=== PATIENT | male | born 1990 | race Caucasian/White ===

== ENCOUNTER 2017-06-12 19:01 | Emergency (ER) | payer BC ==
[2017-06-12] MEDS: ONDANSETRON 4 MG INJ IV (22:38)
[2017-06-12] MEDS: SOD CHLORIDE 0.9% 1,000 ML IV (22:39)
== END 2017-06-13 05:03 | disposition home or self-care (01) ==
LOC: E/R 06-13 05:03
DX: F10.929 Alcohol use, unspecified with intoxication, unspecified (principal); R40.2132 Coma scale, eyes open, to sound, at arrival to emergency department; R40.2242 Coma scale, best verbal response, confused conversation, at arrival to emergency department; R40.2352 Coma scale, best motor response, localizes pain, at arrival to emergency department; R51 Headache; R07.9 Chest pain, unspecified
CPT/HCPCS: 70450; 71045; 96374; 99285-25

== ENCOUNTER 2017-08-14 10:30 | Emergency (ER) | payer BC ==
[2017-08-14] MEDS: IBUPROFEN 800 MG TAB PO (12:18)
[2017-08-14] MEDS: BENOXINATE HCL/FLUORESCEIN SOD 5 ML OPHTH RIGHT EYE (12:25)
== END 2017-08-14 14:28 | disposition home or self-care (01) ==
LOC: FTE 10:30
DX: S05.91XA Unspecified injury of right eye and orbit, initial encounter (principal); E11.9 Type 2 diabetes mellitus without complications; I50.9 Heart failure, unspecified; F17.210 Nicotine dependence, cigarettes, uncomplicated; W34.00XA Accidental discharge from unspecified firearms or gun, initial encounter; Y92.9 Unspecified place or not applicable
CPT/HCPCS: 76536; 99284-25

== ENCOUNTER 2017-08-21 11:06 | Emergency (ER) | payer BC | END 2017-08-21 12:41 | disposition home or self-care (01) | LOC: FTE 11:06 | DX: Z76.0 Encounter for issue of repeat prescription (principal); J45.909 Unspecified asthma, uncomplicated; E10.9 Type 1 diabetes mellitus without complications; Z79.82 Long term (current) use of aspirin; Z79.4 Long term (current) use of insulin | CPT/HCPCS: 82962; 99282 ==

== ENCOUNTER 2017-08-24 08:04 | Emergency (ER) | payer BC ==
[2017-08-24 10:34] LABS: ADD MAN DIFF? NO
[2017-08-24 10:39] LABS: BASOPHILS % 0.5 % (0.0-2.0); EOSINOPHILS % 0.2 % (0.0-7.0); HEMOGLOBIN 15.9 g/dl (14.0-18.0); LYMPHOCYTES # 0.9 10^3/ul (0.8-2.9); LYMPHOCYTES % 22.5 % (15.0-51.0); MEAN CORPUSCULAR HEMOGLOBIN 31.8 pg (29.0-33.0); MEAN CORPUSCULAR HGB CONC 33.8 g/dl (32.0-37.0); MEAN PLATELET VOLUME 7.9 fl (7.4-10.4); MONOCYTE # 0.2 10^3/ul (0.3-0.9); MONOCYTES % 5.7 % (0.0-11.0); NEUTROPHIL # 2.8 10^3/ul (1.6-7.5); NEUTROPHILS % 69.9 % (39.0-77.0); PLATELET COUNT 413 10^3/UL (140-415); RED CELL DISTRIBUTION WIDTH 12.8 % (11.5-14.5)
[2017-08-24] MEDS: ONDANSETRON 4 MG INJ IV (10:45)
[2017-08-24] MEDS: morphine 2 MG INJ IV (10:45)
[2017-08-24] MEDS ORDERED: ONDANSETRON (ODT) 4 MG TAB ODT (10:46)
[2017-08-24 10:52] LABS: HEMOGLOBIN A1C 7.5 % (0-5.9)
[2017-08-24 10:58] LABS: ALANINE AMINOTRANSFERASE 47 IU/L (13-69); ALBUMIN 5.1 g/dl (3.3-4.9); ALBUMIN/GLOBULIN RATIO 1.15; ALKALINE PHOSPHATASE 118 IU/L (42-121); ANION GAP 39 (8-16); ASPARTATE AMINO TRANSFERASE 61 IU/L (15-46); BILIRUBIN,INDIRECT 0.3 mg/dl (0-1.1); BILIRUBIN,TOTAL 0.3 mg/dl (0.2-1.3); BLOOD UREA NITROGEN 12 mg/dl (7-20); CALCIUM 9.3 mg/dl (8.4-10.2); CARBON DIOXIDE 17 mmol/L (21-31); CHLORIDE 98 mmol/L (97-110); CREATINE KINASE 828 IU/L (23-200); CREATININE 0.84 mg/dl (0.61-1.24); GLUCOSE 271 mg/dl (70-220); POTASSIUM 4.6 mmol/L (3.5-5.1); SODIUM 149 mmol/L (135-144); TOTAL PROTEIN 9.5 g/dl (6.1-8.1)
[2017-08-24 11:00] LABS: INR 1.05; PROTIME 13.8 Sec (11.9-14.9); PT RATIO 1.1
[2017-08-24 11:01] LABS: PARTIAL THROMBOPLASTIN TIME 23.6 Sec (25.0-35.0)
[2017-08-24 11:09] LABS: CK INDEX 0.6
[2017-08-24 11:12] LABS: B-TYPE NATRIURETIC PEPTIDE < 11 PG/ML (0-125); CK-MB 5.35 ng/ml (0.0-2.4); TROPONIN-I < 0.012 ng/ml (0.00-0.12)
[2017-08-24 11:14] LABS: ADD UMIC YES; UR ASCORBIC ACID NEGATIVE (NEGATIVE); UR BILIRUBIN (Dip) NEGATIVE (NEGATIVE); UR BLOOD (Dip) 2+ mg/dL (NEGATIVE); UR CLARITY CLEAR (CLEAR); UR COLOR YELLOW (YELLOW); UR GLUCOSE (Dip) 3+ mg/dL (NEGATIVE); UR KETONES (Dip) 2+ mg/dL (NEGATIVE); UR LEUKOCYTE ESTERASE (Dip) NEGATIVE Leu/ul (NEGATIVE); UR MUCUS FEW /HPF (NONE SEEN); UR NITRITE (Dip) NEGATIVE (NEGATIVE); UR RBC 0 /HPF (0-5); UR SPECIFIC GRAVITY (Dip) 1.022 (1.003-1.030); UR TOTAL PROTEIN (Dip) 3+ mg/dl (NEGATIVE); UR UROBILINOGEN (Dip) NEGATIVE (NEGATIVE); UR WBC 1 /HPF (0-5)
[2017-08-24 11:29] LABS: AMPHETAMINE/METHAMPHETAMINE Negative (NEGATIVE); BARBITURATES Negative (NEGATIVE); BENZODIAZEPINES Negative (NEGATIVE); CANNABINOIDS Negative (NEGATIVE); COCAINE Negative (NEGATIVE); OPIATES Negative (NEGATIVE)
[2017-08-24] MEDS: INSULIN LISPRO 100 UNIT/ML VIAL SC (13:27)
[2017-08-24] MEDS: PROMETHAZINE 25 MG TAB PO (13:47)
== END 2017-08-24 15:45 | disposition home or self-care (01) ==
LOC: FTE 08:04 → E/R 15:45
DX: F10.929 Alcohol use, unspecified with intoxication, unspecified (principal); M94.0 Chondrocostal junction syndrome [Tietze]; E11.65 Type 2 diabetes mellitus with hyperglycemia; I10 Essential (primary) hypertension; I50.9 Heart failure, unspecified; F17.210 Nicotine dependence, cigarettes, uncomplicated; Z79.82 Long term (current) use of aspirin; Z79.4 Long term (current) use of insulin
CPT/HCPCS: 71045; 80053; 80306; 80307; 81001; 82550; 82553; 82962; 83036; 83880; 84484; 85025; 85610; 85730; 93005; 96372; 96374; 96375; 99285-25

== ENCOUNTER 2017-08-25 00:42 | Inpatient (IN) | payer BC ==
[2017-08-25 05:18] LABS: ADD MAN DIFF? NO
[2017-08-25 05:19] LABS: WHITE BLOOD COUNT 6.9 10^3/ul (4.8-10.8)
[2017-08-25 05:19] LABS: BASOPHILS % 0.3 % (0.0-2.0); EOSINOPHILS % 0.1 % (0.0-7.0); HEMATOCRIT 47.4 % (42.0-52.0); HEMOGLOBIN 16.3 g/dl (14.0-18.0); LYMPHOCYTES # 1.1 10^3/ul (0.8-2.9); LYMPHOCYTES % 15.6 % (15.0-51.0); MEAN CORPUSCULAR HEMOGLOBIN 31.8 pg (29.0-33.0); MEAN CORPUSCULAR HGB CONC 34.4 g/dl (32.0-37.0); MEAN CORPUSCULAR VOLUME 92.4 fl (82.0-101.0); MEAN PLATELET VOLUME 7.8 fl (7.4-10.4); MONOCYTE # 0.4 10^3/ul (0.3-0.9); MONOCYTES % 6.2 % (0.0-11.0); NEUTROPHIL # 5.4 10^3/ul (1.6-7.5); NEUTROPHILS % 77.5 % (39.0-77.0); PLATELET COUNT 417 10^3/UL (140-415); RED BLOOD COUNT 5.13 10^6/ul (4.70-6.10); RED CELL DISTRIBUTION WIDTH 13.2 % (11.5-14.5)
[2017-08-25] MEDS: ONDANSETRON 4 MG INJ IV (05:37)
[2017-08-25] MEDS: ASPIRIN 81 MG TAB PO ×2 (05:37→09:30)
[2017-08-25 05:45] LABS: ANION GAP 39 (8-16); BLOOD UREA NITROGEN 14 mg/dl (7-20); CALCIUM 9.8 mg/dl (8.4-10.2); CARBON DIOXIDE 15 mmol/L (21-31); CHLORIDE 98 mmol/L (97-110); CREATININE 1.02 mg/dl (0.61-1.24); GLUCOSE 269 mg/dl (70-220); POTASSIUM 5.3 mmol/L (3.5-5.1); SODIUM 147 mmol/L (135-144)
[2017-08-25 05:57] LABS: B-TYPE NATRIURETIC PEPTIDE 11 PG/ML (0-125)
[2017-08-25 06:00] LABS: TROPONIN-I < 0.012 ng/ml (0.00-0.12)
[2017-08-25] MEDS: DEXTROSE 5%-0.9% NACL 1,000 ML IV (06:25)
[2017-08-25] MEDS: INSULIN LISPRO 100 UNIT/ML VIAL SC (06:26)
[2017-08-25] MEDS ORDERED: ONDANSETRON 4 MG INJ IV ×2 (08:00→08:30)
[2017-08-25] MEDS ORDERED: ACETAMINOPHEN 325 MG TAB PO ×2 (08:00→08:30)
[2017-08-25] MEDS ORDERED: NACL 0.9% 3 ML SYG IV (08:30)
[2017-08-25] MEDS ORDERED: GLUCAGON 1 MG INJ IM (09:00)
[2017-08-25] MEDS ORDERED: DEXTROSE 50% 50 ML SYRINGE IV ×2 (09:00)
[2017-08-25] MEDS ORDERED: GLUCOSE GEL 15 GRAM TUBE BUCCAL (09:00)
[2017-08-25] MEDS ORDERED: LORAZEPAM 2 MG INJ IV (09:00)
[2017-08-25] MEDS ORDERED: GLUCOSE GEL 15 GRAM TUBE PO ×2 (09:00)
[2017-08-25] MEDS: SOD CHLORIDE 0.9% 1,000 ML IV ×2 (09:30→17:12)
[2017-08-25] MEDS: CHLORDIAZEPOXIDE 25 MG CAP PO ×3 (09:30→20:28)
[2017-08-25] MEDS: FOLIC ACID 1 MG TAB PO (09:31)
[2017-08-25] MEDS: THIAMINE 100 MG TAB PO (09:31)
[2017-08-25 09:32] LABS: HEMOGLOBIN A1C 7.7 % (0-5.9)
[2017-08-25] MEDS: HEPARIN 5,000 UNIT/0.5 ML VIAL SC ×2 (09:33→20:27)
[2017-08-25 09:42] LABS: THYROID STIMULATING HORMONE 0.172 MIU/L (0.465-4.680)
[2017-08-25] MEDS: NITROGLYCERIN (SL) 0.4 MG TAB SL (09:59)
[2017-08-25 10:24] LABS: FREE T4 (FREE THYROXINE) 0.93 ng/dl (0.79-2.35)
[2017-08-25 11:47] LABS: CREATINE KINASE 860 IU/L (23-200)
[2017-08-25 11:49] LABS: ANION GAP 29 (8-16); BLOOD UREA NITROGEN 12 mg/dl (7-20); CALCIUM 9.1 mg/dl (8.4-10.2); CARBON DIOXIDE 17 mmol/L (21-31); CHLORIDE 101 mmol/L (97-110); CREATININE 0.83 mg/dl (0.61-1.24); GLUCOSE 271 mg/dl (70-220); POTASSIUM 4.9 mmol/L (3.5-5.1); SODIUM 142 mmol/L (135-144)
[2017-08-25] MEDS: INSULIN ASPART [NOVOLOG] 3 ML PEN SC ×5 (11:51→20:29)
[2017-08-25 11:58] LABS: CK INDEX 0.6; CK-MB 5.33 ng/ml (0.0-2.4); TROPONIN-I < 0.012 ng/ml (0.00-0.12)
[2017-08-25 17:00] LABS: CREATINE KINASE 656 IU/L (23-200)
[2017-08-25 17:12] LABS: CK INDEX 0.8
[2017-08-25 17:14] LABS: CK-MB 5.21 ng/ml (0.0-2.4); TROPONIN-I < 0.012 ng/ml (0.00-0.12)
[2017-08-25] MEDS: HYDROCODONE/APAP (5/325) TAB PO (19:29)
[2017-08-25 19:37] LABS: ADD UMIC YES; UR ASCORBIC ACID NEGATIVE (NEGATIVE); UR BILIRUBIN (Dip) NEGATIVE (NEGATIVE); UR BLOOD (Dip) 1+ mg/dL (NEGATIVE); UR CLARITY CLEAR (CLEAR); UR COLOR YELLOW (YELLOW); UR GLUCOSE (Dip) 3+ mg/dL (NEGATIVE); UR KETONES (Dip) 2+ mg/dL (NEGATIVE); UR LEUKOCYTE ESTERASE (Dip) NEGATIVE Leu/ul (NEGATIVE); UR MUCUS FEW /HPF (NONE SEEN); UR NITRITE (Dip) NEGATIVE (NEGATIVE); UR RBC 0 /HPF (0-5); UR TOTAL PROTEIN (Dip) 2+ mg/dl (NEGATIVE); UR UROBILINOGEN (Dip) NEGATIVE (NEGATIVE); UR WBC 1 /HPF (0-5)
[2017-08-25 20:01] LABS: AMPHETAMINE/METHAMPHETAMINE Negative (NEGATIVE); BARBITURATES Negative (NEGATIVE); BENZODIAZEPINES Negative (NEGATIVE); CANNABINOIDS Negative (NEGATIVE); COCAINE Negative (NEGATIVE); OPIATES Negative (NEGATIVE)
[2017-08-25] MEDS: INSULIN GLARGINE [LANtus] 3 ML PEN SC (20:27)
[2017-08-26] MEDS: morphine 2 MG INJ IV ×2 (03:09→12:44)
[2017-08-26] MEDS: SOD CHLORIDE 0.9% 1,000 ML IV ×3 (03:10→22:47)
[2017-08-26 06:11] LABS: ADD MAN DIFF? NO
[2017-08-26 06:18] LABS: BASOPHILS % 0.3 % (0.0-2.0); EOSINOPHILS % 1.3 % (0.0-7.0); HEMATOCRIT 36.1 % (42.0-52.0); HEMOGLOBIN 12.7 g/dl (14.0-18.0); LYMPHOCYTES # 1.4 10^3/ul (0.8-2.9); LYMPHOCYTES % 44.4 % (15.0-51.0); MEAN CORPUSCULAR HEMOGLOBIN 32.8 pg (29.0-33.0); MEAN CORPUSCULAR HGB CONC 35.2 g/dl (32.0-37.0); MEAN CORPUSCULAR VOLUME 93.3 fl (82.0-101.0); MEAN PLATELET VOLUME 7.9 fl (7.4-10.4); MONOCYTE # 0.5 10^3/ul (0.3-0.9); MONOCYTES % 15.1 % (0.0-11.0); NEUTROPHIL # 1.2 10^3/ul (1.6-7.5); NEUTROPHILS % 38.9 % (39.0-77.0); PLATELET COUNT 264 10^3/UL (140-415); RED BLOOD COUNT 3.87 10^6/ul (4.70-6.10); RED CELL DISTRIBUTION WIDTH 13.1 % (11.5-14.5)
[2017-08-26 06:44] LABS: ALANINE AMINOTRANSFERASE 49 IU/L (13-69); ALBUMIN 3.8 g/dl (3.3-4.9); ALBUMIN/GLOBULIN RATIO 1.11; ALKALINE PHOSPHATASE 73 IU/L (42-121); ANION GAP 18 (8-16); ASPARTATE AMINO TRANSFERASE 56 IU/L (15-46); BILIRUBIN,INDIRECT 1.3 mg/dl (0-1.1); BILIRUBIN,TOTAL 1.3 mg/dl (0.2-1.3); BLOOD UREA NITROGEN 14 mg/dl (7-20); CALCIUM 8.8 mg/dl (8.4-10.2); CARBON DIOXIDE 26 mmol/L (21-31); CHLORIDE 102 mmol/L (97-110); CREATININE 0.84 mg/dl (0.61-1.24); GLUCOSE 182 mg/dl (70-220); POTASSIUM 3.5 mmol/L (3.5-5.1); SODIUM 142 mmol/L (135-144); TOTAL PROTEIN 7.2 g/dl (6.1-8.1)
[2017-08-26 06:50] LABS: PHOSPHORUS 2.8 mg/dl (2.5-4.9)
[2017-08-26 06:50] LABS: CHOL/HDL RATIO 2.8 RATIO; CHOLESTEROL 175 mg/dl (100-200); HDL CHOLESTEROL 62 mg/dl (30-63); LDL CHOLESTEROL,CALCULATED 93 mg/dl; MAGNESIUM 1.9 mg/dl (1.7-2.5); TRIGLYCERIDES 101 mg/dl (0-149)
[2017-08-26] MEDS: INSULIN ASPART [NOVOLOG] 3 ML PEN SC ×7 (08:22→20:44)
[2017-08-26] MEDS: THIAMINE 100 MG TAB PO (09:06)
[2017-08-26] MEDS: ASPIRIN 81 MG TAB PO (09:07)
[2017-08-26] MEDS: FOLIC ACID 1 MG TAB PO (09:07)
[2017-08-26] MEDS: HEPARIN 5,000 UNIT/0.5 ML VIAL SC ×2 (09:09→20:45)
[2017-08-26] MEDS: CHLORDIAZEPOXIDE 25 MG CAP PO (10:57)
[2017-08-26] MEDS: INSULIN GLARGINE [LANtus] 3 ML PEN SC (20:44)
[2017-08-26] MEDS: morphine LIQ (10 MG/5 ML) CUP PO (22:54)
[2017-08-27] MEDS: SOD CHLORIDE 0.9% 1,000 ML IV ×4 (00:30→17:42)
[2017-08-27] MEDS: morphine LIQ (10 MG/5 ML) CUP PO (06:22)
[2017-08-27 07:28] LABS: ADD MAN DIFF? NO
[2017-08-27 07:31] LABS: BASOPHILS % 0.3 % (0.0-2.0); EOSINOPHILS # 0.1 10^3/ul (0.0-0.5); EOSINOPHILS % 2.7 % (0.0-7.0); HEMATOCRIT 37.5 % (42.0-52.0); HEMOGLOBIN 12.9 g/dl (14.0-18.0); LYMPHOCYTES # 1.1 10^3/ul (0.8-2.9); MEAN CORPUSCULAR HEMOGLOBIN 31.9 pg (29.0-33.0); MEAN CORPUSCULAR HGB CONC 34.4 g/dl (32.0-37.0); MEAN CORPUSCULAR VOLUME 92.8 fl (82.0-101.0); MEAN PLATELET VOLUME 8.3 fl (7.4-10.4); MONOCYTE # 0.4 10^3/ul (0.3-0.9); MONOCYTES % 12.3 % (0.0-11.0); NEUTROPHIL # 1.4 10^3/ul (1.6-7.5); NEUTROPHILS % 46.7 % (39.0-77.0); PLATELET COUNT 275 10^3/UL (140-415); RED BLOOD COUNT 4.04 10^6/ul (4.70-6.10); RED CELL DISTRIBUTION WIDTH 12.4 % (11.5-14.5)
[2017-08-27] MEDS: INSULIN ASPART [NOVOLOG] 3 ML PEN SC ×7 (07:55→20:45)
[2017-08-27 07:56] LABS: ANION GAP 14 (8-16); BLOOD UREA NITROGEN 10 mg/dl (7-20); CARBON DIOXIDE 31 mmol/L (21-31); CHLORIDE 101 mmol/L (97-110); CREATININE 0.74 mg/dl (0.61-1.24); GLUCOSE 103 mg/dl (70-220); POTASSIUM 3.2 mmol/L (3.5-5.1); SODIUM 143 mmol/L (135-144)
[2017-08-27] MEDS: THIAMINE 100 MG TAB PO (08:36)
[2017-08-27] MEDS: FOLIC ACID 1 MG TAB PO (08:37)
[2017-08-27] MEDS: ASPIRIN 81 MG TAB PO (08:37)
[2017-08-27] MEDS: HEPARIN 5,000 UNIT/0.5 ML VIAL SC ×2 (08:49→20:45)
[2017-08-27] MEDS: POLYETHYLENE GLYCOL 17 GM PACKET PO (13:30)
[2017-08-27 16:06] LABS: C-PEPTIDE 0.12 ng/mL (0.80-3.85)
[2017-08-27 17:22] LABS: TROPONIN-I < 0.012 ng/ml (0.00-0.12)
[2017-08-27] MEDS: POTASSIUM CHLORIDE (SR) 20 MEQ TAB PO (17:38)
[2017-08-27] MEDS: INSULIN GLARGINE [LANtus] 3 ML PEN SC (20:46)
[2017-08-28] MEDS: morphine LIQ (10 MG/5 ML) CUP PO ×2 (02:05→23:08)
[2017-08-28] MEDS: SOD CHLORIDE 0.9% 1,000 ML IV ×3 (02:05→16:00)
[2017-08-28 07:48] LABS: ADD MAN DIFF? NO
[2017-08-28 07:54] LABS: WHITE BLOOD COUNT 2.8 10^3/ul (4.8-10.8)
[2017-08-28 07:54] LABS: BASOPHILS % 0.4 % (0.0-2.0); EOSINOPHILS # 0.1 10^3/ul (0.0-0.5); EOSINOPHILS % 3.5 % (0.0-7.0); HEMATOCRIT 39.1 % (42.0-52.0); HEMOGLOBIN 13.4 g/dl (14.0-18.0); LYMPHOCYTES # 1.2 10^3/ul (0.8-2.9); LYMPHOCYTES % 42.2 % (15.0-51.0); MEAN CORPUSCULAR HEMOGLOBIN 31.7 pg (29.0-33.0); MEAN CORPUSCULAR HGB CONC 34.3 g/dl (32.0-37.0); MEAN CORPUSCULAR VOLUME 92.4 fl (82.0-101.0); MEAN PLATELET VOLUME 8.4 fl (7.4-10.4); MONOCYTE # 0.3 10^3/ul (0.3-0.9); MONOCYTES % 11.7 % (0.0-11.0); NEUTROPHIL # 1.2 10^3/ul (1.6-7.5); NEUTROPHILS % 41.8 % (39.0-77.0); PLATELET COUNT 263 10^3/UL (140-415); RED BLOOD COUNT 4.23 10^6/ul (4.70-6.10); RED CELL DISTRIBUTION WIDTH 12.2 % (11.5-14.5)
[2017-08-28 08:14] LABS: ANION GAP 15 (8-16); BLOOD UREA NITROGEN 10 mg/dl (7-20); CARBON DIOXIDE 29 mmol/L (21-31); CHLORIDE 101 mmol/L (97-110); CREATININE 0.72 mg/dl (0.61-1.24); GLUCOSE 243 mg/dl (70-220); POTASSIUM 3.7 mmol/L (3.5-5.1); SODIUM 141 mmol/L (135-144)
[2017-08-28] MEDS: FOLIC ACID 1 MG TAB PO (08:36)
[2017-08-28] MEDS: ASPIRIN 81 MG TAB PO (08:36)
[2017-08-28] MEDS: THIAMINE 100 MG TAB PO (08:36)
[2017-08-28] MEDS: HEPARIN 5,000 UNIT/0.5 ML VIAL SC ×2 (08:47→20:43)
[2017-08-28] MEDS: INSULIN ASPART [NOVOLOG] 3 ML PEN SC ×7 (08:47→22:10)
[2017-08-28] MEDS: INSULIN GLARGINE [LANtus] 3 ML PEN SC (20:44)
[2017-08-29] MEDS: SOD CHLORIDE 0.9% 1,000 ML IV ×4 (00:38→23:56)
[2017-08-29] MEDS: INSULIN ASPART [NOVOLOG] 3 ML PEN SC ×7 (08:15→21:03)
[2017-08-29] MEDS: THIAMINE 100 MG TAB PO (08:40)
[2017-08-29] MEDS: ASPIRIN 81 MG TAB PO (08:40)
[2017-08-29] MEDS: FOLIC ACID 1 MG TAB PO (08:40)
[2017-08-29] MEDS: HEPARIN 5,000 UNIT/0.5 ML VIAL SC ×2 (08:46→21:04)
[2017-08-29 09:01] LABS: ADD MAN DIFF? NO
[2017-08-29 09:12] LABS: BASOPHILS % 0.3 % (0.0-2.0); EOSINOPHILS # 0.1 10^3/ul (0.0-0.5); EOSINOPHILS % 3.5 % (0.0-7.0); HEMATOCRIT 39.5 % (42.0-52.0); HEMOGLOBIN 13.8 g/dl (14.0-18.0); LYMPHOCYTES # 1.3 10^3/ul (0.8-2.9); MEAN CORPUSCULAR HEMOGLOBIN 32.5 pg (29.0-33.0); MEAN CORPUSCULAR HGB CONC 34.9 g/dl (32.0-37.0); MEAN CORPUSCULAR VOLUME 92.9 fl (82.0-101.0); MEAN PLATELET VOLUME 8.8 fl (7.4-10.4); MONOCYTE # 0.4 10^3/ul (0.3-0.9); MONOCYTES % 10.6 % (0.0-11.0); NEUTROPHIL # 1.6 10^3/ul (1.6-7.5); PLATELET COUNT 264 10^3/UL (140-415); RED BLOOD COUNT 4.25 10^6/ul (4.70-6.10); RED CELL DISTRIBUTION WIDTH 12.2 % (11.5-14.5)
[2017-08-29 09:12] LABS: WHITE BLOOD COUNT 3.4 10^3/ul (4.8-10.8)
[2017-08-29 09:28] LABS: ANION GAP 16 (8-16); BLOOD UREA NITROGEN 11 mg/dl (7-20); CALCIUM 9.4 mg/dl (8.4-10.2); CARBON DIOXIDE 29 mmol/L (21-31); CHLORIDE 100 mmol/L (97-110); GLUCOSE 234 mg/dl (70-220); POTASSIUM 3.7 mmol/L (3.5-5.1); SODIUM 141 mmol/L (135-144)
[2017-08-29] MEDS: INSULIN GLARGINE [LANtus] 3 ML PEN SC (21:04)
[2017-08-30 06:40] LABS: ADD MAN DIFF? NO
[2017-08-30 06:43] LABS: BASOPHILS % 0.3 % (0.0-2.0); EOSINOPHILS # 0.1 10^3/ul (0.0-0.5); EOSINOPHILS % 2.4 % (0.0-7.0); HEMATOCRIT 40.6 % (42.0-52.0); HEMOGLOBIN 14.1 g/dl (14.0-18.0); LYMPHOCYTES # 1.4 10^3/ul (0.8-2.9); LYMPHOCYTES % 40.4 % (15.0-51.0); MEAN CORPUSCULAR HEMOGLOBIN 31.8 pg (29.0-33.0); MEAN CORPUSCULAR HGB CONC 34.7 g/dl (32.0-37.0); MEAN CORPUSCULAR VOLUME 91.6 fl (82.0-101.0); MEAN PLATELET VOLUME 8.3 fl (7.4-10.4); MONOCYTE # 0.4 10^3/ul (0.3-0.9); MONOCYTES % 10.8 % (0.0-11.0); NEUTROPHIL # 1.5 10^3/ul (1.6-7.5); NEUTROPHILS % 45.8 % (39.0-77.0); PLATELET COUNT 247 10^3/UL (140-415); RED BLOOD COUNT 4.43 10^6/ul (4.70-6.10); RED CELL DISTRIBUTION WIDTH 12.3 % (11.5-14.5)
[2017-08-30 06:43] LABS: WHITE BLOOD COUNT 3.3 10^3/ul (4.8-10.8)
[2017-08-30 07:10] LABS: ANION GAP 18 (8-16); BLOOD UREA NITROGEN 13 mg/dl (7-20); CALCIUM 9.5 mg/dl (8.4-10.2); CARBON DIOXIDE 27 mmol/L (21-31); CHLORIDE 99 mmol/L (97-110); CREATININE 0.79 mg/dl (0.61-1.24); GLUCOSE 379 mg/dl (70-220); POTASSIUM 4.2 mmol/L (3.5-5.1); SODIUM 140 mmol/L (135-144)
[2017-08-30] MEDS: SOD CHLORIDE 0.9% 1,000 ML IV ×2 (08:30→15:51)
[2017-08-30] MEDS: THIAMINE 100 MG TAB PO (08:35)
[2017-08-30] MEDS: FOLIC ACID 1 MG TAB PO (08:35)
[2017-08-30] MEDS: ASPIRIN 81 MG TAB PO (08:35)
[2017-08-30] MEDS: INSULIN ASPART [NOVOLOG] 3 ML PEN SC ×6 (08:55→18:15)
[2017-08-30] MEDS: HEPARIN 5,000 UNIT/0.5 ML VIAL SC (08:56)
[2017-08-30] MEDS ORDERED: INSULIN GLARGINE [LANtus] 3 ML PEN SC (20:00)
== END 2017-08-30 21:05 | disposition left against medical advice (07) | DRG 206 ==
LOC: TEL 08-26 01:06 → E/R 00:42 → MS2 08:01 → MS3 11:49
DX: M94.0 Chondrocostal junction syndrome [Tietze] (principal); E87.2 Acidosis; R07.9 Chest pain, unspecified; E87.5 Hyperkalemia; F10.129 Alcohol abuse with intoxication, unspecified; F17.200 Nicotine dependence, unspecified, uncomplicated; Y90.6 Blood alcohol level of 120-199 mg/100 ml; Z79.4 Long term (current) use of insulin; E10.65 Type 1 diabetes mellitus with hyperglycemia
CPT/HCPCS: 36415; 71045; 74176; 80048; 80053; 80061; 80306; 80307; 81001; 82550; 82553; 82962; 83036; 83735; 83880; 84100; 84439; 84443; 84484; 84681; 85025; 93005; 93306; 96372; 96374; 99291-25

== ENCOUNTER 2017-10-20 19:30 | Emergency (ER) | payer BC ==
[2017-10-20] MEDS: SOD CHLORIDE 0.9% 2,000 ML IV (20:33)
[2017-10-20] MEDS: LACTATED RINGER'S 1,000 ML IV (20:33)
[2017-10-20 20:34] LABS: ADD MAN DIFF? NO
[2017-10-20 20:37] LABS: WHITE BLOOD COUNT 6.1 10^3/ul (4.8-10.8)
[2017-10-20 20:37] LABS: BASOPHILS % 0.5 % (0.0-2.0); EOSINOPHILS # 0.2 10^3/ul (0.0-0.5); EOSINOPHILS % 2.6 % (0.0-7.0); HEMATOCRIT 43.5 % (42.0-52.0); HEMOGLOBIN 15.2 g/dl (14.0-18.0); LYMPHOCYTES # 2.5 10^3/ul (0.8-2.9); MEAN CORPUSCULAR HGB CONC 34.9 g/dl (32.0-37.0); MEAN CORPUSCULAR VOLUME 91.6 fl (82.0-101.0); MEAN PLATELET VOLUME 8.2 fl (7.4-10.4); MONOCYTE # 0.5 10^3/ul (0.3-0.9); MONOCYTES % 7.7 % (0.0-11.0); NEUTROPHIL # 2.9 10^3/ul (1.6-7.5); PLATELET COUNT 378 10^3/UL (140-415); RED BLOOD COUNT 4.75 10^6/ul (4.70-6.10)
[2017-10-20] MEDS: KETOROLAC 30 MG INJ IV (20:39)
[2017-10-20] MEDS: LORAZEPAM 2 MG INJ IV (20:39)
[2017-10-20 20:53] LABS: ANION GAP 29 (8-16); BLOOD UREA NITROGEN 16 mg/dl (7-20); CALCIUM 9.6 mg/dl (8.4-10.2); CARBON DIOXIDE 24 mmol/L (21-31); CHLORIDE 104 mmol/L (97-110); CREATININE 0.93 mg/dl (0.61-1.24); GLUCOSE 136 mg/dl (70-220); POTASSIUM 4.1 mmol/L (3.5-5.1); SODIUM 153 mmol/L (135-144)
[2017-10-20 21:03] LABS: LACTIC ACID 5.6 mmol/L (0.5-2.0)
[2017-10-20 21:31] LABS: ALANINE AMINOTRANSFERASE 25 IU/L (13-69); ALBUMIN 4.9 g/dl (3.3-4.9); ALKALINE PHOSPHATASE 91 IU/L (42-121); ASPARTATE AMINO TRANSFERASE 51 IU/L (15-46); BILIRUBIN,INDIRECT 0.7 mg/dl (0-1.1); BILIRUBIN,TOTAL 0.7 mg/dl (0.2-1.3); LIPASE 99 U/L (23-300); TOTAL PROTEIN 8.7 g/dl (6.1-8.1)
[2017-10-20] MEDS: DEXTROSE 5%-0.9% NACL 1,000 ML IV (22:51)
[2017-10-20 23:24] LABS: LACTIC ACID 5.3 mmol/L (0.5-2.0)
== END 2017-10-21 01:33 | disposition home or self-care (01) ==
LOC: E/R 10-21 01:33 → FTE 19:30
DX: F10.121 Alcohol abuse with intoxication delirium (principal); I50.9 Heart failure, unspecified; E11.9 Type 2 diabetes mellitus without complications; Z79.4 Long term (current) use of insulin; Z87.891 Personal history of nicotine dependence
CPT/HCPCS: 36415; 71045; 80048; 80076; 80307; 82962; 83605; 83690; 85025; 96374; 96375; 99291-25

== ENCOUNTER 2017-11-19 14:58 | Inpatient (IN) | payer BC ==
[2017-11-19] MEDS: ONDANSETRON 4 MG INJ IV ×2 (16:43→17:25)
[2017-11-19] MEDS: PANTOPRAZOLE 40 MG INJ IV (16:43)
[2017-11-19] MEDS: FAMOTIDINE 20 MG INJ IV (16:43)
[2017-11-19 16:54] LABS: ADD MAN DIFF? NO
[2017-11-19 16:58] LABS: WHITE BLOOD COUNT 11.4 10^3/ul (4.8-10.8)
[2017-11-19 16:58] LABS: BASOPHILS % 0.3 % (0.0-2.0); HEMATOCRIT 50.1 % (42.0-52.0); HEMOGLOBIN 16.2 g/dl (14.0-18.0); LYMPHOCYTES # 0.7 10^3/ul (0.8-2.9); LYMPHOCYTES % 6.5 % (15.0-51.0); MEAN CORPUSCULAR HEMOGLOBIN 32.3 pg (29.0-33.0); MEAN CORPUSCULAR HGB CONC 32.3 g/dl (32.0-37.0); MEAN PLATELET VOLUME 8.4 fl (7.4-10.4); MONOCYTE # 0.5 10^3/ul (0.3-0.9); MONOCYTES % 4.5 % (0.0-11.0); NEUTROPHIL # 10.1 10^3/ul (1.6-7.5); NEUTROPHILS % 88.1 % (39.0-77.0); PLATELET COUNT 337 10^3/UL (140-415); RED BLOOD COUNT 5.01 10^6/ul (4.70-6.10); RED CELL DISTRIBUTION WIDTH 13.4 % (11.5-14.5)
[2017-11-19 17:19] LABS: INR 1.12; PARTIAL THROMBOPLASTIN TIME 22.9 Sec (25.0-35.0); PROTIME 14.6 Sec (11.9-14.9); PT RATIO 1.1
[2017-11-19 17:21] LABS: ALANINE AMINOTRANSFERASE 54 IU/L (13-69); ALBUMIN 5.8 g/dl (3.3-4.9); ALKALINE PHOSPHATASE 138 IU/L (42-121); AMYLASE 221 U/L (11-123); ANION GAP 45 (8-16); ASPARTATE AMINO TRANSFERASE 128 IU/L (15-46); BILIRUBIN,INDIRECT 0.6 mg/dl (0-1.1); BILIRUBIN,TOTAL 0.6 mg/dl (0.2-1.3); BLOOD UREA NITROGEN 13 mg/dl (7-20); CALCIUM 9.4 mg/dl (8.4-10.2); CHLORIDE 102 mmol/L (97-110); CREATININE 1.43 mg/dl (0.61-1.24); GLUCOSE 325 mg/dl (70-220); LIPASE 83 U/L (23-300); SODIUM 145 mmol/L (135-144)
[2017-11-19] MEDS: morphine 4 MG/ML VIAL IV (17:25)
[2017-11-19 17:26] LABS: ALBUMIN/GLOBULIN RATIO 1.18
[2017-11-19] MEDS: SOD CHLORIDE 0.9% 1,000 ML IV ×3 (17:26→21:55)
[2017-11-19 17:38] LABS: ACETAMINOPHEN < 10.0 ug/ml (10.0-30.0); CARBON DIOXIDE 5 mmol/L (21-31); POTASSIUM 6.7 mmol/L (3.5-5.1); SALICYLATE < 1.0 mg/dl (5.0-30.0); TOTAL PROTEIN 10.7 g/dl (6.1-8.1)
[2017-11-19 17:39] LABS: B-TYPE NATRIURETIC PEPTIDE < 11 PG/ML (0-125); TROPONIN-I < 0.010 ng/ml (0.000-0.120)
[2017-11-19] MEDS: NA POLYST SULFON 15 GM/60 ML BTL PO (17:50)
[2017-11-19] MEDS: NA BICARBONATE 8.4% 50 ML SYG IV (17:51)
[2017-11-19 18:00] LABS: ADD UMIC YES; UR ASCORBIC ACID NEGATIVE (NEGATIVE); UR BACTERIA FEW /HPF (NONE SEEN); UR BILIRUBIN (Dip) NEGATIVE (NEGATIVE); UR BLOOD (Dip) 3+ mg/dL (NEGATIVE); UR CLARITY CLEAR (CLEAR); UR COLOR YELLOW (YELLOW); UR GLUCOSE (Dip) 3+ mg/dL (NEGATIVE); UR KETONES (Dip) 2+ mg/dL (NEGATIVE); UR LEUKOCYTE ESTERASE (Dip) NEGATIVE Leu/ul (NEGATIVE); UR NITRITE (Dip) NEGATIVE (NEGATIVE); UR RBC 0 /HPF (0-5); UR SPECIFIC GRAVITY (Dip) 1.014 (1.003-1.030); UR TOTAL PROTEIN (Dip) 3+ mg/dl (NEGATIVE); UR UROBILINOGEN (Dip) NEGATIVE (NEGATIVE); UR WBC 2 /HPF (0-5)
[2017-11-19] MEDS: ALBUTEROL 0.5% (NEB) 2.5 MG/0.5 ML AMP INH (18:07)
[2017-11-19 18:23] LABS: AADO2 Venous 12.4 mmHg; MODE ROOM AIR; MetHgb Venous 0.5 %; Sample Type Blood venous; Site VENOUS LINE; Venous COHb 0.2 %; Venous Fraction OxyHgb 95.5 %; Venous Oxygen Sat 96.2 mmHG (55.0-75.0); Venous Total Hemglobin 16.5 g/dl
[2017-11-19 18:46] LABS: AMPHETAMINE/METHAMPHETAMINE Negative (NEGATIVE); BARBITURATES Negative (NEGATIVE); BENZODIAZEPINES Negative (NEGATIVE); CANNABINOIDS Negative (NEGATIVE); COCAINE Negative (NEGATIVE); OPIATES Negative (NEGATIVE)
[2017-11-19] MEDS: LABETALOL HCL 20MG INJ IV (18:52)
[2017-11-19] MEDS: FUROSEMIDE 40 MG INJ IV (18:54)
[2017-11-19] MEDS: MAGNESIUM SULFATE 2 GM, MULTIVITAMINS 10 ML, THIAMINE 100 MG, FOLIC ACID 1 MG in SOD CH... IV (19:25)
[2017-11-19] MEDS: INSULIN HUMAN REGULAR 100 UNIT in SOD CHLORIDE 0.9% 99 ML IV (19:39)
[2017-11-19] MEDS ORDERED: ACETAMINOPHEN 325 MG TAB PO (20:00)
[2017-11-19] MEDS ORDERED: NA PHOSPHATE/BIPHOS 133 ML ENEMA PR (20:00)
[2017-11-19] MEDS ORDERED: DOCUSATE SODIUM 100 MG CAP PO (20:00)
[2017-11-19] MEDS ORDERED: NITROGLYCERIN (SL) 0.4 MG TAB SL (20:00)
[2017-11-19] MEDS ORDERED: INSULIN HUMAN REGULAR 100 UNIT in SOD CHLORIDE 0.9% 99 ML IV (20:00)
[2017-11-19] MEDS ORDERED: DEXTROSE 50% 50 ML SYRINGE IV (20:00)
[2017-11-19] MEDS ORDERED: POTASSIUM CHLORIDE 50 ML IVPB (20:00)
[2017-11-19] MEDS ORDERED: ALBUTEROL/IPRATROPIUM (NEB) 3 ML AMP HHN (20:00)
[2017-11-19] MEDS ORDERED: MAGNESIUM HYDROXIDE 30ML CUP PO (20:00)
[2017-11-19] MEDS ORDERED: NACL 0.9% 3 ML SYG IV (20:00)
[2017-11-19] MEDS ORDERED: hydrALAzine 20 MG INJ IV (20:00)
[2017-11-19] MEDS: ACCU-CHEK XX ×4 (20:45→23:06)
[2017-11-19] MEDS: HEPARIN 5,000 UNIT/0.5 ML VIAL SC (20:49)
[2017-11-19] MEDS: morphine 2 MG INJ IV (21:05)
[2017-11-19] MEDS: POTASSIUM CHLORIDE 10 MEQ in SOD CHLORIDE 0.9% 1,000 ML IV (21:32)
[2017-11-19 21:33] LABS: PHOSPHORUS 4.6 mg/dl (2.5-4.9)
[2017-11-19 21:33] LABS: ANION GAP 40 (8-16); BLOOD UREA NITROGEN 13 mg/dl (7-20); CALCIUM 7.8 mg/dl (8.4-10.2); CHLORIDE 104 mmol/L (97-110); CREATININE 1.28 mg/dl (0.61-1.24); GLUCOSE 298 mg/dl (70-220); SODIUM 144 mmol/L (135-144)
[2017-11-19 21:34] LABS: GLUCOSE, FASTING 301 mg/dl (70-110)
[2017-11-19 21:41] LABS: HEMOGLOBIN A1C 8.6 % (0-5.9)
[2017-11-19 21:48] LABS: CARBON DIOXIDE 6 mmol/L (21-31)
[2017-11-19 21:49] LABS: POTASSIUM 5.7 mmol/L (3.5-5.1)
[2017-11-19 21:50] LABS: FREE T4 (FREE THYROXINE) 0.67 ng/dl (0.79-2.35)
[2017-11-19] MEDS: LACTATED RINGER'S 1,000 ML IV (21:55)
[2017-11-19] MEDS: HYDROCODONE/APAP (5/325) TAB PO (22:35)
[2017-11-19] MEDS: DEXTROSE 5%-0.45% NACL 1,000 ML IV (23:07)
[2017-11-20] MEDS: ACCU-CHEK XX ×15 (00:15→14:00)
[2017-11-20] MEDS: ONDANSETRON 4 MG INJ IV (01:03)
[2017-11-20] MEDS: morphine 2 MG INJ IV (01:04)
[2017-11-20] MEDS: LORAZEPAM 2 MG INJ IV (03:18)
[2017-11-20 05:10] LABS: ADD MAN DIFF? NO
[2017-11-20 05:19] LABS: WHITE BLOOD COUNT 6.9 10^3/ul (4.8-10.8)
[2017-11-20 05:19] LABS: ABNORMAL IP MESSAGE 1; BASOPHILS % 0.1 % (0.0-2.0); HEMATOCRIT 42.3 % (42.0-52.0); HEMOGLOBIN 14.5 g/dl (14.0-18.0); LYMPHOCYTES # 0.3 10^3/ul (0.8-2.9); LYMPHOCYTES % 4.4 % (15.0-51.0); MEAN CORPUSCULAR HEMOGLOBIN 31.9 pg (29.0-33.0); MEAN CORPUSCULAR HGB CONC 34.3 g/dl (32.0-37.0); MEAN CORPUSCULAR VOLUME 93.2 fl (82.0-101.0); MEAN PLATELET VOLUME 8.5 fl (7.4-10.4); MONOCYTES % 15.2 % (0.0-11.0); NEUTROPHIL # 5.5 10^3/ul (1.6-7.5); NEUTROPHILS % 79.7 % (39.0-77.0); PLATELET COUNT 285 10^3/UL (140-415); POSITIVE DIFF @See below; RED BLOOD COUNT 4.54 10^6/ul (4.70-6.10); RED CELL DISTRIBUTION WIDTH 13.1 % (11.5-14.5)
[2017-11-20] MEDS: SOD CHLORIDE 0.9% 1,000 ML IV ×2 (05:32→14:39)
[2017-11-20 05:44] LABS: CHOLESTEROL 244 mg/dl (100-200)
[2017-11-20 05:44] LABS: CHOL/HDL RATIO 2.2 RATIO; HDL CHOLESTEROL 108 mg/dl (30-63); LDL CHOLESTEROL,CALCULATED 108 mg/dl; TRIGLYCERIDES 139 mg/dl (0-149)
[2017-11-20 05:45] LABS: ANION GAP 21 (8-16); BLOOD UREA NITROGEN 13 mg/dl (7-20); CALCIUM 8.7 mg/dl (8.4-10.2); CARBON DIOXIDE 24 mmol/L (21-31); CHLORIDE 104 mmol/L (97-110); CREATININE 0.98 mg/dl (0.61-1.24); GLUCOSE 106 mg/dl (70-220); POTASSIUM 4.4 mmol/L (3.5-5.1); SODIUM 145 mmol/L (135-144)
[2017-11-20 05:57] LABS: PHOSPHORUS 2.1 mg/dl (2.5-4.9)
[2017-11-20 05:57] LABS: MAGNESIUM 2.4 mg/dl (1.7-2.5)
[2017-11-20 06:14] LABS: THYROID STIMULATING HORMONE 0.174 MIU/L (0.465-4.680)
[2017-11-20] MEDS: PANTOPRAZOLE (EC) 40 MG TAB PO ×2 (06:28→17:26)
[2017-11-20] MEDS: DEXTROSE 50% 50 ML SYRINGE IV (06:35)
[2017-11-20 06:45] LABS: HEMOGLOBIN A1C 8.8 % (0-5.9)
[2017-11-20] MEDS: DEXTROSE 5%-0.45% NACL 1,000 ML IV (08:04)
[2017-11-20] MEDS: CHLORDIAZEPOXIDE 25 MG CAP PO ×3 (08:48→21:29)
[2017-11-20] MEDS: FOLIC ACID 1 MG TAB PO ×2 (08:48→08:49)
[2017-11-20] MEDS: MULTIVITAMINS THERAPEUTIC TAB PO (08:48)
[2017-11-20] MEDS: HEPARIN 5,000 UNIT/0.5 ML VIAL SC ×2 (08:49→21:00)
[2017-11-20] MEDS: THIAMINE 100 MG TAB PO ×2 (08:49→08:50)
[2017-11-20] MEDS: HYDROCODONE/APAP (5/325) TAB PO ×2 (09:05→21:40)
[2017-11-20 10:28] LABS: ALANINE AMINOTRANSFERASE 46 IU/L (13-69); ALBUMIN 4.4 g/dl (3.3-4.9); ALBUMIN/GLOBULIN RATIO 1.12; ALKALINE PHOSPHATASE 84 IU/L (42-121); ANION GAP 15 (8-16); ASPARTATE AMINO TRANSFERASE 122 IU/L (15-46); BILIRUBIN,INDIRECT 1.1 mg/dl (0-1.1); BILIRUBIN,TOTAL 1.1 mg/dl (0.2-1.3); BLOOD UREA NITROGEN 15 mg/dl (7-20); CALCIUM 8.6 mg/dl (8.4-10.2); CARBON DIOXIDE 24 mmol/L (21-31); CHLORIDE 106 mmol/L (97-110); CREATININE 0.95 mg/dl (0.61-1.24); GLUCOSE 115 mg/dl (70-220); POTASSIUM 4.3 mmol/L (3.5-5.1); SODIUM 141 mmol/L (135-144); TOTAL PROTEIN 8.3 g/dl (6.1-8.1)
[2017-11-20] MEDS ORDERED: ACCU-CHEK XX (10:30)
[2017-11-20] MEDS ORDERED: DEXTROSE 50% 50 ML SYRINGE IV ×4 (10:30→12:30)
[2017-11-20] MEDS: INSULIN HUMAN REGULAR 100 UNIT in SOD CHLORIDE 0.9% 99 ML IV (11:16)
[2017-11-20] MEDS: POTASSIUM PHOSPHATE 20 MEQ in SOD CHLORIDE 0.9% 250 ML IVPB (11:55)
[2017-11-20] MEDS ORDERED: GLUCAGON 1 MG INJ IM (12:30)
[2017-11-20] MEDS ORDERED: GLUCOSE GEL 15 GRAM TUBE PO ×2 (12:30)
[2017-11-20] MEDS ORDERED: GLUCOSE GEL 15 GRAM TUBE BUCCAL (12:30)
[2017-11-20 14:46] LABS: ANION GAP 18 (8-16); BLOOD UREA NITROGEN 14 mg/dl (7-20); CALCIUM 8.5 mg/dl (8.4-10.2); CARBON DIOXIDE 22 mmol/L (21-31); CHLORIDE 104 mmol/L (97-110); CREATININE 0.93 mg/dl (0.61-1.24); GLUCOSE 244 mg/dl (70-220); POTASSIUM 4.1 mmol/L (3.5-5.1); SODIUM 140 mmol/L (135-144)
[2017-11-20] MEDS: INSULIN GLARGINE [LANtus] 3 ML PEN SC (14:48)
[2017-11-20] MEDS: INSULIN ASPART [NOVOLOG] 3 ML PEN SC ×3 (17:25→21:29)
[2017-11-20 18:35] LABS: ANION GAP 17 (8-16); BLOOD UREA NITROGEN 14 mg/dl (7-20); CALCIUM 8.9 mg/dl (8.4-10.2); CARBON DIOXIDE 22 mmol/L (21-31); CHLORIDE 107 mmol/L (97-110); CREATININE 0.98 mg/dl (0.61-1.24); GLUCOSE 96 mg/dl (70-220); MAGNESIUM 2.2 mg/dl (1.7-2.5); PHOSPHORUS 1.6 mg/dl (2.5-4.9); POTASSIUM 3.5 mmol/L (3.5-5.1); SODIUM 142 mmol/L (135-144)
[2017-11-21] MEDS: SOD CHLORIDE 0.9% 1,000 ML IV ×3 (00:03→20:00)
[2017-11-21] MEDS: ACCU-CHEK XX (02:12)
[2017-11-21] MEDS: INSULIN ASPART [NOVOLOG] 3 ML PEN SC ×8 (02:32→20:41)
[2017-11-21 05:02] LABS: ADD MAN DIFF? NO
[2017-11-21 05:07] LABS: BASOPHILS % 0.2 % (0.0-2.0); EOSINOPHILS # 0.1 10^3/ul (0.0-0.5); EOSINOPHILS % 2.2 % (0.0-7.0); HEMATOCRIT 37.8 % (42.0-52.0); HEMOGLOBIN 12.8 g/dl (14.0-18.0); LYMPHOCYTES # 0.9 10^3/ul (0.8-2.9); LYMPHOCYTES % 22.6 % (15.0-51.0); MEAN CORPUSCULAR HEMOGLOBIN 31.8 pg (29.0-33.0); MEAN CORPUSCULAR HGB CONC 33.9 g/dl (32.0-37.0); MEAN CORPUSCULAR VOLUME 93.8 fl (82.0-101.0); MEAN PLATELET VOLUME 8.6 fl (7.4-10.4); MONOCYTE # 0.5 10^3/ul (0.3-0.9); MONOCYTES % 12.9 % (0.0-11.0); NEUTROPHIL # 2.5 10^3/ul (1.6-7.5); NEUTROPHILS % 61.9 % (39.0-77.0); PLATELET COUNT 200 10^3/UL (140-415); RED BLOOD COUNT 4.03 10^6/ul (4.70-6.10); RED CELL DISTRIBUTION WIDTH 13.4 % (11.5-14.5)
[2017-11-21 05:33] LABS: ANION GAP 17 (8-16); BLOOD UREA NITROGEN 13 mg/dl (7-20); CALCIUM 9.1 mg/dl (8.4-10.2); CARBON DIOXIDE 26 mmol/L (21-31); CHLORIDE 103 mmol/L (97-110); CREATININE 0.91 mg/dl (0.61-1.24); GLUCOSE 171 mg/dl (70-220); POTASSIUM 3.9 mmol/L (3.5-5.1); SODIUM 142 mmol/L (135-144)
[2017-11-21] MEDS: PANTOPRAZOLE (EC) 40 MG TAB PO ×2 (06:15→17:19)
[2017-11-21] MEDS: HYDROCODONE/APAP (5/325) TAB PO ×3 (06:16→23:48)
[2017-11-21] MEDS: CHLORDIAZEPOXIDE 25 MG CAP PO ×3 (06:16→21:11)
[2017-11-21 06:46] LABS: PHOSPHORUS 1.9 mg/dl (2.5-4.9)
[2017-11-21 06:46] LABS: MAGNESIUM 2.2 mg/dl (1.7-2.5)
[2017-11-21] MEDS: INSULIN GLARGINE [LANtus] 3 ML PEN SC (08:17)
[2017-11-21] MEDS: HEPARIN 5,000 UNIT/0.5 ML VIAL SC ×2 (08:18→20:40)
[2017-11-21] MEDS: THIAMINE 100 MG TAB PO (08:19)
[2017-11-21] MEDS: FOLIC ACID 1 MG TAB PO (08:19)
[2017-11-21] MEDS: MULTIVITAMINS THERAPEUTIC TAB PO (08:19)
[2017-11-21] MEDS: POTASSIUM PHOSPHATE 40 MEQ in SOD CHLORIDE 0.9% 250 ML IVPB (12:47)
[2017-11-21] MEDS: morphine 2 MG INJ IV (15:40)
[2017-11-22] MEDS: ACCU-CHEK XX (01:24)
[2017-11-22] MEDS: SOD CHLORIDE 0.9% 1,000 ML IV ×2 (02:23→17:15)
[2017-11-22] MEDS: HYDROCODONE/APAP (5/325) TAB PO ×2 (06:03→21:31)
[2017-11-22] MEDS: PANTOPRAZOLE (EC) 40 MG TAB PO ×2 (06:03→17:15)
[2017-11-22] MEDS: CHLORDIAZEPOXIDE 25 MG CAP PO ×3 (06:03→21:14)
[2017-11-22 06:45] LABS: ADD MAN DIFF? NO
[2017-11-22 06:52] LABS: BASOPHILS % 0.3 % (0.0-2.0); EOSINOPHILS # 0.1 10^3/ul (0.0-0.5); EOSINOPHILS % 3.5 % (0.0-7.0); HEMATOCRIT 38.3 % (42.0-52.0); HEMOGLOBIN 13.3 g/dl (14.0-18.0); LYMPHOCYTES # 0.9 10^3/ul (0.8-2.9); LYMPHOCYTES % 29.7 % (15.0-51.0); MEAN CORPUSCULAR HEMOGLOBIN 32.5 pg (29.0-33.0); MEAN CORPUSCULAR HGB CONC 34.7 g/dl (32.0-37.0); MEAN CORPUSCULAR VOLUME 93.6 fl (82.0-101.0); MEAN PLATELET VOLUME 8.8 fl (7.4-10.4); MONOCYTE # 0.4 10^3/ul (0.3-0.9); MONOCYTES % 14.3 % (0.0-11.0); NEUTROPHIL # 1.5 10^3/ul (1.6-7.5); NEUTROPHILS % 51.9 % (39.0-77.0); PLATELET COUNT 173 10^3/UL (140-415); RED BLOOD COUNT 4.09 10^6/ul (4.70-6.10); RED CELL DISTRIBUTION WIDTH 13.1 % (11.5-14.5)
[2017-11-22 06:52] LABS: WHITE BLOOD COUNT 2.9 10^3/ul (4.8-10.8)
[2017-11-22 07:31] LABS: ANION GAP 16 (8-16); BLOOD UREA NITROGEN 11 mg/dl (7-20); CALCIUM 9.1 mg/dl (8.4-10.2); CARBON DIOXIDE 23 mmol/L (21-31); CHLORIDE 104 mmol/L (97-110); CREATININE 0.75 mg/dl (0.61-1.24); GLUCOSE 346 mg/dl (70-220); SODIUM 139 mmol/L (135-144)
[2017-11-22] MEDS: MULTIVITAMINS THERAPEUTIC TAB PO (08:10)
[2017-11-22] MEDS: FOLIC ACID 1 MG TAB PO (08:10)
[2017-11-22] MEDS: HEPARIN 5,000 UNIT/0.5 ML VIAL SC ×2 (08:11→21:15)
[2017-11-22] MEDS: INSULIN ASPART [NOVOLOG] 3 ML PEN SC ×7 (08:21→21:14)
[2017-11-22] MEDS: INSULIN GLARGINE [LANtus] 3 ML PEN SC (08:24)
[2017-11-22] MEDS: THIAMINE 100 MG TAB PO (09:00)
[2017-11-22] MEDS: morphine LIQ (10 MG/5 ML) CUP PO (11:32)
[2017-11-22 15:42] LABS: CREATININE, RANDOM URINE 62 mg/dL (20-370); MICROALBUMIN 130.1 mg/dL; MICROALBUMIN/CREATININE RATIO 2098 (<30)
[2017-11-22 15:45] LABS: MAGNESIUM 1.7 mg/dl (1.7-2.5)
[2017-11-22 15:45] LABS: PHOSPHORUS 4.1 mg/dl (2.5-4.9)
[2017-11-23] MEDS: ACCU-CHEK XX (02:00)
[2017-11-23] MEDS: SOD CHLORIDE 0.9% 1,000 ML IV ×3 (02:00→22:50)
[2017-11-23] MEDS: PANTOPRAZOLE (EC) 40 MG TAB PO ×2 (05:56→17:06)
[2017-11-23] MEDS: CHLORDIAZEPOXIDE 25 MG CAP PO ×3 (05:56→20:46)
[2017-11-23] MEDS: HYDROCODONE/APAP (5/325) TAB PO ×3 (05:56→20:46)
[2017-11-23] MEDS: INSULIN GLARGINE [LANtus] 3 ML PEN SC (08:15)
[2017-11-23] MEDS: INSULIN ASPART [NOVOLOG] 3 ML PEN SC ×7 (08:15→20:39)
[2017-11-23] MEDS: FOLIC ACID 1 MG TAB PO (08:57)
[2017-11-23] MEDS: MULTIVITAMINS THERAPEUTIC TAB PO (08:57)
[2017-11-23 09:00] LABS: ADD MAN DIFF? NO
[2017-11-23] MEDS: HEPARIN 5,000 UNIT/0.5 ML VIAL SC ×2 (09:01→20:49)
[2017-11-23 09:13] LABS: BASOPHILS % 0.3 % (0.0-2.0); EOSINOPHILS # 0.1 10^3/ul (0.0-0.5); EOSINOPHILS % 1.6 % (0.0-7.0); HEMOGLOBIN 13.8 g/dl (14.0-18.0); LYMPHOCYTES % 26.5 % (15.0-51.0); MEAN CORPUSCULAR HEMOGLOBIN 32.9 pg (29.0-33.0); MEAN CORPUSCULAR HGB CONC 35.4 g/dl (32.0-37.0); MEAN CORPUSCULAR VOLUME 93.1 fl (82.0-101.0); MEAN PLATELET VOLUME 8.9 fl (7.4-10.4); MONOCYTE # 0.4 10^3/ul (0.3-0.9); NEUTROPHIL # 2.3 10^3/ul (1.6-7.5); NEUTROPHILS % 61.3 % (39.0-77.0); PLATELET COUNT 195 10^3/UL (140-415); RED BLOOD COUNT 4.19 10^6/ul (4.70-6.10); RED CELL DISTRIBUTION WIDTH 12.5 % (11.5-14.5)
[2017-11-23 09:13] LABS: WHITE BLOOD COUNT 3.8 10^3/ul (4.8-10.8)
[2017-11-23 09:36] LABS: ANION GAP 16 (8-16); BLOOD UREA NITROGEN 15 mg/dl (7-20); CALCIUM 9.6 mg/dl (8.4-10.2); CARBON DIOXIDE 24 mmol/L (21-31); CHLORIDE 99 mmol/L (97-110); CREATININE 0.85 mg/dl (0.61-1.24); POTASSIUM 4.4 mmol/L (3.5-5.1); SODIUM 135 mmol/L (135-144)
[2017-11-23 10:08] LABS: GLUCOSE 518 mg/dl (70-220)
[2017-11-23] MEDS: THIAMINE 100 MG TAB PO (12:07)
[2017-11-23] MEDS: NICOTINE (14 MG/24 HR) PATCH TRANSDERM (17:00)
[2017-11-23] MEDS: SENNA/DOCUSATE NA (8.6MG/50MG) TAB PO (20:39)
[2017-11-24] MEDS: ACCU-CHEK XX (01:16)
[2017-11-24] MEDS: CHLORDIAZEPOXIDE 25 MG CAP PO (05:57)
[2017-11-24] MEDS: PANTOPRAZOLE (EC) 40 MG TAB PO (05:57)
[2017-11-24 06:10] LABS: ADD MAN DIFF? NO
[2017-11-24 06:16] LABS: BASOPHILS % 0.6 % (0.0-2.0); EOSINOPHILS # 0.1 10^3/ul (0.0-0.5); EOSINOPHILS % 1.4 % (0.0-7.0); HEMATOCRIT 38.8 % (42.0-52.0); HEMOGLOBIN 13.5 g/dl (14.0-18.0); LYMPHOCYTES # 1.4 10^3/ul (0.8-2.9); LYMPHOCYTES % 40.8 % (15.0-51.0); MEAN CORPUSCULAR HEMOGLOBIN 31.5 pg (29.0-33.0); MEAN CORPUSCULAR HGB CONC 34.8 g/dl (32.0-37.0); MEAN CORPUSCULAR VOLUME 90.7 fl (82.0-101.0); MEAN PLATELET VOLUME 8.9 fl (7.4-10.4); MONOCYTE # 0.4 10^3/ul (0.3-0.9); MONOCYTES % 10.2 % (0.0-11.0); NEUTROPHIL # 1.7 10^3/ul (1.6-7.5); NEUTROPHILS % 46.7 % (39.0-77.0); PLATELET COUNT 194 10^3/UL (140-415); RED BLOOD COUNT 4.28 10^6/ul (4.70-6.10); RED CELL DISTRIBUTION WIDTH 12.8 % (11.5-14.5)
[2017-11-24 06:16] LABS: WHITE BLOOD COUNT 3.5 10^3/ul (4.8-10.8)
[2017-11-24 06:53] LABS: PHOSPHORUS 4.8 mg/dl (2.5-4.9)
[2017-11-24 06:53] LABS: MAGNESIUM 1.7 mg/dl (1.7-2.5)
[2017-11-24 06:56] LABS: ANION GAP 14 (8-16); BLOOD UREA NITROGEN 16 mg/dl (7-20); CARBON DIOXIDE 25 mmol/L (21-31); CHLORIDE 103 mmol/L (97-110); GLUCOSE 398 mg/dl (70-220); POTASSIUM 4.4 mmol/L (3.5-5.1); SODIUM 138 mmol/L (135-144)
[2017-11-24] MEDS: INSULIN ASPART [NOVOLOG] 3 ML PEN SC ×2 (08:05→08:06)
[2017-11-24] MEDS: INSULIN GLARGINE [LANtus] 3 ML PEN SC ×2 (08:06→08:41)
[2017-11-24] MEDS: HEPARIN 5,000 UNIT/0.5 ML VIAL SC (08:07)
[2017-11-24] MEDS: MULTIVITAMINS THERAPEUTIC TAB PO (08:10)
[2017-11-24] MEDS: THIAMINE 100 MG TAB PO (08:10)
[2017-11-24] MEDS: NICOTINE (14 MG/24 HR) PATCH TRANSDERM (08:10)
[2017-11-24] MEDS: FOLIC ACID 1 MG TAB PO (08:11)
[2017-11-24] MEDS ORDERED: INSULIN ASPART [NOVOLOG] 3 ML PEN SC (12:00)
== END 2017-11-24 12:05 | disposition home or self-care (01) | DRG 637 ==
LOC: MS4 11-21 11:23 → E/R 14:58 → PP2 11-23 22:08 → ICU 19:21
PROVIDERS: Hospitalist
DX: E10.10 Type 1 diabetes mellitus with ketoacidosis without coma (principal); K29.21 Alcoholic gastritis with bleeding; N17.9 Acute kidney failure, unspecified; F10.229 Alcohol dependence with intoxication, unspecified; Y90.7 Blood alcohol level of 200-239 mg/100 ml; E87.5 Hyperkalemia; F17.200 Nicotine dependence, unspecified, uncomplicated; J45.909 Unspecified asthma, uncomplicated; I25.10 Atherosclerotic heart disease of native coronary artery without angina pectoris; I50.9 Heart failure, unspecified; F17.210 Nicotine dependence, cigarettes, uncomplicated; K59.00 Constipation, unspecified; Z91.14 Patient's other noncompliance with medication regimen
CPT/HCPCS: 36415; 71045; 74176; 80048; 80053; 80061; 80307; 81001; 82043; 82150; 82803; 82947; 82962; 83036; 83690; 83735; 83880; 84100; 84439; 84443; 84484; 85025; 85610; 85730; 86850; 86900; 86901; 87040; 87081; 93005; 96361; 96374; 96375; 96376; 99291-25

== ENCOUNTER 2017-12-09 22:27 | Inpatient (IN) | payer BC ==
[2017-12-10] MEDS ORDERED: ACETAMINOPHEN 500 MG TAB PO (01:29)
[2017-12-10] MEDS ORDERED: ONDANSETRON (ODT) 4 MG TAB ODT (01:29)
[2017-12-10] MEDS ORDERED: DICYCLOMINE 10 MG CAP PO (01:30)
[2017-12-10] MEDS ORDERED: IBUPROFEN 200 MG TAB PO (01:30)
[2017-12-10] MEDS: ONDANSETRON 4 MG INJ IV ×2 (02:27→04:15)
[2017-12-10] MEDS: PANTOPRAZOLE 40 MG INJ IV ×2 (02:27→06:00)
[2017-12-10] MEDS: SOD CHLORIDE 0.9% 1,000 ML IV ×2 (02:27→07:11)
[2017-12-10 02:34] LABS: ADD MAN DIFF? NO
[2017-12-10 02:36] LABS: ABNORMAL IP MESSAGE 1; BASOPHILS % 0.1 % (0.0-2.0); EOSINOPHILS # 0.1 10^3/ul (0.0-0.5); EOSINOPHILS % 1.8 % (0.0-7.0); HEMATOCRIT 38.7 % (42.0-52.0); HEMOGLOBIN 13.1 g/dl (14.0-18.0); LYMPHOCYTES # 0.5 10^3/ul (0.8-2.9); LYMPHOCYTES % 7.7 % (15.0-51.0); MEAN CORPUSCULAR HEMOGLOBIN 32.8 pg (29.0-33.0); MEAN CORPUSCULAR HGB CONC 33.9 g/dl (32.0-37.0); MEAN PLATELET VOLUME 8.1 fl (7.4-10.4); MONOCYTE # 0.4 10^3/ul (0.3-0.9); MONOCYTES % 5.8 % (0.0-11.0); NEUTROPHILS % 84.5 % (39.0-77.0); PLATELET COUNT 204 10^3/UL (140-415); POSITIVE DIFF @See below; RED BLOOD COUNT 3.99 10^6/ul (4.70-6.10); RED CELL DISTRIBUTION WIDTH 13.8 % (11.5-14.5)
[2017-12-10 02:36] LABS: WHITE BLOOD COUNT 7.1 10^3/ul (4.8-10.8)
[2017-12-10 03:00] LABS: ALANINE AMINOTRANSFERASE 39 IU/L (13-69); ALBUMIN/GLOBULIN RATIO 1.38; ALKALINE PHOSPHATASE 106 IU/L (42-121); ANION GAP 31 (8-16); ASPARTATE AMINO TRANSFERASE 60 IU/L (15-46); BILIRUBIN,INDIRECT 1.2 mg/dl (0-1.1); BILIRUBIN,TOTAL 1.2 mg/dl (0.2-1.3); BLOOD UREA NITROGEN 11 mg/dl (7-20); CALCIUM 9.5 mg/dl (8.4-10.2); CARBON DIOXIDE 14 mmol/L (21-31); CHLORIDE 98 mmol/L (97-110); CREATININE 0.99 mg/dl (0.61-1.24); GLUCOSE 319 mg/dl (70-220); LIPASE 140 U/L (23-300); POTASSIUM 4.9 mmol/L (3.5-5.1); SODIUM 138 mmol/L (135-144); TOTAL PROTEIN 8.6 g/dl (6.1-8.1)
[2017-12-10] MEDS ORDERED: SODIUM CHLORIDE 23.4% 77 MEQ, POTASSIUM CHLORIDE 40 MEQ in DEXTROSE 10% 1,000 ML IV ×2 (03:23→13:22)
[2017-12-10] MEDS ORDERED: POTASSIUM CHLORIDE 40 MEQ in SOD CHLORIDE 0.9% 1,000 ML IV ×2 (03:23→13:22)
[2017-12-10] MEDS ORDERED: DEXTROSE 50% 50 ML SYRINGE IV ×5 (03:30→18:00)
[2017-12-10] MEDS: morphine 4 MG/ML VIAL IV (04:14)
[2017-12-10] MEDS: POTASSIUM CHLORIDE 30 MEQ in SOD CHLORIDE 0.9% 1,000 ML IV (04:52)
[2017-12-10] MEDS: SODIUM CHLORIDE 23.4% 77 MEQ, POTASSIUM CHLORIDE 30 MEQ in DEXTROSE 10% 1,000 ML IV ×2 (04:53→13:53)
[2017-12-10] MEDS ORDERED: LORAZEPAM 2 MG INJ IV (05:00)
[2017-12-10 05:18] LABS: MODE ROOM AIR; MetHgb Venous 0.2 %; Sample Type Blood venous; Site VENOUS LINE; Venous COHb 0.5 %; Venous Fraction OxyHgb 88.8 %; Venous Oxygen Sat 89.4 mmHG (55.0-75.0); Venous Total Hemglobin 13.8 g/dl
[2017-12-10] MEDS ORDERED: ONDANSETRON 4 MG INJ IV (05:30)
[2017-12-10] MEDS: LACTATED RINGER S IV (05:43)
[2017-12-10 05:48] LABS: HEMOGLOBIN A1C 9.4 % (0-5.9)
[2017-12-10 05:58] LABS: ANION GAP 27 (8-16); BLOOD UREA NITROGEN 9 mg/dl (7-20); CARBON DIOXIDE 11 mmol/L (21-31); CHLORIDE 104 mmol/L (97-110); CREATININE 0.85 mg/dl (0.61-1.24); GLUCOSE 339 mg/dl (70-220); MAGNESIUM 1.8 mg/dl (1.7-2.5); PHOSPHORUS 3.5 mg/dl (2.5-4.9); SODIUM 136 mmol/L (135-144)
[2017-12-10 06:14] LABS: POTASSIUM 6.4 mmol/L (3.5-5.1)
[2017-12-10 06:54] LABS: ETHANOL < 10.0 mg/dl
[2017-12-10] MEDS ORDERED: INSULIN LISPRO 100 UNIT/ML VIAL SC (07:00)
[2017-12-10] MEDS: INSULIN REGULAR, HUMAN 100 UNIT in SOD CHLORIDE 0.9% 100 ML IV ×2 (07:21→14:51)
[2017-12-10] MEDS: ALBUTEROL/IPRATROPIUM (NEB) 3 ML AMP NEB (07:22)
[2017-12-10 07:25] LABS: AADO2 Venous 55.6 mmHg; MODE ROOM AIR; MetHgb Venous 0.3 %; Sample Type Blood venous; Site VENOUS LINE; Venous COHb 0.5 %; Venous Fraction OxyHgb 85.6 %; Venous Oxygen Sat 86.3 mmHG (55.0-75.0); Venous Total Hemglobin 13.7 g/dl
[2017-12-10] MEDS: INSULIN REGULAR, HUMAN 100 UNIT/1 ML 3ML VIAL SC (07:27)
[2017-12-10] MEDS: SODIUM CHLORIDE 23.4% 77 MEQ in DEXTROSE 10% 1,000 ML IV (08:03)
[2017-12-10] MEDS: morphine 2 MG INJ IV ×3 (08:17→21:53)
[2017-12-10 08:26] LABS: ANION GAP 18 (8-16); BLOOD UREA NITROGEN 7 mg/dl (7-20); CALCIUM 6.4 mg/dl (8.4-10.2); CARBON DIOXIDE 10 mmol/L (21-31); CHLORIDE 114 mmol/L (97-110); CREATININE 0.63 mg/dl (0.61-1.24); GLUCOSE 241 mg/dl (70-220); MAGNESIUM 1.3 mg/dl (1.7-2.5); PHOSPHORUS 2.4 mg/dl (2.5-4.9); POTASSIUM 4.6 mmol/L (3.5-5.1); SODIUM 137 mmol/L (135-144)
[2017-12-10] MEDS: MULTIVITAMINS 10 ML, THIAMINE 100 MG, FOLIC ACID 1 MG in SOD CHLORIDE 0.9% 1,000 ML IVPB (09:00)
[2017-12-10] MEDS: FOLIC ACID 1 MG TAB PO (09:00)
[2017-12-10] MEDS: NICOTINE (14 MG/24 HR) PATCH TRANSDERM (09:00)
[2017-12-10] MEDS: MAGNESIUM SULFATE 3 GM in DEXTROSE 5% 100 ML IVPB (11:27)
[2017-12-10] MEDS: CALCIUM GLUCONATE 10% 1 GM in DEXTROSE 5% 100 ML IVPB (11:27)
[2017-12-10 12:21] LABS: AADO2 Venous 58.5 mmHg; MODE ROOM AIR; MetHgb Venous 0.1 %; Sample Type Blood venous; Site VENOUS LINE; Venous COHb 0.4 %; Venous Fraction OxyHgb 81.9 %; Venous Oxygen Sat 82.3 mmHG (55.0-75.0); Venous Total Hemglobin 13.4 g/dl
[2017-12-10 12:56] LABS: ANION GAP 15 (8-16); BLOOD UREA NITROGEN 8 mg/dl (7-20); CALCIUM 8.9 mg/dl (8.4-10.2); CARBON DIOXIDE 20 mmol/L (21-31); CHLORIDE 108 mmol/L (97-110); CREATININE 0.72 mg/dl (0.61-1.24); GLUCOSE 105 mg/dl (70-220); PHOSPHORUS 1.9 mg/dl (2.5-4.9); POTASSIUM 4.5 mmol/L (3.5-5.1); SODIUM 138 mmol/L (135-144)
[2017-12-10] MEDS ORDERED: SOD CHLORIDE 0.9% 1,000 ML IV (13:22)
[2017-12-10] MEDS ORDERED: SODIUM CHLORIDE 23.4% 77 MEQ in DEXTROSE 10% 1,000 ML IV (13:22)
[2017-12-10] MEDS ORDERED: POTASSIUM CHLORIDE 30 MEQ in SOD CHLORIDE 0.9% 1,000 ML IV (13:22)
[2017-12-10] MEDS: ACCU-CHEK XX ×10 (14:00→23:00)
[2017-12-10 15:36] LABS: ANION GAP 11 (8-16); BLOOD UREA NITROGEN 7 mg/dl (7-20); CALCIUM 8.9 mg/dl (8.4-10.2); CARBON DIOXIDE 23 mmol/L (21-31); CHLORIDE 107 mmol/L (97-110); CREATININE 0.73 mg/dl (0.61-1.24); GLUCOSE 76 mg/dl (70-220); MAGNESIUM 2.8 mg/dl (1.7-2.5); PHOSPHORUS 1.6 mg/dl (2.5-4.9); POTASSIUM 3.9 mmol/L (3.5-5.1); SODIUM 137 mmol/L (135-144)
[2017-12-10] MEDS ORDERED: GLUCOSE GEL 15 GRAM TUBE BUCCAL (18:00)
[2017-12-10] MEDS ORDERED: GLUCOSE GEL 15 GRAM TUBE PO ×2 (18:00)
[2017-12-10] MEDS ORDERED: GLUCAGON 1 MG INJ IM (18:00)
[2017-12-10] MEDS: INSULIN GLARGINE [LANTus] (100 UNITS/ML) SYG SC (18:48)
[2017-12-10] MEDS: DOCUSATE SODIUM 100 MG CAP PO (18:55)
[2017-12-10] MEDS: INSULIN ASPART [NOVOLOG] 3 ML PEN SC ×2 (19:22→20:15)
[2017-12-10] MEDS: ACETAMINOPHEN 650MG/20.3ML CUP PO (20:25)
[2017-12-11] MEDS: ACCU-CHEK XX (02:00)
[2017-12-11] MEDS: HYDROCODONE/APAP (10/325) TAB PO ×2 (02:17→18:11)
[2017-12-11] MEDS: PANTOPRAZOLE 40 MG INJ IV (05:18)
[2017-12-11 06:03] LABS: ANION GAP 13 (8-16); BLOOD UREA NITROGEN 5 mg/dl (7-20); CALCIUM 8.8 mg/dl (8.4-10.2); CARBON DIOXIDE 21 mmol/L (21-31); CHLORIDE 107 mmol/L (97-110); CREATININE 0.67 mg/dl (0.61-1.24); GLUCOSE 156 mg/dl (70-220); MAGNESIUM 1.8 mg/dl (1.7-2.5); PHOSPHORUS 3.4 mg/dl (2.5-4.9); POTASSIUM 4.1 mmol/L (3.5-5.1); SODIUM 137 mmol/L (135-144)
[2017-12-11] MEDS: INSULIN ASPART [NOVOLOG] 3 ML PEN SC ×7 (07:05→20:58)
[2017-12-11] MEDS: FOLIC ACID 1 MG TAB PO (09:00)
[2017-12-11] MEDS: NICOTINE (14 MG/24 HR) PATCH TRANSDERM (09:00)
[2017-12-11] MEDS: MULTIVITAMINS 10 ML, THIAMINE 100 MG, FOLIC ACID 1 MG in SOD CHLORIDE 0.9% 1,000 ML IVPB (09:00)
[2017-12-11] MEDS ORDERED: BISACODYL (EC) 5 MG TAB PO (10:00)
[2017-12-11] MEDS: LIDOCAINE/MYLANTA 40 ML BTL PO (10:30)
[2017-12-11] MEDS: POLYETHYLENE GLYCOL 17 GM PACKET PO (20:50)
[2017-12-11] MEDS: INSULIN GLARGINE [LANTus] (100 UNITS/ML) SYG SC (20:51)
[2017-12-11] MEDS ORDERED: INSULIN GLARGINE [LANTus] (100 UNITS/ML) SYG SC (21:00)
[2017-12-12] MEDS: HYDROCODONE/APAP (10/325) TAB PO ×4 (00:23→20:39)
[2017-12-12] MEDS: ACCU-CHEK XX (01:21)
[2017-12-12 04:53] LABS: ADD MAN DIFF? NO
[2017-12-12 04:57] LABS: BASOPHILS % 0.3 % (0.0-2.0); EOSINOPHILS # 0.2 10^3/ul (0.0-0.5); EOSINOPHILS % 5.4 % (0.0-7.0); HEMATOCRIT 40.4 % (42.0-52.0); HEMOGLOBIN 13.9 g/dl (14.0-18.0); LYMPHOCYTES # 1.2 10^3/ul (0.8-2.9); MEAN CORPUSCULAR HEMOGLOBIN 32.1 pg (29.0-33.0); MEAN CORPUSCULAR HGB CONC 34.4 g/dl (32.0-37.0); MEAN CORPUSCULAR VOLUME 93.3 fl (82.0-101.0); MEAN PLATELET VOLUME 8.5 fl (7.4-10.4); MONOCYTE # 0.6 10^3/ul (0.3-0.9); MONOCYTES % 14.9 % (0.0-11.0); NEUTROPHIL # 1.9 10^3/ul (1.6-7.5); NEUTROPHILS % 48.1 % (39.0-77.0); PLATELET COUNT 195 10^3/UL (140-415); RED BLOOD COUNT 4.33 10^6/ul (4.70-6.10); RED CELL DISTRIBUTION WIDTH 13.4 % (11.5-14.5)
[2017-12-12 04:57] LABS: WHITE BLOOD COUNT 3.9 10^3/ul (4.8-10.8)
[2017-12-12 05:22] LABS: PHOSPHORUS 4.4 mg/dl (2.5-4.9)
[2017-12-12 05:22] LABS: MAGNESIUM 1.6 mg/dl (1.7-2.5)
[2017-12-12 05:26] LABS: ANION GAP 12 (8-16); BLOOD UREA NITROGEN 8 mg/dl (7-20); CALCIUM 9.3 mg/dl (8.4-10.2); CARBON DIOXIDE 26 mmol/L (21-31); CHLORIDE 103 mmol/L (97-110); CREATININE 0.78 mg/dl (0.61-1.24); GLUCOSE 176 mg/dl (70-220); POTASSIUM 3.6 mmol/L (3.5-5.1); SODIUM 137 mmol/L (135-144)
[2017-12-12] MEDS: PANTOPRAZOLE 40 MG INJ IV (07:05)
[2017-12-12] MEDS: MULTIVITAMINS 10 ML, THIAMINE 100 MG, FOLIC ACID 1 MG in SOD CHLORIDE 0.9% 1,000 ML IVPB (08:16)
[2017-12-12] MEDS: FOLIC ACID 1 MG TAB PO (08:17)
[2017-12-12] MEDS: POLYETHYLENE GLYCOL 17 GM PACKET PO ×2 (08:17→20:39)
[2017-12-12] MEDS: INSULIN ASPART [NOVOLOG] 3 ML PEN SC ×7 (08:30→20:45)
[2017-12-12] MEDS: BISACODYL (EC) 5 MG TAB PO (08:59)
[2017-12-12] MEDS: NICOTINE (14 MG/24 HR) PATCH TRANSDERM (09:00)
[2017-12-12] MEDS: MAGNESIUM SULFATE 2 GM/50 ML 50 ML IVPB (09:00)
[2017-12-12] MEDS: DEXTROSE 50% 50 ML SYRINGE IV (12:43)
[2017-12-12] MEDS ORDERED: morphine LIQ (10 MG/5 ML) CUP PO (14:00)
[2017-12-12] MEDS: INSULIN GLARGINE [LANTus] (100 UNITS/ML) SYG SC (20:42)
[2017-12-13] MEDS: ACCU-CHEK XX (02:00)
[2017-12-13] MEDS: HYDROCODONE/APAP (10/325) TAB PO ×2 (03:13→09:26)
[2017-12-13] MEDS: PANTOPRAZOLE 40 MG INJ IV (05:52)
[2017-12-13 07:28] LABS: ADD MAN DIFF? NO
[2017-12-13] MEDS: INSULIN ASPART [NOVOLOG] 3 ML PEN SC ×4 (07:30→13:46)
[2017-12-13 07:37] LABS: WHITE BLOOD COUNT 3.9 10^3/ul (4.8-10.8)
[2017-12-13 07:37] LABS: BASOPHILS % 0.5 % (0.0-2.0); EOSINOPHILS # 0.2 10^3/ul (0.0-0.5); EOSINOPHILS % 4.9 % (0.0-7.0); HEMATOCRIT 40.2 % (42.0-52.0); HEMOGLOBIN 13.8 g/dl (14.0-18.0); LYMPHOCYTES # 1.2 10^3/ul (0.8-2.9); LYMPHOCYTES % 30.3 % (15.0-51.0); MEAN CORPUSCULAR HEMOGLOBIN 32.3 pg (29.0-33.0); MEAN CORPUSCULAR HGB CONC 34.3 g/dl (32.0-37.0); MEAN CORPUSCULAR VOLUME 94.1 fl (82.0-101.0); MEAN PLATELET VOLUME 8.6 fl (7.4-10.4); MONOCYTE # 0.7 10^3/ul (0.3-0.9); MONOCYTES % 17.9 % (0.0-11.0); NEUTROPHIL # 1.8 10^3/ul (1.6-7.5); NEUTROPHILS % 46.1 % (39.0-77.0); PLATELET COUNT 189 10^3/UL (140-415); RED BLOOD COUNT 4.27 10^6/ul (4.70-6.10); RED CELL DISTRIBUTION WIDTH 13.4 % (11.5-14.5)
[2017-12-13 07:54] LABS: MAGNESIUM 1.8 mg/dl (1.7-2.5)
[2017-12-13 07:54] LABS: PHOSPHORUS 4.9 mg/dl (2.5-4.9)
[2017-12-13 07:56] LABS: ANION GAP 12 (8-16); BLOOD UREA NITROGEN 12 mg/dl (7-20); CALCIUM 9.3 mg/dl (8.4-10.2); CARBON DIOXIDE 27 mmol/L (21-31); CHLORIDE 104 mmol/L (97-110); GLUCOSE 232 mg/dl (70-220); POTASSIUM 3.9 mmol/L (3.5-5.1); SODIUM 139 mmol/L (135-144)
[2017-12-13] MEDS: NICOTINE (14 MG/24 HR) PATCH TRANSDERM (09:00)
[2017-12-13] MEDS: FOLIC ACID 1 MG TAB PO (09:25)
[2017-12-13] MEDS: MULTIVITAMINS 10 ML, THIAMINE 100 MG, FOLIC ACID 1 MG in SOD CHLORIDE 0.9% 1,000 ML IVPB (09:25)
[2017-12-13] MEDS: POLYETHYLENE GLYCOL 17 GM PACKET PO (09:25)
[2017-12-13] MEDS: MAGNESIUM CITRATE 300 ML BTL PO (13:01)
== END 2017-12-13 17:26 | disposition home or self-care (01) | DRG 639 ==
LOC: FTE 22:27 → MS4 12-12 23:56 → ICU 12-10 05:08
PROVIDERS: Family Medicine
DX: E10.10 Type 1 diabetes mellitus with ketoacidosis without coma (principal); I11.0 Hypertensive heart disease with heart failure; I50.9 Heart failure, unspecified; F10.20 Alcohol dependence, uncomplicated; F17.200 Nicotine dependence, unspecified, uncomplicated; Y90.0 Blood alcohol level of less than 20 mg/100 ml
CPT/HCPCS: 36415; 80048; 80053; 80307; 82803; 82962; 83036; 83690; 83735; 84100; 85025; 94664; 96361; 96374; 96375; 96376; 99285-25

== ENCOUNTER → 2017-12-19 23:14 | Emergency (ER) | payer BC ==
[2017-12-19] MEDS: LACTATED RINGER'S 1,000 ML IV ×2 (19:31→20:49)
[2017-12-19 19:46] LABS: ADD MAN DIFF? NO
[2017-12-19 19:47] LABS: BASOPHIL # 0.1 10^3/ul (0.0-0.1); EOSINOPHILS # 0.2 10^3/ul (0.0-0.5); EOSINOPHILS % 3.4 % (0.0-7.0); HEMOGLOBIN 14.4 g/dl (14.0-18.0); LYMPHOCYTES # 2.3 10^3/ul (0.8-2.9); LYMPHOCYTES % 45.5 % (15.0-51.0); MEAN CORPUSCULAR HEMOGLOBIN 31.7 pg (29.0-33.0); MEAN CORPUSCULAR HGB CONC 34.3 g/dl (32.0-37.0); MEAN CORPUSCULAR VOLUME 92.5 fl (82.0-101.0); MEAN PLATELET VOLUME 7.9 fl (7.4-10.4); MONOCYTE # 0.4 10^3/ul (0.3-0.9); MONOCYTES % 8.5 % (0.0-11.0); NEUTROPHIL # 2.1 10^3/ul (1.6-7.5); NEUTROPHILS % 41.4 % (39.0-77.0); PLATELET COUNT 243 10^3/UL (140-415); RED BLOOD COUNT 4.54 10^6/ul (4.70-6.10); RED CELL DISTRIBUTION WIDTH 14.3 % (11.5-14.5)
[2017-12-19 20:07] LABS: ALANINE AMINOTRANSFERASE 60 IU/L (13-69); ALBUMIN 5.2 g/dl (3.3-4.9); ALBUMIN/GLOBULIN RATIO 1.36; ALKALINE PHOSPHATASE 105 IU/L (42-121); ANION GAP 22 (8-16); ASPARTATE AMINO TRANSFERASE 119 IU/L (15-46); BLOOD UREA NITROGEN 10 mg/dl (7-20); CALCIUM 10.1 mg/dl (8.4-10.2); CARBON DIOXIDE 27 mmol/L (21-31); CHLORIDE 99 mmol/L (97-110); CREATININE 0.87 mg/dl (0.61-1.24); GLUCOSE 72 mg/dl (70-220); PHOSPHORUS 4.7 mg/dl (2.5-4.9); SODIUM 144 mmol/L (135-144)
[2017-12-19] MEDS: morphine 2 MG INJ IV (20:49)
[2017-12-19 21:31] LABS: ADD UMIC YES; UR ASCORBIC ACID NEGATIVE (NEGATIVE); UR BILIRUBIN (Dip) NEGATIVE (NEGATIVE); UR BLOOD (Dip) NEGATIVE (NEGATIVE); UR CLARITY CLEAR (CLEAR); UR COLOR YELLOW (YELLOW); UR GLUCOSE (Dip) NEGATIVE (NEGATIVE); UR KETONES (Dip) 1+ mg/dL (NEGATIVE); UR LEUKOCYTE ESTERASE (Dip) NEGATIVE Leu/ul (NEGATIVE); UR NITRITE (Dip) NEGATIVE (NEGATIVE); UR RBC 0 /HPF (0-5); UR TOTAL PROTEIN (Dip) 1+ mg/dl (NEGATIVE); UR UROBILINOGEN (Dip) 1+ mg/dL (NEGATIVE); UR WBC 1 /HPF (0-5)
[2017-12-19] MEDS: IBUPROFEN 600 MG TAB PO (23:03)
== END | disposition home or self-care (01) ==
DX: R11.2 Nausea with vomiting, unspecified (principal); F17.210 Nicotine dependence, cigarettes, uncomplicated; J45.909 Unspecified asthma, uncomplicated; E10.9 Type 1 diabetes mellitus without complications; Z79.4 Long term (current) use of insulin
CPT/HCPCS: 36415; 80053; 81001; 82962; 83735; 84100; 85025; 96374; 99284-25

== ENCOUNTER 2017-12-23 17:33 | Emergency (ER) | payer BC ==
[2017-12-23 18:01] LABS: ADD MAN DIFF? NO
[2017-12-23 18:08] LABS: BASOPHILS % 0.8 % (0.0-2.0); EOSINOPHILS # 0.3 10^3/ul (0.0-0.5); HEMATOCRIT 41.2 % (42.0-52.0); HEMOGLOBIN 14.7 g/dl (14.0-18.0); LYMPHOCYTES # 1.8 10^3/ul (0.8-2.9); LYMPHOCYTES % 35.3 % (15.0-51.0); MEAN CORPUSCULAR HGB CONC 35.7 g/dl (32.0-37.0); MEAN CORPUSCULAR VOLUME 92.4 fl (82.0-101.0); MEAN PLATELET VOLUME 8.1 fl (7.4-10.4); MONOCYTE # 0.5 10^3/ul (0.3-0.9); MONOCYTES % 9.4 % (0.0-11.0); NEUTROPHIL # 2.5 10^3/ul (1.6-7.5); NEUTROPHILS % 49.3 % (39.0-77.0); PLATELET COUNT 264 10^3/UL (140-415); RED BLOOD COUNT 4.46 10^6/ul (4.70-6.10); RED CELL DISTRIBUTION WIDTH 14.5 % (11.5-14.5)
[2017-12-23 18:29] LABS: ALANINE AMINOTRANSFERASE 76 IU/L (13-69); ALBUMIN 5.1 g/dl (3.3-4.9); ALKALINE PHOSPHATASE 133 IU/L (42-121); ASPARTATE AMINO TRANSFERASE 262 IU/L (15-46); BILIRUBIN,INDIRECT 0.7 mg/dl (0-1.1); BILIRUBIN,TOTAL 0.7 mg/dl (0.2-1.3); LIPASE 179 U/L (23-300); TOTAL PROTEIN 9.3 g/dl (6.1-8.1)
[2017-12-23] MEDS: ONDANSETRON 4 MG INJ IV (18:32)
[2017-12-23] MEDS: SOD CHLORIDE 0.9% 1,000 ML IV (18:32)
[2017-12-23] MEDS: LIDOCAINE/MYLANTA 40 ML BTL PO (18:32)
[2017-12-23 19:09] LABS: ANION GAP 23 (8-16)
[2017-12-23 19:10] LABS: BLOOD UREA NITROGEN 12 mg/dl (7-20); CALCIUM 9.8 mg/dl (8.4-10.2); CARBON DIOXIDE 22 mmol/L (21-31); CHLORIDE 102 mmol/L (97-110); CREATININE 1.07 mg/dl (0.61-1.24); GLUCOSE 181 mg/dl (70-220); POTASSIUM 3.9 mmol/L (3.5-5.1); SODIUM 143 mmol/L (135-144)
[2017-12-23 19:21] LABS: TROPONIN-I < 0.010 ng/ml (0.000-0.120)
== END 2017-12-24 05:34 | disposition home or self-care (01) ==
LOC: E/R 12-24 05:34
DX: F10.129 Alcohol abuse with intoxication, unspecified (principal); E11.9 Type 2 diabetes mellitus without complications; Z79.4 Long term (current) use of insulin
CPT/HCPCS: 36415; 71045; 80048; 80076; 80307; 83690; 84484; 85025; 93005; 96374; 99285-25

== ENCOUNTER 2018-01-01 11:18 | Inpatient (IN) | payer BC ==
[2018-01-01 12:30] LABS: ADD MAN DIFF? NO
[2018-01-01] MEDS: ONDANSETRON 4 MG INJ IV ×2 (12:38→14:16)
[2018-01-01] MEDS: morphine 4 MG/ML VIAL IV (12:38)
[2018-01-01] MEDS: SOD CHLORIDE 0.9% 1,000 ML IV (12:39)
[2018-01-01 12:40] LABS: BASOPHILS % 1.1 % (0.0-2.0); EOSINOPHILS # 0.1 10^3/ul (0.0-0.5); EOSINOPHILS % 3.7 % (0.0-7.0); HEMATOCRIT 39.7 % (42.0-52.0); HEMOGLOBIN 13.6 g/dl (14.0-18.0); LYMPHOCYTES # 1.1 10^3/ul (0.8-2.9); LYMPHOCYTES % 31.8 % (15.0-51.0); MEAN CORPUSCULAR HGB CONC 34.3 g/dl (32.0-37.0); MEAN CORPUSCULAR VOLUME 96.4 fl (82.0-101.0); MEAN PLATELET VOLUME 8.1 fl (7.4-10.4); MONOCYTE # 0.3 10^3/ul (0.3-0.9); MONOCYTES % 7.9 % (0.0-11.0); NEUTROPHILS % 54.9 % (39.0-77.0); PLATELET COUNT 224 10^3/UL (140-415); RED BLOOD COUNT 4.12 10^6/ul (4.70-6.10); RED CELL DISTRIBUTION WIDTH 14.8 % (11.5-14.5)
[2018-01-01 12:40] LABS: WHITE BLOOD COUNT 3.6 10^3/ul (4.8-10.8)
[2018-01-01 12:48] LABS: INR 0.93; PROTIME 12.6 Sec (11.9-14.9)
[2018-01-01 12:51] LABS: ALANINE AMINOTRANSFERASE 79 IU/L (13-69); ALBUMIN 4.5 g/dl (3.3-4.9); ALBUMIN/GLOBULIN RATIO 1.25; ALKALINE PHOSPHATASE 118 IU/L (42-121); AMYLASE 164 U/L (11-123); ANION GAP 26 (8-16); ASPARTATE AMINO TRANSFERASE 126 IU/L (15-46); BILIRUBIN,INDIRECT 0.6 mg/dl (0-1.1); BILIRUBIN,TOTAL 0.6 mg/dl (0.2-1.3); BLOOD UREA NITROGEN 8 mg/dl (7-20); CALCIUM 8.9 mg/dl (8.4-10.2); CARBON DIOXIDE 21 mmol/L (21-31); CHLORIDE 104 mmol/L (97-110); CREATININE 0.85 mg/dl (0.61-1.24); GLUCOSE 319 mg/dl (70-220); LIPASE 178 U/L (23-300); POTASSIUM 4.2 mmol/L (3.5-5.1); SODIUM 147 mmol/L (135-144); TOTAL PROTEIN 8.1 g/dl (6.1-8.1)
[2018-01-01 12:55] LABS: ACETAMINOPHEN < 10.0 ug/ml (10.0-30.0); SALICYLATE < 1.0 mg/dl (5.0-30.0)
[2018-01-01 13:01] LABS: TROPONIN-I < 0.010 ng/ml (0.000-0.120)
[2018-01-01 13:02] LABS: LACTIC ACID 5.1 mmol/L (0.5-2.0)
[2018-01-01] MEDS ORDERED: SOD CHLORIDE 0.9% 1,000 ML IV (13:20)
[2018-01-01] MEDS ORDERED: SODIUM CHLORIDE 23.4% 77 MEQ in DEXTROSE 10% 1,000 ML IV (13:20)
[2018-01-01] MEDS ORDERED: SODIUM CHLORIDE 23.4% 77 MEQ, POTASSIUM CHLORIDE 40 MEQ in DEXTROSE 10% 1,000 ML IV (13:20)
[2018-01-01] MEDS ORDERED: POTASSIUM CHLORIDE 40 MEQ in SOD CHLORIDE 0.9% 1,000 ML IV (13:20)
[2018-01-01] MEDS: IOHEXOL 300MG/ML 150 ML BTL (13:24)
[2018-01-01] MEDS: SOD CHLORIDE 0.9% 100 ML (13:24)
[2018-01-01] MEDS ORDERED: DEXTROSE 50% 50 ML SYRINGE IV (13:30)
[2018-01-01] MEDS: SODIUM CHLORIDE 0.9% 1L BAG IV* (13:58)
[2018-01-01] MEDS: HYDROmorphONE 1 MG/ML SYG IV (14:16)
[2018-01-01 14:17] LABS: ADD UMIC NO; UR ASCORBIC ACID NEGATIVE (NEGATIVE); UR BILIRUBIN (Dip) NEGATIVE (NEGATIVE); UR BLOOD (Dip) NEGATIVE (NEGATIVE); UR CLARITY CLEAR (CLEAR); UR COLOR STRAW (YELLOW); UR GLUCOSE (Dip) 3+ mg/dL (NEGATIVE); UR KETONES (Dip) 2+ mg/dL (NEGATIVE); UR LEUKOCYTE ESTERASE (Dip) NEGATIVE Leu/ul (NEGATIVE); UR NITRITE (Dip) NEGATIVE (NEGATIVE); UR SPECIFIC GRAVITY (Dip) 1.025 (1.003-1.030); UR TOTAL PROTEIN (Dip) NEGATIVE (NEGATIVE); UR UROBILINOGEN (Dip) NEGATIVE (NEGATIVE)
[2018-01-01] MEDS: CEFEPIME 2GM/50 ML (PMX) 50 ML IVPB (14:17)
[2018-01-01 14:30] LABS: AMPHETAMINE/METHAMPHETAMINE Negative (NEGATIVE); BARBITURATES Negative (NEGATIVE); BENZODIAZEPINES Negative (NEGATIVE); CANNABINOIDS Negative (NEGATIVE); COCAINE Negative (NEGATIVE); OPIATES Positive (NEGATIVE)
[2018-01-01] MEDS: LACTATED RINGER'S 740 ML IV (14:30)
[2018-01-01 14:55] LABS: MODE ROOM AIR; MetHgb Venous 0.4 %; Sample Type Blood venous; Site VENOUS LINE; Venous COHb 0.4 %; Venous Fraction OxyHgb 87.8 %; Venous Oxygen Sat 88.5 mmHG (55.0-75.0); Venous Total Hemglobin 13.7 g/dl
[2018-01-01] MEDS: MAGNESIUM SULFATE 2 GM, MULTIVITAMINS 10 ML, THIAMINE 100 MG, FOLIC ACID 1 MG in SOD CH... IV (15:12)
[2018-01-01] MEDS: INSULIN REGULAR, HUMAN 100 UNIT in SOD CHLORIDE 0.9% 100 ML IV (15:42)
[2018-01-01] MEDS: POTASSIUM CHLORIDE 30 MEQ in SOD CHLORIDE 0.9% 1,000 ML IV (15:57)
[2018-01-01 16:10] LABS: ANION GAP 19 (8-16); BLOOD UREA NITROGEN 6 mg/dl (7-20); CALCIUM 7.3 mg/dl (8.4-10.2); CARBON DIOXIDE 21 mmol/L (21-31); CHLORIDE 109 mmol/L (97-110); CREATININE 0.75 mg/dl (0.61-1.24); GLUCOSE 278 mg/dl (70-220); MAGNESIUM 1.7 mg/dl (1.7-2.5); PHOSPHORUS 2.8 mg/dl (2.5-4.9); POTASSIUM 4.4 mmol/L (3.5-5.1); SODIUM 145 mmol/L (135-144)
[2018-01-01] MEDS: SODIUM CHLORIDE 23.4% 77 MEQ, POTASSIUM CHLORIDE 30 MEQ in DEXTROSE 10% 1,000 ML IV ×2 (16:13→21:04)
[2018-01-01 16:15] LABS: LACTIC ACID 3.3 mmol/L (0.5-2.0)
[2018-01-01] MEDS ORDERED: DOCUSATE SODIUM 100 MG CAP PO (17:00)
[2018-01-01] MEDS ORDERED: ONDANSETRON 4 MG INJ IV (17:00)
[2018-01-01] MEDS ORDERED: NACL 0.9% 3 ML SYG IV (17:00)
[2018-01-01] MEDS ORDERED: MAGNESIUM HYDROXIDE 30ML CUP PO (17:00)
[2018-01-01] MEDS: morphine 2 MG INJ IV ×2 (17:49→21:41)
[2018-01-01] MEDS: VANCOMYCIN 1 GM (PMX) 250 ML IVPB (17:50)
[2018-01-01 17:54] LABS: MODE ROOM AIR; MetHgb Venous 0.4 %; Sample Type Blood venous; Site VENOUS LINE; Venous COHb 0.6 %; Venous Oxygen Sat 87.9 mmHG (55.0-75.0); Venous Total Hemglobin 13.8 g/dl
[2018-01-01 18:15] LABS: ANION GAP 20 (8-16); BLOOD UREA NITROGEN 5 mg/dl (7-20); CALCIUM 7.8 mg/dl (8.4-10.2); CARBON DIOXIDE 20 mmol/L (21-31); CHLORIDE 109 mmol/L (97-110); CREATININE 0.75 mg/dl (0.61-1.24); GLUCOSE 197 mg/dl (70-220); MAGNESIUM 1.8 mg/dl (1.7-2.5); POTASSIUM 3.9 mmol/L (3.5-5.1); SODIUM 145 mmol/L (135-144)
[2018-01-01 18:18] LABS: LACTIC ACID 5.2 mmol/L (0.5-2.0)
[2018-01-01 20:44] LABS: ANION GAP 18 (8-16); BLOOD UREA NITROGEN 4 mg/dl (7-20); CARBON DIOXIDE 23 mmol/L (21-31); CHLORIDE 106 mmol/L (97-110); CREATININE 0.72 mg/dl (0.61-1.24); GLUCOSE 142 mg/dl (70-220); MAGNESIUM 1.7 mg/dl (1.7-2.5); PHOSPHORUS 1.3 mg/dl (2.5-4.9); POTASSIUM 4.3 mmol/L (3.5-5.1); SODIUM 143 mmol/L (135-144)
[2018-01-01] MEDS: MAGNESIUM SULFATE 2 GM/50 ML 50 ML IVPB (21:36)
[2018-01-01] MEDS: DEXTROSE 50% 50 ML SYRINGE IV (22:12)
[2018-01-02] MEDS: SODIUM PHOSPHATE 30 MMOL in SOD CHLORIDE 0.9% 250 ML IVPB (00:16)
[2018-01-02 00:46] LABS: MODE ROOM AIR; MetHgb Venous 0.2 %; Sample Type Blood venous; Site VENOUS LINE; Venous Total Hemglobin 13.8 g/dl
[2018-01-02 01:22] LABS: ANION GAP 18 (8-16); BLOOD UREA NITROGEN 3 mg/dl (7-20); CALCIUM 8.1 mg/dl (8.4-10.2); CARBON DIOXIDE 26 mmol/L (21-31); CHLORIDE 102 mmol/L (97-110); CREATININE 0.73 mg/dl (0.61-1.24); GLUCOSE 89 mg/dl (70-220); MAGNESIUM 2.8 mg/dl (1.7-2.5); POTASSIUM 3.7 mmol/L (3.5-5.1); SODIUM 142 mmol/L (135-144)
[2018-01-02] MEDS: morphine 2 MG INJ IV ×3 (01:43→09:59)
[2018-01-02] MEDS: SODIUM CHLORIDE 23.4% 77 MEQ, POTASSIUM CHLORIDE 30 MEQ in DEXTROSE 10% 1,000 ML IV ×2 (01:44→05:47)
[2018-01-02] MEDS: DEXTROSE 50% 50 ML SYRINGE IV (01:49)
[2018-01-02] MEDS: LORAZEPAM 2 MG INJ IV (02:46)
[2018-01-02 05:39] LABS: MODE ROOM AIR; MetHgb Venous 0.3 %; Sample Type Blood venous; Site VENOUS LINE; Venous COHb 0.4 %; Venous Fraction OxyHgb 77.9 %; Venous Oxygen Sat 78.4 mmHG (55.0-75.0); Venous Total Hemglobin 13.3 g/dl
[2018-01-02 05:44] LABS: ADD MAN DIFF? NO
[2018-01-02 05:50] LABS: BASOPHILS % 0.3 % (0.0-2.0); EOSINOPHILS # 0.1 10^3/ul (0.0-0.5); EOSINOPHILS % 4.2 % (0.0-7.0); HEMATOCRIT 35.2 % (42.0-52.0); LYMPHOCYTES # 0.7 10^3/ul (0.8-2.9); LYMPHOCYTES % 23.3 % (15.0-51.0); MEAN CORPUSCULAR HEMOGLOBIN 32.5 pg (29.0-33.0); MEAN CORPUSCULAR HGB CONC 34.1 g/dl (32.0-37.0); MEAN CORPUSCULAR VOLUME 95.4 fl (82.0-101.0); MEAN PLATELET VOLUME 7.9 fl (7.4-10.4); MONOCYTE # 0.4 10^3/ul (0.3-0.9); MONOCYTES % 15.3 % (0.0-11.0); NEUTROPHIL # 1.6 10^3/ul (1.6-7.5); NEUTROPHILS % 56.6 % (39.0-77.0); PLATELET COUNT 157 10^3/UL (140-415); RED BLOOD COUNT 3.69 10^6/ul (4.70-6.10); RED CELL DISTRIBUTION WIDTH 14.5 % (11.5-14.5)
[2018-01-02 05:50] LABS: WHITE BLOOD COUNT 2.9 10^3/ul (4.8-10.8)
[2018-01-02 06:11] LABS: ANION GAP 14 (8-16); CALCIUM 7.5 mg/dl (8.4-10.2); CARBON DIOXIDE 29 mmol/L (21-31); CHLORIDE 98 mmol/L (97-110); GLUCOSE 162 mg/dl (70-220); MAGNESIUM 1.7 mg/dl (1.7-2.5); PHOSPHORUS 6.7 mg/dl (2.5-4.9); POTASSIUM 3.5 mmol/L (3.5-5.1); SODIUM 137 mmol/L (135-144)
[2018-01-02 06:12] LABS: BLOOD UREA NITROGEN < 2 mg/dl (7-20)
[2018-01-02] MEDS: HYDROCODONE/APAP (5/325) TAB PO (08:54)
[2018-01-02] MEDS: INSULIN GLARGINE [LANTus] (100 UNITS/ML) SYG SC (08:59)
[2018-01-02] MEDS: MULTIVITAMINS 10 ML, THIAMINE 100 MG, FOLIC ACID 1 MG in SOD CHLORIDE 0.9% 1,000 ML IVPB (10:05)
[2018-01-02] MEDS: INSULIN REGULAR, HUMAN 100 UNIT in SOD CHLORIDE 0.9% 100 ML IV (10:05)
[2018-01-02] MEDS: POTASSIUM CHLORIDE 30 MEQ in SOD CHLORIDE 0.9% 1,000 ML IV (10:37)
[2018-01-02 10:49] LABS: MODE ROOM AIR; MetHgb Venous 0.2 %; Sample Type Blood venous; Site VENOUS LINE; Venous COHb 1.1 %; Venous Fraction OxyHgb 60.6 %; Venous Oxygen Sat 61.4 mmHG (55.0-75.0)
[2018-01-02 11:21] LABS: ANION GAP 16 (8-16); BLOOD UREA NITROGEN 2 mg/dl (7-20); CALCIUM 7.7 mg/dl (8.4-10.2); CARBON DIOXIDE 27 mmol/L (21-31); CHLORIDE 101 mmol/L (97-110); CREATININE 0.62 mg/dl (0.61-1.24); GLUCOSE 106 mg/dl (70-220); MAGNESIUM 1.8 mg/dl (1.7-2.5); PHOSPHORUS 3.7 mg/dl (2.5-4.9); POTASSIUM 3.8 mmol/L (3.5-5.1); SODIUM 140 mmol/L (135-144)
[2018-01-02] MEDS: SUCRALFATE 1 GM TAB PO ×3 (14:13→20:10)
[2018-01-02] MEDS: MAGNESIUM SULFATE 2 GM/50 ML 50 ML IVPB (14:16)
[2018-01-02] MEDS: traMADol 50 MG TAB PO ×2 (14:56→21:11)
[2018-01-02] MEDS: ACETAMINOPHEN 325 MG TAB PO (16:54)
[2018-01-02] MEDS ORDERED: INSULIN ASPART [NOVOLOG] 3 ML PEN SC (17:35)
[2018-01-02] MEDS: INSULIN ASPART [NOVOLOG] 3 ML PEN SC (17:51)
[2018-01-02] MEDS: ZOLPIDEM 5 MG TAB PO (23:03)
[2018-01-03] MEDS: PANTOPRAZOLE (EC) 40 MG TAB PO (06:05)
[2018-01-03] MEDS: traMADol 50 MG TAB PO (06:05)
[2018-01-03] MEDS: INSULIN ASPART [NOVOLOG] 3 ML PEN SC ×2 (08:52→12:24)
[2018-01-03] MEDS: INSULIN GLARGINE [LANTus] (100 UNITS/ML) SYG SC (08:53)
[2018-01-03] MEDS: MULTIVITAMINS 10 ML, THIAMINE 100 MG, FOLIC ACID 1 MG in SOD CHLORIDE 0.9% 1,000 ML IVPB (08:53)
[2018-01-03] MEDS: SUCRALFATE 1 GM TAB PO ×2 (08:54→12:18)
[2018-01-03] MEDS: SENNA TAB PO (12:18)
[2018-01-03] MEDS: DOCUSATE SODIUM 100 MG CAP PO (12:18)
[2018-01-03] MEDS: MAGNESIUM HYDROXIDE 30ML CUP PO (12:18)
== END 2018-01-03 17:25 | disposition home or self-care (01) | DRG 639 ==
LOC: E/R 11:18 → PP2 01-02 16:30 → ICU 13:37
PROVIDERS: Internal Medicine
DX: E10.10 Type 1 diabetes mellitus with ketoacidosis without coma (principal); I50.9 Heart failure, unspecified; F10.229 Alcohol dependence with intoxication, unspecified; Y90.8 Blood alcohol level of 240 mg/100 ml or more; F17.200 Nicotine dependence, unspecified, uncomplicated; J45.909 Unspecified asthma, uncomplicated; K29.70 Gastritis, unspecified, without bleeding; E86.0 Dehydration; K59.00 Constipation, unspecified; Z79.4 Long term (current) use of insulin
CPT/HCPCS: 36415; 71045; 74177; 80048; 80053; 80307; 81003; 82150; 82803; 82962; 83036; 83605; 83690; 83735; 84100; 84484; 85025; 85610; 85730; 87040; 87081; 87086; 93005; 96374; 96375; 99291-25

== ENCOUNTER 2018-01-11 16:32 | Emergency (ER) | payer BC ==
[2018-01-11] MEDS: ONDANSETRON 4 MG INJ IV (16:44)
[2018-01-11] MEDS: SOD CHLORIDE 0.9% 1,000 ML IV (16:44)
[2018-01-11 17:00] LABS: ADD MAN DIFF? NO
[2018-01-11 17:06] LABS: BASOPHILS % 0.8 % (0.0-2.0); EOSINOPHILS # 0.1 10^3/ul (0.0-0.5); HEMOGLOBIN 12.9 g/dl (14.0-18.0); LYMPHOCYTES # 1.8 10^3/ul (0.8-2.9); LYMPHOCYTES % 48.1 % (15.0-51.0); MEAN CORPUSCULAR HEMOGLOBIN 33.8 pg (29.0-33.0); MEAN CORPUSCULAR HGB CONC 34.9 g/dl (32.0-37.0); MEAN CORPUSCULAR VOLUME 96.9 fl (82.0-101.0); MEAN PLATELET VOLUME 8.3 fl (7.4-10.4); MONOCYTE # 0.3 10^3/ul (0.3-0.9); MONOCYTES % 8.5 % (0.0-11.0); NEUTROPHIL # 1.4 10^3/ul (1.6-7.5); NEUTROPHILS % 39.3 % (39.0-77.0); PLATELET COUNT 309 10^3/UL (140-415); RED BLOOD COUNT 3.82 10^6/ul (4.70-6.10); RED CELL DISTRIBUTION WIDTH 14.3 % (11.5-14.5)
[2018-01-11 17:06] LABS: WHITE BLOOD COUNT 3.7 10^3/ul (4.8-10.8)
[2018-01-11 17:14] LABS: ADD UMIC NO; UR ASCORBIC ACID NEGATIVE (NEGATIVE); UR BILIRUBIN (Dip) NEGATIVE (NEGATIVE); UR BLOOD (Dip) NEGATIVE (NEGATIVE); UR CLARITY CLEAR (CLEAR); UR COLOR COLORLESS (YELLOW); UR GLUCOSE (Dip) 3+ mg/dL (NEGATIVE); UR KETONES (Dip) TRACE mg/dL (NEGATIVE); UR LEUKOCYTE ESTERASE (Dip) NEGATIVE Leu/ul (NEGATIVE); UR NITRITE (Dip) NEGATIVE (NEGATIVE); UR SPECIFIC GRAVITY (Dip) 1.014 (1.003-1.030); UR TOTAL PROTEIN (Dip) NEGATIVE (NEGATIVE); UR UROBILINOGEN (Dip) NEGATIVE (NEGATIVE)
[2018-01-11 17:23] LABS: ALANINE AMINOTRANSFERASE 59 IU/L (13-69); ALBUMIN 4.4 g/dl (3.3-4.9); ALBUMIN/GLOBULIN RATIO 1.25; ALKALINE PHOSPHATASE 77 IU/L (42-121); ANION GAP 22 (8-16); ASPARTATE AMINO TRANSFERASE 155 IU/L (15-46); BILIRUBIN,INDIRECT 0.5 mg/dl (0-1.1); BILIRUBIN,TOTAL 0.5 mg/dl (0.2-1.3); BLOOD UREA NITROGEN 16 mg/dl (7-20); CALCIUM 9.3 mg/dl (8.4-10.2); CARBON DIOXIDE 21 mmol/L (21-31); CHLORIDE 106 mmol/L (97-110); CREATININE 0.89 mg/dl (0.61-1.24); GLUCOSE 347 mg/dl (70-220); LIPASE 241 U/L (23-300); POTASSIUM 4.1 mmol/L (3.5-5.1); SODIUM 145 mmol/L (135-144); TOTAL PROTEIN 7.9 g/dl (6.1-8.1)
[2018-01-11] MEDS: LACTATED RINGER'S 1,000 ML IV (18:35)
== END 2018-01-11 18:52 | disposition home or self-care (01) ==
LOC: E/R 16:32
DX: E11.65 Type 2 diabetes mellitus with hyperglycemia (principal); F17.210 Nicotine dependence, cigarettes, uncomplicated; Z79.4 Long term (current) use of insulin
CPT/HCPCS: 36415; 80053; 81003; 83690; 85025; 96374; 99284-25

== ENCOUNTER 2018-03-29 14:13 | Inpatient (IN) | payer BC ==
[2018-03-29 15:26] LABS: ADD MAN DIFF? NO
[2018-03-29] MEDS: ASPIRIN 325 MG TAB PO (15:26)
[2018-03-29] MEDS: LACTATED RINGER'S 1,000 ML IV (15:26)
[2018-03-29 15:27] LABS: BASOPHILS % 0.4 % (0.0-2.0); EOSINOPHILS % 0.2 % (0.0-7.0); HEMATOCRIT 43.8 % (42.0-52.0); HEMOGLOBIN 15.1 g/dl (14.0-18.0); LYMPHOCYTES # 1.3 10^3/ul (0.8-2.9); LYMPHOCYTES % 27.4 % (15.0-51.0); MEAN CORPUSCULAR HEMOGLOBIN 31.9 pg (29.0-33.0); MEAN CORPUSCULAR HGB CONC 34.5 g/dl (32.0-37.0); MEAN CORPUSCULAR VOLUME 92.4 fl (82.0-101.0); MEAN PLATELET VOLUME 8.3 fl (7.4-10.4); MONOCYTE # 0.3 10^3/ul (0.3-0.9); MONOCYTES % 6.1 % (0.0-11.0); NEUTROPHIL # 3.2 10^3/ul (1.6-7.5); NEUTROPHILS % 65.7 % (39.0-77.0); PLATELET COUNT 315 10^3/UL (140-415); RED BLOOD COUNT 4.74 10^6/ul (4.70-6.10); RED CELL DISTRIBUTION WIDTH 11.9 % (11.5-14.5)
[2018-03-29 15:27] LABS: WHITE BLOOD COUNT 4.9 10^3/ul (4.8-10.8)
[2018-03-29 15:46] LABS: ALANINE AMINOTRANSFERASE 32 IU/L (13-69); ALBUMIN 5.1 g/dl (3.3-4.9); ALBUMIN/GLOBULIN RATIO 1.21; ALKALINE PHOSPHATASE 108 IU/L (42-121); ANION GAP 25 (5-13); ASPARTATE AMINO TRANSFERASE 54 IU/L (15-46); BILIRUBIN,INDIRECT 0.6 mg/dl (0-1.1); BILIRUBIN,TOTAL 0.6 mg/dl (0.2-1.3); BLOOD UREA NITROGEN 11 mg/dl (7-20); CALCIUM 9.2 mg/dl (8.4-10.2); CARBON DIOXIDE 14 mmol/L (21-31); CHLORIDE 100 mmol/L (97-110); CREATININE 0.79 mg/dl (0.61-1.24); Estimated GFR > 60 mL/min (>60); GLUCOSE 305 mg/dl (70-220); LIPASE 110 U/L (23-300); POTASSIUM 4.5 mmol/L (3.5-5.1); SODIUM 139 mmol/L (135-144); TOTAL PROTEIN 9.3 g/dl (6.1-8.1)
[2018-03-29 16:07] LABS: TROPONIN-I < 0.012 ng/ml (0.000-0.120)
[2018-03-29] MEDS ORDERED: SOD CHLORIDE 0.9% 1,000 ML IV (17:04)
[2018-03-29] MEDS ORDERED: POTASSIUM CHLORIDE 40 MEQ in SOD CHLORIDE 0.9% 1,000 ML IV (17:04)
[2018-03-29] MEDS ORDERED: SODIUM CHLORIDE 23.4% 77 MEQ in DEXTROSE 10% 1,000 ML IV (17:04)
[2018-03-29] MEDS ORDERED: SODIUM CHLORIDE 23.4% 77 MEQ, POTASSIUM CHLORIDE 40 MEQ in DEXTROSE 10% 1,000 ML IV (17:04)
[2018-03-29] MEDS ORDERED: INSULIN REGULAR, HUMAN 100 UNIT in SOD CHLORIDE 0.9% 100 ML IV (17:30)
[2018-03-29] MEDS ORDERED: DEXTROSE 50% 50 ML SYRINGE IV ×2 (17:30)
[2018-03-29 17:35] LABS: MODE ROOM AIR; MetHgb Venous 0.4 %; Sample Type Blood venous; Site VENOUS LINE; Venous COHb 0.7 %; Venous Fraction OxyHgb 76.6 %; Venous Oxygen Sat 77.5 mmHG (55.0-75.0)
[2018-03-29] MEDS: KETOROLAC 15 MG INJ IV (17:37)
[2018-03-29] MEDS: FAMOTIDINE 20 MG INJ IV (17:38)
[2018-03-29 17:48] LABS: HEMOGLOBIN A1C 9.3 % (0-5.9)
[2018-03-29 18:03] LABS: ANION GAP 19 (5-13); BLOOD UREA NITROGEN 11 mg/dl (7-20); CALCIUM 8.7 mg/dl (8.4-10.2); CARBON DIOXIDE 17 mmol/L (21-31); CHLORIDE 102 mmol/L (97-110); Estimated GFR > 60 mL/min (>60); GLUCOSE 284 mg/dl (70-220); SODIUM 138 mmol/L (135-144)
[2018-03-29 18:04] LABS: PHOSPHORUS 3.5 mg/dl (2.5-4.9)
[2018-03-29 18:04] LABS: MAGNESIUM 1.8 mg/dl (1.7-2.5)
[2018-03-29 18:07] LABS: AMPHETAMINE/METHAMPHETAMINE Negative (NEGATIVE); BARBITURATES Negative (NEGATIVE); BENZODIAZEPINES Negative (NEGATIVE); CANNABINOIDS Negative (NEGATIVE); COCAINE Negative (NEGATIVE); OPIATES Negative (NEGATIVE)
[2018-03-29] MEDS: POTASSIUM CHLORIDE 30 MEQ in SOD CHLORIDE 0.9% 1,000 ML IV (18:29)
[2018-03-29] MEDS: SODIUM CHLORIDE 23.4% 77 MEQ, POTASSIUM CHLORIDE 30 MEQ in DEXTROSE 10% 1,000 ML IV (18:29)
[2018-03-29] MEDS ORDERED: DOCUSATE SODIUM 100 MG CAP PO (18:30)
[2018-03-29] MEDS ORDERED: ZOLPIDEM 5 MG TAB PO (18:30)
[2018-03-29] MEDS ORDERED: HYDROCODONE/APAP (5/325) TAB PO (18:30)
[2018-03-29] MEDS ORDERED: LORAZEPAM 2 MG INJ IV (18:30)
[2018-03-29] MEDS ORDERED: ACETAMINOPHEN 325 MG TAB PO (18:30)
[2018-03-29] MEDS ORDERED: NACL 0.9% 3 ML SYG IV (18:30)
[2018-03-29] MEDS: INSULIN REGULAR, HUMAN 100 UNIT in SOD CHLORIDE 0.9% 99 ML IV (19:13)
[2018-03-29] MEDS: morphine 2 MG INJ IV ×2 (19:38→23:52)
[2018-03-29 20:07] LABS: ANION GAP 20 (5-13); BLOOD UREA NITROGEN 11 mg/dl (7-20); CALCIUM 8.6 mg/dl (8.4-10.2); CARBON DIOXIDE 16 mmol/L (21-31); CHLORIDE 102 mmol/L (97-110); CREATININE 0.77 mg/dl (0.61-1.24); Estimated GFR > 60 mL/min (>60); GLUCOSE 338 mg/dl (70-220); MAGNESIUM 1.6 mg/dl (1.7-2.5); PHOSPHORUS 3.1 mg/dl (2.5-4.9); POTASSIUM 4.7 mmol/L (3.5-5.1); SODIUM 138 mmol/L (135-144)
[2018-03-29 22:26] LABS: ANION GAP 13 (5-13); BLOOD UREA NITROGEN 11 mg/dl (7-20); CALCIUM 8.5 mg/dl (8.4-10.2); CARBON DIOXIDE 19 mmol/L (21-31); CHLORIDE 104 mmol/L (97-110); Estimated GFR > 60 mL/min (>60); GLUCOSE 332 mg/dl (70-220); MAGNESIUM 1.9 mg/dl (1.7-2.5); PHOSPHORUS 1.1 mg/dl (2.5-4.9); POTASSIUM 4.4 mmol/L (3.5-5.1); SODIUM 136 mmol/L (135-144)
[2018-03-30 01:17] LABS: ANION GAP 15 (5-13); BLOOD UREA NITROGEN 10 mg/dl (7-20); CALCIUM 8.3 mg/dl (8.4-10.2); CARBON DIOXIDE 21 mmol/L (21-31); CHLORIDE 104 mmol/L (97-110); CREATININE 0.87 mg/dl (0.61-1.24); Estimated GFR > 60 mL/min (>60); GLUCOSE 295 mg/dl (70-220); MAGNESIUM 1.9 mg/dl (1.7-2.5); PHOSPHORUS 2.2 mg/dl (2.5-4.9); POTASSIUM 4.7 mmol/L (3.5-5.1); SODIUM 140 mmol/L (135-144)
[2018-03-30] MEDS: POTASSIUM CHLORIDE 30 MEQ in SOD CHLORIDE 0.9% 1,000 ML IV ×2 (01:34→08:20)
[2018-03-30] MEDS: morphine 2 MG INJ IV ×5 (04:07→20:54)
[2018-03-30] MEDS: PANTOPRAZOLE (EC) 40 MG TAB PO (05:16)
[2018-03-30 06:12] LABS: ADD MAN DIFF? NO
[2018-03-30 06:22] LABS: WHITE BLOOD COUNT 3.5 10^3/ul (4.8-10.8)
[2018-03-30 06:22] LABS: BASOPHILS % 0.3 % (0.0-2.0); EOSINOPHILS # 0.1 10^3/ul (0.0-0.5); HEMATOCRIT 36.4 % (42.0-52.0); HEMOGLOBIN 12.4 g/dl (14.0-18.0); MEAN CORPUSCULAR HEMOGLOBIN 31.9 pg (29.0-33.0); MEAN CORPUSCULAR HGB CONC 34.1 g/dl (32.0-37.0); MEAN CORPUSCULAR VOLUME 93.6 fl (82.0-101.0); MEAN PLATELET VOLUME 8.5 fl (7.4-10.4); MONOCYTE # 0.2 10^3/ul (0.3-0.9); MONOCYTES % 6.6 % (0.0-11.0); NEUTROPHIL # 2.1 10^3/ul (1.6-7.5); NEUTROPHILS % 60.8 % (39.0-77.0); PLATELET COUNT 228 10^3/UL (140-415); RED BLOOD COUNT 3.89 10^6/ul (4.70-6.10); RED CELL DISTRIBUTION WIDTH 11.9 % (11.5-14.5)
[2018-03-30 06:37] LABS: ANION GAP 12 (5-13); BLOOD UREA NITROGEN 8 mg/dl (7-20); CALCIUM 8.3 mg/dl (8.4-10.2); CARBON DIOXIDE 21 mmol/L (21-31); CHLORIDE 105 mmol/L (97-110); CREATININE 0.75 mg/dl (0.61-1.24); Estimated GFR > 60 mL/min (>60); GLUCOSE 326 mg/dl (70-220); MAGNESIUM 1.7 mg/dl (1.7-2.5); PHOSPHORUS 2.9 mg/dl (2.5-4.9); POTASSIUM 5.1 mmol/L (3.5-5.1); SODIUM 138 mmol/L (135-144)
[2018-03-30] MEDS: INSULIN REGULAR, HUMAN 100 UNIT in SOD CHLORIDE 0.9% 99 ML IV (08:28)
[2018-03-30] MEDS: MULTIVITAMINS 10 ML, THIAMINE 100 MG, FOLIC ACID 1 MG in SOD CHLORIDE 0.9% 1,000 ML IVPB (08:36)
[2018-03-30] MEDS: ENOXAPARIN 40 MG/0.4 ML SYG SC (08:37)
[2018-03-30 08:55] LABS: HEMOGLOBIN A1C 9.4 % (0-5.9)
[2018-03-30] MEDS: ONDANSETRON 4 MG INJ IV (08:58)
[2018-03-30] MEDS ORDERED: GLUCAGON 1 MG INJ IM (09:30)
[2018-03-30] MEDS ORDERED: GLUCOSE GEL 15 GRAM TUBE PO ×2 (09:30)
[2018-03-30] MEDS ORDERED: GLUCOSE GEL 15 GRAM TUBE BUCCAL (09:30)
[2018-03-30] MEDS ORDERED: DEXTROSE 50% 50 ML SYRINGE IV ×2 (09:30)
[2018-03-30 09:44] LABS: ANION GAP 14 (5-13); BLOOD UREA NITROGEN 8 mg/dl (7-20); CALCIUM 8.6 mg/dl (8.4-10.2); CARBON DIOXIDE 21 mmol/L (21-31); CHLORIDE 104 mmol/L (97-110); CREATININE 0.69 mg/dl (0.61-1.24); Estimated GFR > 60 mL/min (>60); GLUCOSE 221 mg/dl (70-220); MAGNESIUM 1.9 mg/dl (1.7-2.5); PHOSPHORUS 1.4 mg/dl (2.5-4.9); SODIUM 139 mmol/L (135-144)
[2018-03-30] MEDS: INSULIN GLARGINE [LANTus] (100 UNITS/ML) SYG SC (10:14)
[2018-03-30] MEDS: INSULIN ASPART [NOVOLOG] 3 ML PEN SC ×5 (11:30→20:54)
[2018-03-30] MEDS: POTASSIUM PHOSPHATE 40 MEQ in SOD CHLORIDE 0.9% 250 ML IVPB (12:16)
[2018-03-30] MEDS: NEUTRA-PHOS 250 MG PACKET PO ×2 (13:08→20:51)
[2018-03-30 13:36] LABS: ANION GAP 10 (5-13); BLOOD UREA NITROGEN 8 mg/dl (7-20); CALCIUM 8.6 mg/dl (8.4-10.2); CARBON DIOXIDE 26 mmol/L (21-31); CHLORIDE 103 mmol/L (97-110); CREATININE 0.69 mg/dl (0.61-1.24); Estimated GFR > 60 mL/min (>60); GLUCOSE 79 mg/dl (70-220); MAGNESIUM 1.9 mg/dl (1.7-2.5); PHOSPHORUS 2.8 mg/dl (2.5-4.9); POTASSIUM 3.5 mmol/L (3.5-5.1); SODIUM 139 mmol/L (135-144)
[2018-03-30 17:49] LABS: ANION GAP 12 (5-13); BLOOD UREA NITROGEN 6 mg/dl (7-20); CALCIUM 8.5 mg/dl (8.4-10.2); CARBON DIOXIDE 25 mmol/L (21-31); CHLORIDE 99 mmol/L (97-110); CREATININE 0.69 mg/dl (0.61-1.24); Estimated GFR > 60 mL/min (>60); GLUCOSE 73 mg/dl (70-220); MAGNESIUM 1.7 mg/dl (1.7-2.5); PHOSPHORUS 3.9 mg/dl (2.5-4.9); POTASSIUM 3.7 mmol/L (3.5-5.1); SODIUM 136 mmol/L (135-144)
[2018-03-30 22:17] LABS: ANION GAP 9 (5-13); BLOOD UREA NITROGEN 7 mg/dl (7-20); CALCIUM 8.7 mg/dl (8.4-10.2); CARBON DIOXIDE 30 mmol/L (21-31); CHLORIDE 95 mmol/L (97-110); CREATININE 0.83 mg/dl (0.61-1.24); Estimated GFR > 60 mL/min (>60); GLUCOSE 165 mg/dl (70-220); MAGNESIUM 1.8 mg/dl (1.7-2.5); SODIUM 134 mmol/L (135-144)
[2018-03-31] MEDS: ACCU-CHEK XX (02:00)
[2018-03-31] MEDS: PANTOPRAZOLE (EC) 40 MG TAB PO (05:42)
[2018-03-31] MEDS: morphine 2 MG INJ IV ×2 (08:01→20:34)
[2018-03-31] MEDS: INSULIN ASPART [NOVOLOG] 3 ML PEN SC ×7 (08:04→20:30)
[2018-03-31] MEDS: ENOXAPARIN 40 MG/0.4 ML SYG SC (08:05)
[2018-03-31] MEDS: INSULIN GLARGINE [LANTus] (100 UNITS/ML) SYG SC (08:05)
[2018-03-31] MEDS: MULTIVITAMINS 10 ML, THIAMINE 100 MG, FOLIC ACID 1 MG in SOD CHLORIDE 0.9% 1,000 ML IVPB (08:06)
[2018-03-31] MEDS: NEUTRA-PHOS 250 MG PACKET PO ×3 (08:07→20:31)
[2018-04-01] MEDS: morphine 2 MG INJ IV ×2 (02:07→08:48)
[2018-04-01] MEDS: PANTOPRAZOLE (EC) 40 MG TAB PO (06:54)
[2018-04-01] MEDS: INSULIN ASPART [NOVOLOG] 3 ML PEN SC ×6 (08:06→17:38)
[2018-04-01] MEDS: INSULIN GLARGINE [LANTus] (100 UNITS/ML) SYG SC (08:07)
[2018-04-01] MEDS: NEUTRA-PHOS 250 MG PACKET PO ×2 (08:48→12:58)
[2018-04-01] MEDS: MULTIVITAMINS 10 ML, THIAMINE 100 MG, FOLIC ACID 1 MG in SOD CHLORIDE 0.9% 1,000 ML IVPB (08:48)
[2018-04-01] MEDS: ENOXAPARIN 40 MG/0.4 ML SYG SC (08:49)
== END 2018-04-01 19:15 | disposition home or self-care (01) | DRG 639 ==
LOC: PP2 03-30 16:46 → E/R 14:13 → ICU 18:18
PROVIDERS: Internal Medicine
DX: E10.10 Type 1 diabetes mellitus with ketoacidosis without coma (principal); F10.10 Alcohol abuse, uncomplicated; Y90.8 Blood alcohol level of 240 mg/100 ml or more; K29.70 Gastritis, unspecified, without bleeding; F17.210 Nicotine dependence, cigarettes, uncomplicated; E83.39 Other disorders of phosphorus metabolism; Z79.4 Long term (current) use of insulin
CPT/HCPCS: 36415; 70450; 71045; 80048; 80053; 80307; 82803; 82962; 83036; 83690; 83735; 84100; 84484; 85025; 93005; 93306; 96374; 96375; 99285-25

== ENCOUNTER 2018-04-03 19:17 | Inpatient (IN) | payer BC ==
[2018-04-03 20:59] LABS: ADD MAN DIFF? NO
[2018-04-03 21:01] LABS: BASOPHILS % 0.6 % (0.0-2.0); EOSINOPHILS # 0.1 10^3/ul (0.0-0.5); EOSINOPHILS % 1.5 % (0.0-7.0); HEMATOCRIT 41.5 % (42.0-52.0); HEMOGLOBIN 14.4 g/dl (14.0-18.0); LYMPHOCYTES # 1.6 10^3/ul (0.8-2.9); MEAN CORPUSCULAR HEMOGLOBIN 31.6 pg (29.0-33.0); MEAN CORPUSCULAR HGB CONC 34.7 g/dl (32.0-37.0); MEAN CORPUSCULAR VOLUME 91.2 fl (82.0-101.0); MEAN PLATELET VOLUME 8.2 fl (7.4-10.4); MONOCYTE # 0.3 10^3/ul (0.3-0.9); NEUTROPHIL # 1.5 10^3/ul (1.6-7.5); NEUTROPHILS % 43.6 % (39.0-77.0); PLATELET COUNT 225 10^3/UL (140-415); RED BLOOD COUNT 4.55 10^6/ul (4.70-6.10); RED CELL DISTRIBUTION WIDTH 11.8 % (11.5-14.5)
[2018-04-03 21:01] LABS: WHITE BLOOD COUNT 3.4 10^3/ul (4.8-10.8)
[2018-04-03] MEDS: SOD CHLORIDE 0.9% 2,000 ML IV (21:02)
[2018-04-03] MEDS: SOD CHLORIDE 0.9% 100 ML (21:04)
[2018-04-03] MEDS: IOHEXOL 100 ML (21:04)
[2018-04-03 21:05] LABS: ADD UMIC YES; UR ASCORBIC ACID NEGATIVE (NEGATIVE); UR BILIRUBIN (Dip) NEGATIVE (NEGATIVE); UR BLOOD (Dip) 1+ mg/dL (NEGATIVE); UR CLARITY CLEAR (CLEAR); UR COLOR STRAW (YELLOW); UR GLUCOSE (Dip) 3+ mg/dL (NEGATIVE); UR KETONES (Dip) 1+ mg/dL (NEGATIVE); UR LEUKOCYTE ESTERASE (Dip) NEGATIVE Leu/ul (NEGATIVE); UR NITRITE (Dip) NEGATIVE (NEGATIVE); UR RBC 0 /HPF (0-5); UR SPECIFIC GRAVITY (Dip) 1.029 (1.003-1.030); UR TOTAL PROTEIN (Dip) NEGATIVE (NEGATIVE); UR UROBILINOGEN (Dip) NEGATIVE (NEGATIVE); UR WBC 0 /HPF (0-5)
[2018-04-03 21:17] LABS: ALANINE AMINOTRANSFERASE 47 IU/L (13-69); ALBUMIN 5.2 g/dl (3.3-4.9); ALKALINE PHOSPHATASE 129 IU/L (42-121); ANION GAP 22 (5-13); ASPARTATE AMINO TRANSFERASE 96 IU/L (15-46); BILIRUBIN,INDIRECT 0.4 mg/dl (0-1.1); BILIRUBIN,TOTAL 0.4 mg/dl (0.2-1.3); BLOOD UREA NITROGEN 16 mg/dl (7-20); CALCIUM 9.9 mg/dl (8.4-10.2); CARBON DIOXIDE 22 mmol/L (21-31); CHLORIDE 94 mmol/L (97-110); CREATININE 0.93 mg/dl (0.61-1.24); Estimated GFR > 60 mL/min (>60); POTASSIUM 5.5 mmol/L (3.5-5.1); SODIUM 138 mmol/L (135-144); TOTAL PROTEIN 9.2 g/dl (6.1-8.1)
[2018-04-03 21:18] LABS: GLUCOSE 531 mg/dl (70-220)
[2018-04-03 21:29] LABS: TROPONIN-I 0.014 ng/ml (0.000-0.120)
[2018-04-03 21:38] LABS: ACETONE NEGATIVE (NEGATIVE)
[2018-04-03] MEDS: INSULIN LISPRO 100 UNIT/ML VIAL SC (21:54)
[2018-04-03] MEDS: SOD CHLORIDE 0.9% 1,000 ML IV (23:20)
[2018-04-03] MEDS: NA POLYST SULFON 15 GM/60 ML BTL PO (23:28)
[2018-04-03] MEDS ORDERED: BISACODYL (EC) 5 MG TAB PO (23:30)
[2018-04-03] MEDS ORDERED: NACL 0.9% 3 ML SYG IV (23:30)
[2018-04-03] MEDS ORDERED: INSULIN GLARGINE [LANtus] 3 ML PEN SC (23:30)
[2018-04-03] MEDS ORDERED: DOCUSATE SODIUM 100 MG CAP PO (23:30)
[2018-04-03] MEDS ORDERED: ONDANSETRON 4 MG INJ IV ×2 (23:30)
[2018-04-03] MEDS ORDERED: ACETAMINOPHEN 325 MG TAB PO (23:30)
[2018-04-04 00:34] LABS: AMPHETAMINE/METHAMPHETAMINE Negative (NEGATIVE); BARBITURATES Negative (NEGATIVE); BENZODIAZEPINES Negative (NEGATIVE); CANNABINOIDS Negative (NEGATIVE); COCAINE Negative (NEGATIVE); OPIATES Negative (NEGATIVE)
[2018-04-04] MEDS: ACCU-CHEK XX (02:04)
[2018-04-04] MEDS: SOD CHLORIDE 0.9% 1,000 ML IV ×3 (02:17→11:46)
[2018-04-04] MEDS: INSULIN GLARGINE [LANTus] (100 UNITS/ML) SYG SC ×2 (02:20→20:43)
[2018-04-04] MEDS: CHLORDIAZEPOXIDE 25 MG CAP PO ×3 (02:25→13:34)
[2018-04-04] MEDS: LORAZEPAM 2 MG INJ IV (02:27)
[2018-04-04 02:53] LABS: CK INDEX 0.7; CK-MB 9.76 ng/ml (0.0-2.4); CREATINE KINASE 1358 IU/L (23-200)
[2018-04-04 02:55] LABS: TROPONIN-I 0.014 ng/ml (0.000-0.120)
[2018-04-04] MEDS: THIAMINE 200 MG INJ IM ×2 (03:35→08:34)
[2018-04-04] MEDS: KETOROLAC 15 MG INJ IV ×2 (06:06→11:34)
[2018-04-04] MEDS: METOPROLOL (XL) 50 MG TAB PO (08:33)
[2018-04-04] MEDS: INSULIN ASPART [NOVOLOG] 3 ML PEN SC ×5 (08:52→20:42)
[2018-04-04] MEDS: ACETAMINOPHEN 325 MG TAB PO (08:55)
[2018-04-04 08:56] LABS: ADD MAN DIFF? NO
[2018-04-04] MEDS ORDERED: INSULIN GLULISINE 10 UNIT SQ (09:00)
[2018-04-04 09:01] LABS: ABNORMAL IP MESSAGE 1; BASOPHILS % 0.4 % (0.0-2.0); EOSINOPHILS # 0.1 10^3/ul (0.0-0.5); EOSINOPHILS % 2.9 % (0.0-7.0); HEMATOCRIT 35.4 % (42.0-52.0); HEMOGLOBIN 12.3 g/dl (14.0-18.0); LYMPHOCYTES # 1.3 10^3/ul (0.8-2.9); LYMPHOCYTES % 54.7 % (15.0-51.0); MEAN CORPUSCULAR HEMOGLOBIN 31.9 pg (29.0-33.0); MEAN CORPUSCULAR HGB CONC 34.7 g/dl (32.0-37.0); MEAN CORPUSCULAR VOLUME 91.9 fl (82.0-101.0); MEAN PLATELET VOLUME 8.1 fl (7.4-10.4); MONOCYTE # 0.3 10^3/ul (0.3-0.9); MONOCYTES % 11.1 % (0.0-11.0); NEUTROPHIL # 0.8 10^3/ul (1.6-7.5); NEUTROPHILS % 30.9 % (39.0-77.0); PLATELET COUNT 189 10^3/UL (140-415); POSITIVE DIFF @See below; RED BLOOD COUNT 3.85 10^6/ul (4.70-6.10); RED CELL DISTRIBUTION WIDTH 11.9 % (11.5-14.5)
[2018-04-04 09:01] LABS: WHITE BLOOD COUNT 2.4 10^3/ul (4.8-10.8)
[2018-04-04 09:20] LABS: CREATINE KINASE 1172 IU/L (23-200)
[2018-04-04 09:23] LABS: ALANINE AMINOTRANSFERASE 43 IU/L (13-69); ALBUMIN 4.2 g/dl (3.3-4.9); ALBUMIN/GLOBULIN RATIO 1.55; ALKALINE PHOSPHATASE 78 IU/L (42-121); ANION GAP 17 (5-13); ASPARTATE AMINO TRANSFERASE 76 IU/L (15-46); BILIRUBIN,INDIRECT 0.7 mg/dl (0-1.1); BILIRUBIN,TOTAL 0.7 mg/dl (0.2-1.3); BLOOD UREA NITROGEN 11 mg/dl (7-20); CALCIUM 8.1 mg/dl (8.4-10.2); CARBON DIOXIDE 26 mmol/L (21-31); CHLORIDE 100 mmol/L (97-110); Estimated GFR > 60 mL/min (>60); GLUCOSE 233 mg/dl (70-220); POTASSIUM 4.1 mmol/L (3.5-5.1); SODIUM 143 mmol/L (135-144); TOTAL PROTEIN 6.9 g/dl (6.1-8.1)
[2018-04-04 09:32] LABS: CK INDEX 0.5; CK-MB 6.37 ng/ml (0.0-2.4); TROPONIN-I < 0.012 ng/ml (0.000-0.120)
[2018-04-04 09:36] LABS: FREE T4 (FREE THYROXINE) 1.06 ng/dl (0.79-2.35)
[2018-04-04 09:48] LABS: FREE T3 2.91 pg/ml (2.77-5.27)
[2018-04-04 09:51] LABS: THYROID STIMULATING HORMONE 0.202 MIU/L (0.465-4.680)
[2018-04-05] MEDS: ACCU-CHEK XX (02:00)
[2018-04-05] MEDS ORDERED: CHLORDIAZEPOXIDE 25 MG CAP PO (02:00)
[2018-04-05] MEDS: INSULIN ASPART [NOVOLOG] 3 ML PEN SC ×2 (08:12→08:14)
[2018-04-06] MEDS ORDERED: CHLORDIAZEPOXIDE 25 MG CAP PO (02:00)
== END 2018-04-05 10:48 | disposition home or self-care (01) | DRG 638 ==
LOC: 6WM 23:21 → E/R 19:17
DX: E10.65 Type 1 diabetes mellitus with hyperglycemia (principal); M62.82 Rhabdomyolysis; E87.5 Hyperkalemia; R55 Syncope and collapse; F10.220 Alcohol dependence with intoxication, uncomplicated; Y90.7 Blood alcohol level of 200-239 mg/100 ml; Z79.4 Long term (current) use of insulin; Z91.14 Patient's other noncompliance with medication regimen
CPT/HCPCS: 36415; 70450; 71045; 71275; 80053; 80307; 81001; 82010; 82550; 82553; 82962; 84439; 84443; 84481; 84484; 85025; 85378; 93005; 96372; 99285-25

== ENCOUNTER 2018-04-12 16:46 | Emergency (ER) | payer BC ==
[2018-04-12 20:26] LABS: ADD MAN DIFF? NO
[2018-04-12 20:27] LABS: WHITE BLOOD COUNT 4.1 10^3/ul (4.8-10.8)
[2018-04-12 20:27] LABS: BASOPHILS % 0.5 % (0.0-2.0); EOSINOPHILS # 0.1 10^3/ul (0.0-0.5); EOSINOPHILS % 1.5 % (0.0-7.0); HEMOGLOBIN 13.7 g/dl (14.0-18.0); LYMPHOCYTES # 2.4 10^3/ul (0.8-2.9); LYMPHOCYTES % 57.3 % (15.0-51.0); MEAN CORPUSCULAR HGB CONC 34.3 g/dl (32.0-37.0); MEAN CORPUSCULAR VOLUME 93.5 fl (82.0-101.0); MEAN PLATELET VOLUME 8.2 fl (7.4-10.4); MONOCYTE # 0.4 10^3/ul (0.3-0.9); MONOCYTES % 9.2 % (0.0-11.0); NEUTROPHIL # 1.3 10^3/ul (1.6-7.5); NEUTROPHILS % 31.3 % (39.0-77.0); PLATELET COUNT 314 10^3/UL (140-415); RED BLOOD COUNT 4.28 10^6/ul (4.70-6.10); RED CELL DISTRIBUTION WIDTH 12.8 % (11.5-14.5)
[2018-04-12 20:44] LABS: ANION GAP 17 (5-13); BLOOD UREA NITROGEN 9 mg/dl (7-20); CALCIUM 9.4 mg/dl (8.4-10.2); CARBON DIOXIDE 27 mmol/L (21-31); CHLORIDE 100 mmol/L (97-110); CREATININE 0.79 mg/dl (0.61-1.24); Estimated GFR > 60 mL/min (>60); GLUCOSE 222 mg/dl (70-220); POTASSIUM 3.9 mmol/L (3.5-5.1); SODIUM 144 mmol/L (135-144)
[2018-04-12] MEDS: ACETAMINOPHEN 500 MG TAB PO (20:56)
[2018-04-12 20:57] LABS: B-TYPE NATRIURETIC PEPTIDE < 11 PG/ML (0-125); TROPONIN-I < 0.012 ng/ml (0.000-0.120)
== END 2018-04-12 22:32 | disposition home or self-care (01) ==
LOC: E/R 16:46
DX: M79.643 Pain in unspecified hand (principal); R07.9 Chest pain, unspecified; E11.9 Type 2 diabetes mellitus without complications; I50.9 Heart failure, unspecified; Z79.4 Long term (current) use of insulin; Z79.82 Long term (current) use of aspirin
CPT/HCPCS: 71045; 73130-RT; 80048; 82962; 83880; 84484; 85025; 93005; 99285-25

== ENCOUNTER 2018-05-06 15:56 | Inpatient (IN) | payer BC ==
[2018-05-06 16:27] LABS: ADD MAN DIFF? NO
[2018-05-06 16:31] LABS: WHITE BLOOD COUNT 4.4 10^3/ul (4.8-10.8)
[2018-05-06 16:31] LABS: BASOPHILS % 0.5 % (0.0-2.0); EOSINOPHILS # 0.1 10^3/ul (0.0-0.5); EOSINOPHILS % 1.4 % (0.0-7.0); HEMATOCRIT 37.8 % (42.0-52.0); HEMOGLOBIN 13.1 g/dl (14.0-18.0); LYMPHOCYTES # 1.3 10^3/ul (0.8-2.9); LYMPHOCYTES % 29.7 % (15.0-51.0); MEAN CORPUSCULAR HEMOGLOBIN 31.6 pg (29.0-33.0); MEAN CORPUSCULAR HGB CONC 34.7 g/dl (32.0-37.0); MEAN CORPUSCULAR VOLUME 91.1 fl (82.0-101.0); MEAN PLATELET VOLUME 8.4 fl (7.4-10.4); MONOCYTE # 0.2 10^3/ul (0.3-0.9); NEUTROPHIL # 2.8 10^3/ul (1.6-7.5); NEUTROPHILS % 62.9 % (39.0-77.0); PLATELET COUNT 321 10^3/UL (140-415); RED BLOOD COUNT 4.15 10^6/ul (4.70-6.10); RED CELL DISTRIBUTION WIDTH 12.5 % (11.5-14.5)
[2018-05-06] MEDS: SOD CHLORIDE 0.9% 730 ML IV (16:34)
[2018-05-06 16:38] LABS: ADD UMIC NO; UR ASCORBIC ACID NEGATIVE (NEGATIVE); UR BILIRUBIN (Dip) NEGATIVE (NEGATIVE); UR BLOOD (Dip) NEGATIVE (NEGATIVE); UR CLARITY CLEAR (CLEAR); UR COLOR COLORLESS (YELLOW); UR GLUCOSE (Dip) 3+ mg/dL (NEGATIVE); UR KETONES (Dip) TRACE mg/dL (NEGATIVE); UR LEUKOCYTE ESTERASE (Dip) NEGATIVE Leu/ul (NEGATIVE); UR NITRITE (Dip) NEGATIVE (NEGATIVE); UR SPECIFIC GRAVITY (Dip) 1.022 (1.003-1.030); UR TOTAL PROTEIN (Dip) NEGATIVE (NEGATIVE); UR UROBILINOGEN (Dip) NEGATIVE (NEGATIVE)
[2018-05-06 16:50] LABS: ALANINE AMINOTRANSFERASE 24 IU/L (13-69); ALBUMIN 4.6 g/dl (3.3-4.9); ALBUMIN/GLOBULIN RATIO 1.58; ALKALINE PHOSPHATASE 130 IU/L (42-121); ANION GAP 23 (5-13); ASPARTATE AMINO TRANSFERASE 34 IU/L (15-46); BILIRUBIN,INDIRECT 0.5 mg/dl (0-1.1); BILIRUBIN,TOTAL 0.5 mg/dl (0.2-1.3); BLOOD UREA NITROGEN 8 mg/dl (7-20); CALCIUM 9.4 mg/dl (8.4-10.2); CARBON DIOXIDE 20 mmol/L (21-31); CHLORIDE 95 mmol/L (97-110); CREATININE 0.77 mg/dl (0.61-1.24); Estimated GFR > 60 mL/min (>60); LIPASE 138 U/L (23-300); MAGNESIUM 1.9 mg/dl (1.7-2.5); PHOSPHORUS 4.9 mg/dl (2.5-4.9); POTASSIUM 4.5 mmol/L (3.5-5.1); SODIUM 138 mmol/L (135-144); TOTAL PROTEIN 7.5 g/dl (6.1-8.1)
[2018-05-06 16:52] LABS: PROTIME 12.2 Sec (11.9-14.9)
[2018-05-06 17:01] LABS: GLUCOSE 585 mg/dl (70-220)
[2018-05-06 17:03] LABS: AMPHETAMINE/METHAMPHETAMINE NEGATIVE (NEGATIVE); BARBITURATES NEGATIVE (NEGATIVE); BENZODIAZEPINES NEGATIVE (NEGATIVE); CANNABINOIDS NEGATIVE (NEGATIVE); COCAINE NEGATIVE (NEGATIVE); OPIATES NEGATIVE (NEGATIVE)
[2018-05-06 17:14] LABS: AADO2 Venous 49.2 mmHg; MetHgb Venous 0.1 %; Sample Type Blood venous; Site OTHER; Venous COHb 0.4 %; Venous Fraction OxyHgb 79.4 %; Venous Oxygen Sat 79.8 mmHG (55.0-75.0); Venous Total Hemglobin 14.6 g/dl
[2018-05-06] MEDS ORDERED: SODIUM CHLORIDE 23.4% 77 MEQ in DEXTROSE 10% 1,000 ML IV ×2 (18:00→18:11)
[2018-05-06] MEDS ORDERED: DEXTROSE 50% 50 ML SYRINGE IV ×2 (18:00→18:30)
[2018-05-06] MEDS ORDERED: SODIUM CHLORIDE 23.4% 77 MEQ, POTASSIUM CHLORIDE 40 MEQ in DEXTROSE 10% 1,000 ML IV ×2 (18:00→18:11)
[2018-05-06] MEDS ORDERED: POTASSIUM CHLORIDE 40 MEQ in SOD CHLORIDE 0.9% 1,000 ML IV ×2 (18:00→18:11)
[2018-05-06] MEDS ORDERED: SOD CHLORIDE 0.9% 1,000 ML IV ×2 (18:00→18:11)
[2018-05-06] MEDS ORDERED: POTASSIUM CHLORIDE 30 MEQ in SOD CHLORIDE 0.9% 1,000 ML IV (18:11)
[2018-05-06] MEDS ORDERED: SODIUM CHLORIDE 23.4% 77 MEQ, POTASSIUM CHLORIDE 30 MEQ in DEXTROSE 10% 1,000 ML IV (18:11)
[2018-05-06] MEDS ORDERED: NACL 0.9% 3 ML SYG IV (18:30)
[2018-05-06] MEDS ORDERED: INSULIN REGULAR, HUMAN 100 UNIT in SOD CHLORIDE 0.9% 100 ML IV (18:30)
[2018-05-06] MEDS ORDERED: POTASSIUM CHLORIDE 50 ML IVPB (18:30)
[2018-05-06] MEDS: LACTATED RINGER S IV (18:38)
[2018-05-06] MEDS: ACCU-CHEK XX ×6 (18:52→23:30)
[2018-05-06 19:01] LABS: HEMOGLOBIN A1C 10.1 % (0-5.9)
[2018-05-06 19:36] LABS: ANION GAP 18 (5-13); BLOOD UREA NITROGEN 6 mg/dl (7-20); CALCIUM 8.1 mg/dl (8.4-10.2); CARBON DIOXIDE 20 mmol/L (21-31); CHLORIDE 105 mmol/L (97-110); Estimated GFR > 60 mL/min (>60); MAGNESIUM 1.6 mg/dl (1.7-2.5); POTASSIUM 4.4 mmol/L (3.5-5.1); SODIUM 143 mmol/L (135-144)
[2018-05-06 19:49] LABS: GLUCOSE 420 mg/dl (70-220)
[2018-05-06] MEDS: ONDANSETRON 4 MG INJ IV (20:11)
[2018-05-06] MEDS: POTASSIUM CHLORIDE 30 MEQ in SOD CHLORIDE 0.9% 1,000 ML IV (20:17)
[2018-05-06] MEDS: INSULIN REGULAR, HUMAN 100 UNIT in SOD CHLORIDE 0.9% 100 ML IV (20:23)
[2018-05-06 20:42] LABS: MODE ROOM AIR; MetHgb Venous 0.1 %; Sample Type Blood venous; Site VENOUS LINE; Venous COHb 0.1 %; Venous Fraction OxyHgb 84.3 %; Venous Oxygen Sat 84.5 mmHG (55.0-75.0); Venous Total Hemglobin 13.2 g/dl
[2018-05-06] MEDS: KETOROLAC 15 MG INJ IV (21:04)
[2018-05-06 21:43] LABS: ANION GAP 19 (5-13); BLOOD UREA NITROGEN 8 mg/dl (7-20); CALCIUM 9.1 mg/dl (8.4-10.2); CARBON DIOXIDE 22 mmol/L (21-31); CHLORIDE 99 mmol/L (97-110); CREATININE 0.72 mg/dl (0.61-1.24); Estimated GFR > 60 mL/min (>60); GLUCOSE 370 mg/dl (70-220); MAGNESIUM 1.6 mg/dl (1.7-2.5); PHOSPHORUS 3.1 mg/dl (2.5-4.9); SODIUM 140 mmol/L (135-144)
[2018-05-06] MEDS: FOLIC ACID 1 MG TAB PO (23:03)
[2018-05-06] MEDS: THIAMINE 100 MG TAB PO (23:03)
[2018-05-06] MEDS: MULTIVITAMINS THERAPEUTIC TAB PO (23:03)
[2018-05-06] MEDS: SODIUM CHLORIDE 23.4% 77 MEQ, POTASSIUM CHLORIDE 30 MEQ in DEXTROSE 10% 1,000 ML IV (23:03)
[2018-05-06] MEDS: HYDROCODONE/APAP (5/325) TAB PO (23:04)
[2018-05-07] MEDS: ACCU-CHEK XX ×10 (01:06→09:30)
[2018-05-07 02:29] LABS: MODE ROOM AIR; MetHgb Venous 0.2 %; Sample Type Blood venous; Site VENOUS LINE; Venous COHb 0.3 %; Venous Fraction OxyHgb 93.8 %; Venous Oxygen Sat 94.3 mmHG (55.0-75.0); Venous Total Hemglobin 12.9 g/dl
[2018-05-07 02:32] LABS: ANION GAP 14 (5-13); BLOOD UREA NITROGEN 6 mg/dl (7-20); CALCIUM 8.8 mg/dl (8.4-10.2); CARBON DIOXIDE 25 mmol/L (21-31); CHLORIDE 106 mmol/L (97-110); CREATININE 0.67 mg/dl (0.61-1.24); Estimated GFR > 60 mL/min (>60); GLUCOSE 108 mg/dl (70-220); MAGNESIUM 1.6 mg/dl (1.7-2.5); PHOSPHORUS 3.4 mg/dl (2.5-4.9); POTASSIUM 3.9 mmol/L (3.5-5.1); SODIUM 145 mmol/L (135-144)
[2018-05-07] MEDS: HYDROCODONE/APAP (5/325) TAB PO ×2 (03:30→19:08)
[2018-05-07] MEDS: SODIUM CHLORIDE 23.4% 77 MEQ, POTASSIUM CHLORIDE 30 MEQ in DEXTROSE 10% 1,000 ML IV (03:58)
[2018-05-07 04:05] LABS: ADD UMIC NO; UR ASCORBIC ACID NEGATIVE (NEGATIVE); UR BILIRUBIN (Dip) NEGATIVE (NEGATIVE); UR BLOOD (Dip) NEGATIVE (NEGATIVE); UR CLARITY CLEAR (CLEAR); UR COLOR YELLOW (YELLOW); UR GLUCOSE (Dip) 3+ mg/dL (NEGATIVE); UR KETONES (Dip) 1+ mg/dL (NEGATIVE); UR LEUKOCYTE ESTERASE (Dip) NEGATIVE Leu/ul (NEGATIVE); UR NITRITE (Dip) NEGATIVE (NEGATIVE); UR SPECIFIC GRAVITY (Dip) 1.029 (1.003-1.030); UR TOTAL PROTEIN (Dip) NEGATIVE (NEGATIVE); UR UROBILINOGEN (Dip) NEGATIVE (NEGATIVE)
[2018-05-07] MEDS: DEXTROSE 50% 50 ML SYRINGE IV (05:00)
[2018-05-07 05:52] LABS: MODE NASAL CANNULA; MetHgb Venous 0.1 %; Sample Type Blood venous; Site VENOUS LINE; Venous COHb 0.3 %; Venous Oxygen Sat 93.4 mmHG (55.0-75.0); Venous Total Hemglobin 12.3 g/dl
[2018-05-07 06:21] LABS: ANION GAP 11 (5-13); BLOOD UREA NITROGEN 7 mg/dl (7-20); CALCIUM 8.6 mg/dl (8.4-10.2); CARBON DIOXIDE 29 mmol/L (21-31); CHLORIDE 102 mmol/L (97-110); CREATININE 0.62 mg/dl (0.61-1.24); Estimated GFR > 60 mL/min (>60); GLUCOSE 154 mg/dl (70-220); MAGNESIUM 1.5 mg/dl (1.7-2.5); PHOSPHORUS 3.2 mg/dl (2.5-4.9); POTASSIUM 3.7 mmol/L (3.5-5.1); SODIUM 142 mmol/L (135-144)
[2018-05-07] MEDS: PANTOPRAZOLE 40 MG INJ IV (06:40)
[2018-05-07] MEDS: ONDANSETRON 4 MG INJ IV ×2 (07:23→17:21)
[2018-05-07] MEDS: THIAMINE 100 MG TAB PO (08:57)
[2018-05-07] MEDS: MULTIVITAMINS THERAPEUTIC TAB PO (08:57)
[2018-05-07] MEDS: FOLIC ACID 1 MG TAB PO (08:57)
[2018-05-07] MEDS: INFLUENZA VIRUS VACCINE 0.5 ML (DISPENSING) IM* (08:57)
[2018-05-07] MEDS ORDERED: INSULIN HUMAN REGULAR 100 UNIT in SOD CHLORIDE 0.9% 99 ML IV (09:00)
[2018-05-07] MEDS: SOD CHLORIDE 0.9% 1,000 ML IV ×2 (09:30→21:49)
[2018-05-07] MEDS ORDERED: PROVENTIL HFA 6.7GM INHALER INH (09:30)
[2018-05-07] MEDS ORDERED: LORAZEPAM 2 MG INJ IV (09:30)
[2018-05-07 10:38] LABS: ANION GAP 14 (5-13); BLOOD UREA NITROGEN 7 mg/dl (7-20); CALCIUM 8.9 mg/dl (8.4-10.2); CARBON DIOXIDE 25 mmol/L (21-31); CHLORIDE 98 mmol/L (97-110); CREATININE 0.71 mg/dl (0.61-1.24); Estimated GFR > 60 mL/min (>60); GLUCOSE 301 mg/dl (70-220); MAGNESIUM 1.4 mg/dl (1.7-2.5); PHOSPHORUS 4.6 mg/dl (2.5-4.9); POTASSIUM 5.6 mmol/L (3.5-5.1); SODIUM 137 mmol/L (135-144)
[2018-05-07] MEDS ORDERED: INSULIN GLARGINE [LANtus] 3 ML PEN SC ×3 (11:00→21:00)
[2018-05-07] MEDS ORDERED: ALBUTEROL HFA 8 GM INHALER INH (11:00)
[2018-05-07] MEDS: MAGNESIUM SULFATE 2 GM/50 ML 50 ML IVPB (11:12)
[2018-05-07] MEDS: INSULIN GLARGINE [LANTus] (100 UNITS/ML) SYG SC (11:51)
[2018-05-07] MEDS: INSULIN ASPART [NOVOLOG] 3 ML PEN SC ×3 (11:51→21:33)
[2018-05-07] MEDS: MULTIVITAMINS 10 ML, THIAMINE 100 MG, FOLIC ACID 1 MG in SOD CHLORIDE 0.9% 1,000 ML IVPB (11:52)
[2018-05-07] MEDS ORDERED: INSULIN GLULISINE 10 UNIT SQ (13:00)
[2018-05-07] MEDS: NA POLYST SULFON 15 GM/60 ML BTL PO (19:08)
[2018-05-08] MEDS: ACCU-CHEK XX (02:00)
[2018-05-08] MEDS: HYDROCODONE/APAP (5/325) TAB PO ×3 (02:23→15:23)
[2018-05-08 05:25] LABS: ADD MAN DIFF? NO
[2018-05-08] MEDS: SOD CHLORIDE 0.9% 1,000 ML IV ×2 (05:30→09:04)
[2018-05-08 05:34] LABS: WHITE BLOOD COUNT 4.3 10^3/ul (4.8-10.8)
[2018-05-08 05:34] LABS: BASOPHILS % 0.2 % (0.0-2.0); EOSINOPHILS # 0.1 10^3/ul (0.0-0.5); EOSINOPHILS % 1.8 % (0.0-7.0); HEMATOCRIT 35.1 % (42.0-52.0); HEMOGLOBIN 12.2 g/dl (14.0-18.0); LYMPHOCYTES # 1.5 10^3/ul (0.8-2.9); LYMPHOCYTES % 35.6 % (15.0-51.0); MEAN CORPUSCULAR HEMOGLOBIN 31.6 pg (29.0-33.0); MEAN CORPUSCULAR HGB CONC 34.8 g/dl (32.0-37.0); MEAN CORPUSCULAR VOLUME 90.9 fl (82.0-101.0); MEAN PLATELET VOLUME 8.6 fl (7.4-10.4); MONOCYTE # 0.6 10^3/ul (0.3-0.9); MONOCYTES % 13.6 % (0.0-11.0); NEUTROPHIL # 2.1 10^3/ul (1.6-7.5); NEUTROPHILS % 48.6 % (39.0-77.0); PLATELET COUNT 261 10^3/UL (140-415); RED BLOOD COUNT 3.86 10^6/ul (4.70-6.10); RED CELL DISTRIBUTION WIDTH 12.3 % (11.5-14.5)
[2018-05-08] MEDS: PANTOPRAZOLE (EC) 40 MG TAB PO (05:51)
[2018-05-08 06:05] LABS: MAGNESIUM 1.8 mg/dl (1.7-2.5)
[2018-05-08 06:05] LABS: PHOSPHORUS 4.4 mg/dl (2.5-4.9)
[2018-05-08 06:20] LABS: ANION GAP 8 (5-13); BLOOD UREA NITROGEN 7 mg/dl (7-20); CALCIUM 8.8 mg/dl (8.4-10.2); CARBON DIOXIDE 30 mmol/L (21-31); CHLORIDE 97 mmol/L (97-110); CREATININE 0.75 mg/dl (0.61-1.24); Estimated GFR > 60 mL/min (>60); GLUCOSE 273 mg/dl (70-220); POTASSIUM 3.8 mmol/L (3.5-5.1); SODIUM 135 mmol/L (135-144)
[2018-05-08] MEDS: INSULIN GLARGINE [LANTus] (100 UNITS/ML) SYG SC (09:00)
[2018-05-08] MEDS: INSULIN ASPART [NOVOLOG] 3 ML PEN SC ×7 (09:01→21:00)
[2018-05-08] MEDS: THIAMINE 100 MG TAB PO (09:04)
[2018-05-08] MEDS: LISINOPRIL 5 MG TAB PO (09:05)
[2018-05-08] MEDS: FOLIC ACID 1 MG TAB PO (09:05)
[2018-05-08] MEDS: METOPROLOL (XL) 25 MG TAB PO (09:06)
[2018-05-08] MEDS: MULTIVITAMINS 10 ML, THIAMINE 100 MG, FOLIC ACID 1 MG in SOD CHLORIDE 0.9% 1,000 ML IVPB (10:21)
[2018-05-08] MEDS ORDERED: INSULIN GLARGINE [LANTus] (100 UNITS/ML) SYG SC (12:00)
[2018-05-08] MEDS: HYDROCODONE/APAP (5/325) TAB GTB ×2 (15:22→20:16)
[2018-05-08 20:12] LABS: ADD UMIC NO; UR ASCORBIC ACID NEGATIVE (NEGATIVE); UR BILIRUBIN (Dip) NEGATIVE (NEGATIVE); UR BLOOD (Dip) NEGATIVE (NEGATIVE); UR CLARITY CLEAR (CLEAR); UR COLOR STRAW (YELLOW); UR GLUCOSE (Dip) 2+ mg/dL (NEGATIVE); UR KETONES (Dip) TRACE mg/dL (NEGATIVE); UR LEUKOCYTE ESTERASE (Dip) NEGATIVE Leu/ul (NEGATIVE); UR NITRITE (Dip) NEGATIVE (NEGATIVE); UR SPECIFIC GRAVITY (Dip) 1.004 (1.003-1.030); UR TOTAL PROTEIN (Dip) NEGATIVE (NEGATIVE); UR UROBILINOGEN (Dip) NEGATIVE (NEGATIVE)
[2018-05-08] MEDS: ONDANSETRON 4 MG INJ IV (20:16)
[2018-05-08] MEDS: BISMUTH SUBSALICYLATE 120 ML BTL PO (23:12)
[2018-05-09] MEDS: HYDROCODONE/APAP (5/325) TAB GTB ×2 (01:59→09:05)
[2018-05-09] MEDS: ONDANSETRON 4 MG INJ IV ×2 (02:00→09:05)
[2018-05-09] MEDS: ACCU-CHEK XX (02:00)
[2018-05-09] MEDS: SOD CHLORIDE 0.9% 1,000 ML IV ×2 (03:30→11:30)
[2018-05-09] MEDS: PANTOPRAZOLE (EC) 40 MG TAB PO (06:37)
[2018-05-09] MEDS: THIAMINE 100 MG TAB PO (08:54)
[2018-05-09] MEDS: FOLIC ACID 1 MG TAB PO (08:54)
[2018-05-09] MEDS: LISINOPRIL 5 MG TAB PO (08:55)
[2018-05-09] MEDS: METOPROLOL (XL) 25 MG TAB PO (08:56)
[2018-05-09] MEDS: INSULIN GLARGINE [LANTus] (100 UNITS/ML) SYG SC (08:59)
[2018-05-09] MEDS ORDERED: INSULIN GLARGINE [LANTus] (100 UNITS/ML) SYG SC ×2 (09:00)
[2018-05-09] MEDS: INSULIN ASPART [NOVOLOG] 3 ML PEN SC ×7 (09:00→18:53)
[2018-05-09] MEDS: MULTIVITAMINS 10 ML, THIAMINE 100 MG, FOLIC ACID 1 MG in SOD CHLORIDE 0.9% 1,000 ML IVPB (09:05)
[2018-05-09] MEDS: HYDROCODONE/APAP (5/325) TAB PO (13:52)
[2018-05-09] MEDS ORDERED: LORAZEPAM 4 MG/ML VIAL IV (15:30)
[2018-05-09] MEDS: DEXTROSE 50% 50 ML SYRINGE IV (15:52)
== END 2018-05-09 19:30 | disposition home or self-care (01) | DRG 638 ==
LOC: E/R 15:56 → MS1 05-07 22:12 → ICU 18:08
DX: E10.10 Type 1 diabetes mellitus with ketoacidosis without coma (principal); I50.22 Chronic systolic (congestive) heart failure; F10.129 Alcohol abuse with intoxication, unspecified; I11.0 Hypertensive heart disease with heart failure; Y90.8 Blood alcohol level of 240 mg/100 ml or more; Z91.14 Patient's other noncompliance with medication regimen
CPT/HCPCS: 36415; 71045; 80048; 80053; 80307; 81003; 82803; 82962; 83036; 83690; 83735; 84100; 85025; 85610; 85730; 87081; 90686; 99291-25

== ENCOUNTER 2018-06-01 15:57 | Emergency (ER) | payer BC ==
[2018-06-01 17:37] LABS: ADD MAN DIFF? NO
[2018-06-01 17:41] LABS: WHITE BLOOD COUNT 4.8 10^3/ul (4.8-10.8)
[2018-06-01 17:41] LABS: BASOPHILS % 0.4 % (0.0-2.0); EOSINOPHILS # 0.1 10^3/ul (0.0-0.5); HEMATOCRIT 45.6 % (42.0-52.0); HEMOGLOBIN 15.6 g/dl (14.0-18.0); LYMPHOCYTES # 2.2 10^3/ul (0.8-2.9); LYMPHOCYTES % 46.3 % (15.0-51.0); MEAN CORPUSCULAR HEMOGLOBIN 31.1 pg (29.0-33.0); MEAN CORPUSCULAR HGB CONC 34.2 g/dl (32.0-37.0); MEAN CORPUSCULAR VOLUME 90.8 fl (82.0-101.0); MEAN PLATELET VOLUME 8.2 fl (7.4-10.4); MONOCYTE # 0.4 10^3/ul (0.3-0.9); MONOCYTES % 7.4 % (0.0-11.0); NEUTROPHIL # 2.2 10^3/ul (1.6-7.5); NEUTROPHILS % 44.7 % (39.0-77.0); PLATELET COUNT 351 10^3/UL (140-415); RED BLOOD COUNT 5.02 10^6/ul (4.70-6.10); RED CELL DISTRIBUTION WIDTH 12.7 % (11.5-14.5)
[2018-06-01] MEDS: SOD CHLORIDE 0.9% 730 ML IV (17:50)
[2018-06-01 17:55] LABS: ANION GAP 19 (5-13); BLOOD UREA NITROGEN 13 mg/dl (7-20); CARBON DIOXIDE 32 mmol/L (21-31); CHLORIDE 98 mmol/L (97-110); CREATININE 0.93 mg/dl (0.61-1.24); Estimated GFR > 60 mL/min (>60); GLUCOSE 312 mg/dl (70-220); MAGNESIUM 1.9 mg/dl (1.7-2.5); PHOSPHORUS 4.5 mg/dl (2.5-4.9); POTASSIUM 4.5 mmol/L (3.5-5.1); SODIUM 149 mmol/L (135-144)
[2018-06-01] MEDS: LORAZEPAM 2 MG INJ IV ×2 (17:57→20:05)
[2018-06-01 18:16] LABS: ALANINE AMINOTRANSFERASE 26 IU/L (13-69); ALBUMIN 5.3 g/dl (3.3-4.9); ALKALINE PHOSPHATASE 128 IU/L (42-121); ASPARTATE AMINO TRANSFERASE 45 IU/L (15-46); TOTAL PROTEIN 9.6 g/dl (6.1-8.1)
[2018-06-01 18:31] LABS: BILIRUBIN,INDIRECT 0.5 mg/dl (0-1.1); BILIRUBIN,TOTAL 0.5 mg/dl (0.2-1.3); LIPASE 66 U/L (23-300)
[2018-06-01 19:35] LABS: MODE ROOM AIR; MetHgb Venous 0.4 %; Sample Type Blood venous; Site VENOUS LINE; Venous COHb 0.3 %; Venous Fraction OxyHgb 86.7 %; Venous Oxygen Sat 87.3 mmHG (55.0-75.0); Venous Total Hemglobin 14.7 g/dl
[2018-06-01] MEDS: INSULIN LISPRO 100 UNIT/ML VIAL SC (19:50)
[2018-06-01] MEDS: SOD CHLORIDE 0.9% 500 ML IV (19:58)
[2018-06-01] MEDS: SOD CHLORIDE 0.9% 1,000 ML IV ×2 (19:58→20:05)
[2018-06-01 20:15] LABS: ADD UMIC YES; UR ASCORBIC ACID NEGATIVE (NEGATIVE); UR BILIRUBIN (Dip) NEGATIVE (NEGATIVE); UR BLOOD (Dip) 1+ mg/dL (NEGATIVE); UR CLARITY CLEAR (CLEAR); UR COLOR YELLOW (YELLOW); UR GLUCOSE (Dip) 3+ mg/dL (NEGATIVE); UR KETONES (Dip) 1+ mg/dL (NEGATIVE); UR LEUKOCYTE ESTERASE (Dip) NEGATIVE Leu/ul (NEGATIVE); UR NITRITE (Dip) NEGATIVE (NEGATIVE); UR RBC 0 /HPF (0-5); UR SPECIFIC GRAVITY (Dip) 1.028 (1.003-1.030); UR TOTAL PROTEIN (Dip) 2+ mg/dl (NEGATIVE); UR UROBILINOGEN (Dip) NEGATIVE (NEGATIVE); UR WBC 0 /HPF (0-5)
== END 2018-06-01 22:44 | disposition home or self-care (01) ==
LOC: E/R 22:44
DX: E11.65 Type 2 diabetes mellitus with hyperglycemia (principal); I50.9 Heart failure, unspecified; I25.2 Old myocardial infarction; E86.0 Dehydration; Z79.4 Long term (current) use of insulin
CPT/HCPCS: 36415; 80048; 80076; 81001; 82803; 82962; 83690; 83735; 84100; 85025; 93005; 96372; 96374; 96376; 99284-25

== ENCOUNTER 2018-06-09 18:59 | Emergency (ER) | payer BC ==
[2018-06-09 21:49] LABS: MODE ROOM AIR; MetHgb Venous 0.3 %; Sample Type Blood venous; Site VENOUS LINE; Venous COHb 0.5 %; Venous Fraction OxyHgb 85.8 %; Venous Oxygen Sat 86.5 mmHG (55.0-75.0); Venous Total Hemglobin 14.4 g/dl
[2018-06-09 21:53] LABS: ADD MAN DIFF? NO
[2018-06-09 21:54] LABS: WHITE BLOOD COUNT 5.1 10^3/ul (4.8-10.8)
[2018-06-09 21:54] LABS: BASOPHILS % 0.4 % (0.0-2.0); EOSINOPHILS # 0.1 10^3/ul (0.0-0.5); EOSINOPHILS % 1.2 % (0.0-7.0); HEMATOCRIT 39.6 % (42.0-52.0); HEMOGLOBIN 13.3 g/dl (14.0-18.0); LYMPHOCYTES # 2.4 10^3/ul (0.8-2.9); MEAN CORPUSCULAR HEMOGLOBIN 30.9 pg (29.0-33.0); MEAN CORPUSCULAR HGB CONC 33.6 g/dl (32.0-37.0); MEAN CORPUSCULAR VOLUME 91.9 fl (82.0-101.0); MEAN PLATELET VOLUME 8.2 fl (7.4-10.4); MONOCYTE # 0.4 10^3/ul (0.3-0.9); MONOCYTES % 7.2 % (0.0-11.0); NEUTROPHIL # 2.3 10^3/ul (1.6-7.5); PLATELET COUNT 243 10^3/UL (140-415); RED BLOOD COUNT 4.31 10^6/ul (4.70-6.10); RED CELL DISTRIBUTION WIDTH 13.3 % (11.5-14.5)
[2018-06-09] MEDS: SOD CHLORIDE 0.9% 760 ML IV (22:01)
[2018-06-09 22:17] LABS: ALANINE AMINOTRANSFERASE 19 IU/L (13-69); ALBUMIN 4.7 g/dl (3.3-4.9); ALBUMIN/GLOBULIN RATIO 1.42; ALKALINE PHOSPHATASE 99 IU/L (42-121); ANION GAP 16 (5-13); ASPARTATE AMINO TRANSFERASE 46 IU/L (15-46); BILIRUBIN,INDIRECT 0.5 mg/dl (0-1.1); BILIRUBIN,TOTAL 0.5 mg/dl (0.2-1.3); BLOOD UREA NITROGEN 11 mg/dl (7-20); CALCIUM 9.5 mg/dl (8.4-10.2); CARBON DIOXIDE 24 mmol/L (21-31); CHLORIDE 102 mmol/L (97-110); CREATININE 0.81 mg/dl (0.61-1.24); Estimated GFR > 60 mL/min (>60); GLUCOSE 312 mg/dl (70-220); MAGNESIUM 1.8 mg/dl (1.7-2.5); PHOSPHORUS 4.5 mg/dl (2.5-4.9); POTASSIUM 4.1 mmol/L (3.5-5.1); SODIUM 142 mmol/L (135-144)
[2018-06-09 22:28] LABS: TROPONIN-I < 0.012 ng/ml (0.000-0.120)
[2018-06-09 23:58] LABS: ADD UMIC NO; UR ASCORBIC ACID NEGATIVE (NEGATIVE); UR BILIRUBIN (Dip) NEGATIVE (NEGATIVE); UR BLOOD (Dip) NEGATIVE (NEGATIVE); UR CLARITY CLEAR (CLEAR); UR COLOR STRAW (YELLOW); UR GLUCOSE (Dip) 3+ mg/dL (NEGATIVE); UR KETONES (Dip) TRACE mg/dL (NEGATIVE); UR LEUKOCYTE ESTERASE (Dip) NEGATIVE Leu/ul (NEGATIVE); UR NITRITE (Dip) NEGATIVE (NEGATIVE); UR SPECIFIC GRAVITY (Dip) 1.018 (1.003-1.030); UR TOTAL PROTEIN (Dip) NEGATIVE (NEGATIVE); UR UROBILINOGEN (Dip) NEGATIVE (NEGATIVE)
== END 2018-06-10 03:42 | disposition home or self-care (01) ==
LOC: E/R 06-10 03:42
DX: R07.9 Chest pain, unspecified (principal); I50.9 Heart failure, unspecified; E11.9 Type 2 diabetes mellitus without complications; I25.2 Old myocardial infarction; Z79.4 Long term (current) use of insulin
CPT/HCPCS: 36415; 71045; 80053; 80307; 81003; 82803; 82962; 83735; 84100; 84484; 85025; 93005; 99285-25

== ENCOUNTER 2018-06-10 15:38 | Emergency (ER) | payer SELFPAY, BC | END 2018-06-10 19:04 | disposition left against medical advice (07) | LOC: E/R 15:38 | DX: Z53.21 Procedure and treatment not carried out due to patient leaving prior to being seen by health care provider (principal) | CPT/HCPCS: 82962 ==

== ENCOUNTER 2018-07-03 05:26 | Emergency (ER) | payer SELFPAY | END 2018-07-03 05:51 | disposition left against medical advice (07) | LOC: E/R 05:26 | DX: Z53.21 Procedure and treatment not carried out due to patient leaving prior to being seen by health care provider (principal) | CPT/HCPCS: 82962 ==

== ENCOUNTER 2018-07-04 14:10 | Emergency (ER) | payer BC ==
[2018-07-04 16:14] LABS: ADD MAN DIFF? NO
[2018-07-04 16:15] LABS: BASOPHILS % 0.4 % (0.0-2.0); EOSINOPHILS % 0.3 % (0.0-7.0); HEMATOCRIT 47.4 % (42.0-52.0); LYMPHOCYTES # 1.7 10^3/ul (0.8-2.9); LYMPHOCYTES % 24.8 % (15.0-51.0); MEAN CORPUSCULAR HEMOGLOBIN 30.4 pg (29.0-33.0); MEAN CORPUSCULAR HGB CONC 33.8 g/dl (32.0-37.0); MEAN CORPUSCULAR VOLUME 89.9 fl (82.0-101.0); MONOCYTE # 0.4 10^3/ul (0.3-0.9); NEUTROPHIL # 4.8 10^3/ul (1.6-7.5); NEUTROPHILS % 68.1 % (39.0-77.0); PLATELET COUNT 467 10^3/UL (140-415); RED BLOOD COUNT 5.27 10^6/ul (4.70-6.10); RED CELL DISTRIBUTION WIDTH 13.3 % (11.5-14.5)
[2018-07-04] MEDS: SOD CHLORIDE 0.9% 770 ML IV (16:16)
[2018-07-04] MEDS: morphine 4 MG/ML VIAL IV (16:17)
[2018-07-04] MEDS: ONDANSETRON 4 MG INJ IV (16:17)
[2018-07-04 16:35] LABS: MODE ROOM AIR; MetHgb Venous 0.2 %; Sample Type Blood venous; Site VENOUS LINE; Venous COHb 0.3 %; Venous Fraction OxyHgb 93.1 %; Venous Oxygen Sat 93.6 mmHG (55.0-75.0); Venous Total Hemglobin 15.9 g/dl
[2018-07-04 16:39] LABS: ANION GAP 19 (5-13); BLOOD UREA NITROGEN 11 mg/dl (7-20); CALCIUM 9.6 mg/dl (8.4-10.2); CARBON DIOXIDE 28 mmol/L (21-31); CHLORIDE 97 mmol/L (97-110); CREATININE 0.77 mg/dl (0.61-1.24); Estimated GFR > 60 mL/min (>60); GLUCOSE 283 mg/dl (70-220); PHOSPHORUS 3.9 mg/dl (2.5-4.9); POTASSIUM 4.7 mmol/L (3.5-5.1); SODIUM 144 mmol/L (135-144)
[2018-07-04 16:50] LABS: TROPONIN-I < 0.012 ng/ml (0.000-0.120)
[2018-07-04] MEDS: KETOROLAC 30 MG INJ IV (16:54)
== END 2018-07-04 18:17 | disposition home or self-care (01) ==
LOC: E/R 14:10
DX: E11.65 Type 2 diabetes mellitus with hyperglycemia (principal); I50.9 Heart failure, unspecified; I25.2 Old myocardial infarction; Z79.4 Long term (current) use of insulin
CPT/HCPCS: 36415; 71045; 80048; 82803; 82962; 83735; 84100; 84484; 85025; 96374; 96375; 99285-25

== ENCOUNTER 2018-07-05 01:52 | Emergency (ER) | payer BC ==
[2018-07-05 07:31] LABS: ADD MAN DIFF? NO
[2018-07-05 07:37] LABS: WHITE BLOOD COUNT 5.4 10^3/ul (4.8-10.8)
[2018-07-05 07:37] LABS: BASOPHILS % 0.6 % (0.0-2.0); EOSINOPHILS % 0.2 % (0.0-7.0); HEMATOCRIT 41.2 % (42.0-52.0); HEMOGLOBIN 14.1 g/dl (14.0-18.0); LYMPHOCYTES # 1.5 10^3/ul (0.8-2.9); LYMPHOCYTES % 26.7 % (15.0-51.0); MEAN CORPUSCULAR HEMOGLOBIN 30.7 pg (29.0-33.0); MEAN CORPUSCULAR HGB CONC 34.2 g/dl (32.0-37.0); MEAN CORPUSCULAR VOLUME 89.8 fl (82.0-101.0); MEAN PLATELET VOLUME 7.9 fl (7.4-10.4); MONOCYTE # 0.4 10^3/ul (0.3-0.9); MONOCYTES % 7.7 % (0.0-11.0); NEUTROPHIL # 3.5 10^3/ul (1.6-7.5); NEUTROPHILS % 64.4 % (39.0-77.0); PLATELET COUNT 387 10^3/UL (140-415); RED BLOOD COUNT 4.59 10^6/ul (4.70-6.10); RED CELL DISTRIBUTION WIDTH 13.4 % (11.5-14.5)
[2018-07-05] MEDS: SOD CHLORIDE 0.9% 1,000 ML IV ×2 (07:37→08:47)
[2018-07-05] MEDS: ONDANSETRON 4 MG INJ IV ×2 (07:40→10:18)
[2018-07-05] MEDS: KETOROLAC 30 MG INJ IV (07:40)
[2018-07-05] MEDS: morphine 4 MG/ML VIAL IV ×2 (07:40→10:18)
[2018-07-05 07:42] LABS: ADD UMIC YES; UR ASCORBIC ACID NEGATIVE (NEGATIVE); UR BILIRUBIN (Dip) NEGATIVE (NEGATIVE); UR BLOOD (Dip) 1+ mg/dL (NEGATIVE); UR CLARITY CLEAR (CLEAR); UR COLOR YELLOW (YELLOW); UR GLUCOSE (Dip) 3+ mg/dL (NEGATIVE); UR KETONES (Dip) 2+ mg/dL (NEGATIVE); UR LEUKOCYTE ESTERASE (Dip) NEGATIVE Leu/ul (NEGATIVE); UR MUCUS FEW /HPF (NONE SEEN); UR NITRITE (Dip) NEGATIVE (NEGATIVE); UR RBC 0 /HPF (0-5); UR SPECIFIC GRAVITY (Dip) 1.036 (1.003-1.030); UR TOTAL PROTEIN (Dip) 1+ mg/dl (NEGATIVE); UR UROBILINOGEN (Dip) NEGATIVE (NEGATIVE); UR WBC 0 /HPF (0-5)
[2018-07-05 07:56] LABS: INR 0.96; PROTIME 12.9 Sec (11.9-14.9)
[2018-07-05 07:57] LABS: PARTIAL THROMBOPLASTIN TIME 25.9 Sec (23.0-35.0)
[2018-07-05] MEDS: SOD CHLORIDE 0.9% 100 ML (07:59)
[2018-07-05] MEDS ORDERED: GLUCAGON 1 MG INJ IM (08:00)
[2018-07-05] MEDS: IOHEXOL 100 ML (08:00)
[2018-07-05] MEDS ORDERED: GLUCOSE GEL 15 GRAM TUBE BUCCAL (08:00)
[2018-07-05] MEDS ORDERED: DEXTROSE 50% 50 ML SYRINGE IV ×2 (08:00)
[2018-07-05] MEDS ORDERED: GLUCOSE GEL 15 GRAM TUBE PO ×2 (08:00)
[2018-07-05 08:04] LABS: ALANINE AMINOTRANSFERASE 25 IU/L (13-69); ALBUMIN 4.6 g/dl (3.3-4.9); ALBUMIN/GLOBULIN RATIO 1.35; ALKALINE PHOSPHATASE 124 IU/L (42-121); ANION GAP 23 (5-13); ASPARTATE AMINO TRANSFERASE 51 IU/L (15-46); BILIRUBIN,INDIRECT 1.3 mg/dl (0-1.1); BILIRUBIN,TOTAL 1.3 mg/dl (0.2-1.3); BLOOD UREA NITROGEN 13 mg/dl (7-20); CALCIUM 9.5 mg/dl (8.4-10.2); CARBON DIOXIDE 20 mmol/L (21-31); CHLORIDE 97 mmol/L (97-110); CREATINE KINASE 812 IU/L (23-200); CREATININE 0.84 mg/dl (0.61-1.24); Estimated GFR > 60 mL/min (>60); GLUCOSE 325 mg/dl (70-220); POTASSIUM 4.5 mmol/L (3.5-5.1); SODIUM 140 mmol/L (135-144)
[2018-07-05 08:15] LABS: B-TYPE NATRIURETIC PEPTIDE < 11 PG/ML (0-125); CK INDEX 1.2; TROPONIN-I < 0.012 ng/ml (0.000-0.120)
[2018-07-05 08:18] LABS: CK-MB 9.35 ng/ml (0.0-2.4)
[2018-07-05] MEDS: INSULIN LISPRO 100 UNIT/ML VIAL SC (08:19)
[2018-07-05 08:42] LABS: AADO2 Arterial 19.5 mmHg (7.0-24.0); Allen Test ACCEPTAB; Arterial Base Excess -4.5 mmol/L (-3.0-3); Arterial Blood Gas Oxygen Sat 98.4 mmHG (95.0-98.0); Arterial COHb 0.3 % (0.0-3.0); Arterial Fraction of Oxyhgb 97.7 % (93.0-99.0); Arterial HCO3 21.3 mmol/L (22.0-26.0); Arterial MetHb 0.4 % (0.0-1.5); Arterial pCO2 42.1 mmhg (35-45); MODE NASAL CANNULA; Site Right Radial
== END 2018-07-05 11:04 | disposition home or self-care (01) ==
LOC: E/R 01:52
DX: R09.1 Pleurisy (principal); E11.65 Type 2 diabetes mellitus with hyperglycemia; I50.9 Heart failure, unspecified; I25.2 Old myocardial infarction; Z79.4 Long term (current) use of insulin
CPT/HCPCS: 36600; 71275; 80053; 81001; 82550; 82553; 82803; 82962; 83880; 84484; 85025; 85610; 85730; 93005; 96372; 96374; 96375; 96376; 99285-25

== ENCOUNTER 2018-07-25 18:47 | Emergency (ER) | payer BC ==
[2018-07-25] MEDS: SOD CHLORIDE 0.9% 1,000 ML IV (20:01)
[2018-07-25] MEDS: KETOROLAC 15 MG INJ IV (20:02)
[2018-07-25] MEDS: INSULIN LISPRO 100 UNIT/ML VIAL SC (20:02)
[2018-07-25] MEDS: ONDANSETRON 4 MG INJ IV (20:02)
[2018-07-25 20:08] LABS: WHITE BLOOD COUNT 3.9 10^3/ul (4.8-10.8)
[2018-07-25 20:08] LABS: HEMATOCRIT 39.5 % (42.0-52.0); HEMOGLOBIN 13.1 g/dl (14.0-18.0); MEAN CORPUSCULAR HEMOGLOBIN 30.8 pg (29.0-33.0); MEAN CORPUSCULAR HGB CONC 33.2 g/dl (32.0-37.0); MEAN CORPUSCULAR VOLUME 92.7 fl (82.0-101.0); MEAN PLATELET VOLUME 8.5 fl (7.4-10.4); PLATELET COUNT 380 10^3/UL (140-415); POSITIVE DIFF @See below; RED BLOOD COUNT 4.26 10^6/ul (4.70-6.10); RED CELL DISTRIBUTION WIDTH 14.4 % (11.5-14.5)
[2018-07-25 20:16] LABS: ADD MAN DIFF? YES
[2018-07-25 20:30] LABS: ALANINE AMINOTRANSFERASE 28 IU/L (13-69); ALBUMIN 4.7 g/dl (3.3-4.9); ALBUMIN/GLOBULIN RATIO 1.38; ALKALINE PHOSPHATASE 123 IU/L (42-121); ANION GAP 16 (5-13); ASPARTATE AMINO TRANSFERASE 39 IU/L (15-46); BILIRUBIN,INDIRECT 0.3 mg/dl (0-1.1); BILIRUBIN,TOTAL 0.3 mg/dl (0.2-1.3); BLOOD UREA NITROGEN 13 mg/dl (7-20); CALCIUM 9.3 mg/dl (8.4-10.2); CARBON DIOXIDE 26 mmol/L (21-31); CHLORIDE 101 mmol/L (97-110); CREATININE 1.06 mg/dl (0.61-1.24); Estimated GFR > 60 mL/min (>60); LIPASE 157 U/L (23-300); POTASSIUM 4.6 mmol/L (3.5-5.1); SODIUM 143 mmol/L (135-144); TOTAL PROTEIN 8.1 g/dl (6.1-8.1)
[2018-07-25 20:36] LABS: GLUCOSE 475 mg/dl (70-220)
[2018-07-25 20:40] LABS: TROPONIN-I < 0.012 ng/ml (0.000-0.120)
[2018-07-25 20:58] LABS: EOSINOPHILS % (M) 2 % (0-7); LYMPHOCYTES #M 1.6 10^3/ul (0.8-2.9); LYMPHOCYTES % (M) 43 % (15-51); MONOCYTE #M 0.3 10^3/ul (0.3-0.9); MONOCYTES % (M) 9 % (0-11); PLATELET ESTIMATE NORMAL; REACTIVE LYMPHOCYTES #M 0.1 10^3/ul (0.0-0.0); REACTIVE LYMPHOCYTES% (M) 3 % (0-0); SEGMENTED NEUTROPHILS (M) % 43 % (39-77); SMUDGE%M 6 % (0-0)
== END 2018-07-25 22:30 | disposition home or self-care (01) ==
LOC: E/R 18:47
DX: E11.65 Type 2 diabetes mellitus with hyperglycemia (principal); E86.0 Dehydration; J45.909 Unspecified asthma, uncomplicated; I25.2 Old myocardial infarction; I50.9 Heart failure, unspecified; Z79.4 Long term (current) use of insulin
CPT/HCPCS: 36415; 80053; 82962; 83690; 84484; 85025; 93005; 96372; 96374; 96375; 99284-25

== ENCOUNTER 2018-07-26 16:44 | Emergency (ER) | payer BC ==
[2018-07-26 18:13] LABS: ADD MAN DIFF? NO
[2018-07-26 18:15] LABS: BASOPHILS % 0.5 % (0.0-2.0); EOSINOPHILS % 0.8 % (0.0-7.0); HEMATOCRIT 41.1 % (42.0-52.0); HEMOGLOBIN 13.8 g/dl (14.0-18.0); LYMPHOCYTES # 1.8 10^3/ul (0.8-2.9); MEAN CORPUSCULAR HEMOGLOBIN 30.9 pg (29.0-33.0); MEAN CORPUSCULAR HGB CONC 33.6 g/dl (32.0-37.0); MEAN CORPUSCULAR VOLUME 91.9 fl (82.0-101.0); MEAN PLATELET VOLUME 8.2 fl (7.4-10.4); MONOCYTE # 0.4 10^3/ul (0.3-0.9); MONOCYTES % 9.1 % (0.0-11.0); NEUTROPHIL # 1.7 10^3/ul (1.6-7.5); NEUTROPHILS % 43.3 % (39.0-77.0); PLATELET COUNT 354 10^3/UL (140-415); RED BLOOD COUNT 4.47 10^6/ul (4.70-6.10); RED CELL DISTRIBUTION WIDTH 14.6 % (11.5-14.5)
[2018-07-26 18:15] LABS: WHITE BLOOD COUNT 3.9 10^3/ul (4.8-10.8)
[2018-07-26 18:37] LABS: ALANINE AMINOTRANSFERASE 25 IU/L (13-69); ALBUMIN 4.5 g/dl (3.3-4.9); ALBUMIN/GLOBULIN RATIO 1.25; ALKALINE PHOSPHATASE 79 IU/L (42-121); ANION GAP 18 (5-13); ASPARTATE AMINO TRANSFERASE 38 IU/L (15-46); BILIRUBIN,INDIRECT 0.4 mg/dl (0-1.1); BILIRUBIN,TOTAL 0.4 mg/dl (0.2-1.3); BLOOD UREA NITROGEN 8 mg/dl (7-20); CALCIUM 9.2 mg/dl (8.4-10.2); CARBON DIOXIDE 29 mmol/L (21-31); CHLORIDE 101 mmol/L (97-110); CREATININE 0.73 mg/dl (0.61-1.24); Estimated GFR > 60 mL/min (>60); GLUCOSE 307 mg/dl (70-220); POTASSIUM 4.8 mmol/L (3.5-5.1); SODIUM 148 mmol/L (135-144); TOTAL PROTEIN 8.1 g/dl (6.1-8.1)
[2018-07-26] MEDS: INSULIN LISPRO 100 UNIT/ML VIAL SC (21:29)
== END 2018-07-27 04:45 | disposition home or self-care (01) ==
LOC: E/R 07-27 04:45
DX: F10.920 Alcohol use, unspecified with intoxication, uncomplicated (principal); I50.9 Heart failure, unspecified; I25.2 Old myocardial infarction; E11.9 Type 2 diabetes mellitus without complications; Z79.4 Long term (current) use of insulin
CPT/HCPCS: 36415; 80053; 80307; 82962; 85025; 96372; 99284-25

== ENCOUNTER 2018-08-03 04:39 | Emergency (ER) | payer BC ==
[2018-08-03] MEDS: IBUPROFEN 800 MG TAB PO (07:02)
== END 2018-08-03 09:29 | disposition home or self-care (01) ==
LOC: E/R 04:39
DX: R07.89 Other chest pain (principal); E11.9 Type 2 diabetes mellitus without complications; F17.210 Nicotine dependence, cigarettes, uncomplicated; Z79.4 Long term (current) use of insulin
CPT/HCPCS: 71045; 82962; 93005; 99284-25

== ENCOUNTER 2018-08-03 19:08 | Emergency (ER) | payer SELFPAY, BC | END 2018-08-03 22:48 | disposition left against medical advice (07) | LOC: E/R 19:08 | DX: Z53.21 Procedure and treatment not carried out due to patient leaving prior to being seen by health care provider (principal) | CPT/HCPCS: 82962 ==

== ENCOUNTER 2018-08-04 18:56 | Emergency (ER) | payer BC ==
[2018-08-05] MEDS: IBUPROFEN 800 MG TAB PO (06:56)
[2018-08-05] MEDS: ONDANSETRON (ODT) 4 MG TAB ODT (07:49)
== END 2018-08-05 08:13 | disposition home or self-care (01) ==
LOC: FTE 18:56
DX: R07.89 Other chest pain (principal); E11.9 Type 2 diabetes mellitus without complications; F17.210 Nicotine dependence, cigarettes, uncomplicated; Z79.4 Long term (current) use of insulin
CPT/HCPCS: 82962; 93005; 99283-25

== ENCOUNTER 2018-08-09 18:44 | Emergency (ER) | payer BC ==
[2018-08-09 19:25] LABS: ADD MAN DIFF? NO
[2018-08-09 19:35] LABS: BASOPHILS % 0.3 % (0.0-2.0); EOSINOPHILS % 0.5 % (0.0-7.0); HEMATOCRIT 37.8 % (42.0-52.0); HEMOGLOBIN 13.1 g/dl (14.0-18.0); LYMPHOCYTES # 1.4 10^3/ul (0.8-2.9); LYMPHOCYTES % 37.4 % (15.0-51.0); MEAN CORPUSCULAR HEMOGLOBIN 30.9 pg (29.0-33.0); MEAN CORPUSCULAR HGB CONC 34.7 g/dl (32.0-37.0); MEAN CORPUSCULAR VOLUME 89.2 fl (82.0-101.0); MEAN PLATELET VOLUME 8.5 fl (7.4-10.4); MONOCYTE # 0.3 10^3/ul (0.3-0.9); MONOCYTES % 6.8 % (0.0-11.0); NEUTROPHIL # 2.1 10^3/ul (1.6-7.5); NEUTROPHILS % 54.7 % (39.0-77.0); PLATELET COUNT 300 10^3/UL (140-415); RED BLOOD COUNT 4.24 10^6/ul (4.70-6.10); RED CELL DISTRIBUTION WIDTH 14.6 % (11.5-14.5)
[2018-08-09 19:35] LABS: WHITE BLOOD COUNT 3.9 10^3/ul (4.8-10.8)
[2018-08-09] MEDS: SOD CHLORIDE 0.9% 1,000 ML IV ×2 (19:55→22:00)
[2018-08-09 20:04] LABS: TROPONIN-I 0.032 ng/ml (0.000-0.120)
[2018-08-09 20:08] LABS: ANION GAP 21 (5-13); BLOOD UREA NITROGEN 14 mg/dl (7-20); CALCIUM 9.5 mg/dl (8.4-10.2); CARBON DIOXIDE 23 mmol/L (21-31); CHLORIDE 98 mmol/L (97-110); CREATININE 1.25 mg/dl (0.61-1.24); Estimated GFR > 60 mL/min (>60); POTASSIUM 5.1 mmol/L (3.5-5.1); SODIUM 142 mmol/L (135-144)
[2018-08-09 20:11] LABS: GLUCOSE 460 mg/dl (70-220)
[2018-08-09] MEDS: KETOROLAC 15 MG INJ IV (22:00)
[2018-08-09] MEDS: INSULIN ASPART [NOVOLOG] 3 ML PEN SC (22:15)
== END 2018-08-10 00:10 | disposition home or self-care (01) ==
LOC: E/R 08-10 00:10
DX: R07.2 Precordial pain (principal); E10.65 Type 1 diabetes mellitus with hyperglycemia; I50.9 Heart failure, unspecified; J45.909 Unspecified asthma, uncomplicated; Z72.89 Other problems related to lifestyle; Z79.4 Long term (current) use of insulin
CPT/HCPCS: 36415; 71045; 80048; 82962; 84484; 85025; 93005; 96372; 96374; 99285-25

== ENCOUNTER 2018-08-15 00:58 | Inpatient (IN) | payer BC ==
[2018-08-15 02:57] LABS: MODE ROOM AIR; MetHgb Venous 0.4 %; Sample Type Blood venous; Site VENOUS LINE; Venous COHb 0.1 %; Venous Oxygen Sat 76.4 mmHG (55.0-75.0); Venous Total Hemglobin 13.7 g/dl
[2018-08-15 03:00] LABS: ADD MAN DIFF? NO
[2018-08-15 03:08] LABS: WHITE BLOOD COUNT 2.7 10^3/ul (4.8-10.8)
[2018-08-15 03:08] LABS: BASOPHILS % 0.4 % (0.0-2.0); EOSINOPHILS % 1.5 % (0.0-7.0); HEMATOCRIT 36.5 % (42.0-52.0); HEMOGLOBIN 12.5 g/dl (14.0-18.0); LYMPHOCYTES # 1.1 10^3/ul (0.8-2.9); LYMPHOCYTES % 42.3 % (15.0-51.0); MEAN CORPUSCULAR HEMOGLOBIN 30.9 pg (29.0-33.0); MEAN CORPUSCULAR HGB CONC 34.2 g/dl (32.0-37.0); MEAN CORPUSCULAR VOLUME 90.3 fl (82.0-101.0); MEAN PLATELET VOLUME 8.5 fl (7.4-10.4); MONOCYTE # 0.4 10^3/ul (0.3-0.9); MONOCYTES % 15.8 % (0.0-11.0); NEUTROPHIL # 1.1 10^3/ul (1.6-7.5); NEUTROPHILS % 39.6 % (39.0-77.0); PLATELET COUNT 297 10^3/UL (140-415); RED BLOOD COUNT 4.04 10^6/ul (4.70-6.10); RED CELL DISTRIBUTION WIDTH 14.3 % (11.5-14.5)
[2018-08-15] MEDS: SOD CHLORIDE 0.9% 730 ML IV (03:09)
[2018-08-15 03:17] LABS: URINE BLOOD (Dip) POC Negative (NEGATIVE); URINE KETONES (Dip) POC 2+ (NEGATIVE); URINE LEUKOCYTE EST (Dip) POC Negative (NEGATIVE); URINE NITRITE (Dip) POC Negative (NEGATIVE); URINE TOTAL PROTEIN POC Negative (NEGATIVE)
[2018-08-15 03:17] LABS: URINE PH (Dip) POC 5.5 (5.0-8.5)
[2018-08-15 03:25] LABS: INR 0.92; PROTIME 12.5 Sec (11.9-14.9)
[2018-08-15 03:35] LABS: ALANINE AMINOTRANSFERASE 25 IU/L (13-69); ALBUMIN 4.6 g/dl (3.3-4.9); ALBUMIN/GLOBULIN RATIO 1.35; ALKALINE PHOSPHATASE 124 IU/L (42-121); ANION GAP 23 (5-13); ASPARTATE AMINO TRANSFERASE 24 IU/L (15-46); BILIRUBIN,INDIRECT 0.3 mg/dl (0-1.1); BILIRUBIN,TOTAL 0.3 mg/dl (0.2-1.3); BLOOD UREA NITROGEN 12 mg/dl (7-20); CALCIUM 9.6 mg/dl (8.4-10.2); CARBON DIOXIDE 20 mmol/L (21-31); CHLORIDE 96 mmol/L (97-110); CREATININE 0.79 mg/dl (0.61-1.24); Estimated GFR > 60 mL/min (>60); MAGNESIUM 1.8 mg/dl (1.7-2.5); PHOSPHORUS 5.2 mg/dl (2.5-4.9); POTASSIUM 4.4 mmol/L (3.5-5.1); SODIUM 139 mmol/L (135-144)
[2018-08-15 03:43] LABS: GLUCOSE 480 mg/dl (70-220)
[2018-08-15 03:46] LABS: B-TYPE NATRIURETIC PEPTIDE 28 PG/ML (0-125); TROPONIN-I < 0.012 ng/ml (0.000-0.120)
[2018-08-15] MEDS ORDERED: NS + KCL 40 MEQ 1,000 ML IV (03:57)
[2018-08-15] MEDS ORDERED: D10/0.45% NACL + KCL 40 MEQ 1,000 ML IV (03:57)
[2018-08-15] MEDS ORDERED: DEXTROSE 10 %/0.45 % NACL 1,000 ML IV (03:57)
[2018-08-15] MEDS ORDERED: SOD CHLORIDE 0.9% 1,000 ML IV (03:57)
[2018-08-15] MEDS ORDERED: DEXTROSE 50% 50 ML SYRINGE IV ×3 (04:00→17:30)
[2018-08-15] MEDS ORDERED: INSULIN REGULAR, HUMAN 100 UNIT in SOD CHLORIDE 0.9% 100 ML IV (04:00)
[2018-08-15] MEDS: LACTATED RINGER S IV (04:21)
[2018-08-15] MEDS ORDERED: ALBUTEROL HFA 8 GM INHALER INH (05:30)
[2018-08-15] MEDS ORDERED: ACETAMINOPHEN 650MG/20.3ML CUP PO (05:30)
[2018-08-15] MEDS ORDERED: IPRATROPIUM (HFA) 12.9 GM INHALER INH (05:30)
[2018-08-15] MEDS: NS + KCL 30 MEQ 1,000 ML IV (05:31)
[2018-08-15] MEDS: INSULIN REGULAR, HUMAN 100 UNIT in SOD CHLORIDE 0.9% 99 ML IV (05:32)
[2018-08-15 05:35] LABS: MODE ROOM AIR; MetHgb Venous 0.4 %; Sample Type Blood venous; Site VENOUS LINE; Venous COHb 0.2 %; Venous Fraction OxyHgb 85.3 %; Venous Oxygen Sat 85.8 mmHG (55.0-75.0); Venous Total Hemglobin 15.1 g/dl
[2018-08-15 06:11] LABS: ANION GAP 19 (5-13); BLOOD UREA NITROGEN 11 mg/dl (7-20); CALCIUM 9.1 mg/dl (8.4-10.2); CARBON DIOXIDE 21 mmol/L (21-31); CHLORIDE 100 mmol/L (97-110); CREATININE 0.72 mg/dl (0.61-1.24); Estimated GFR > 60 mL/min (>60); MAGNESIUM 1.7 mg/dl (1.7-2.5); PHOSPHORUS 4.4 mg/dl (2.5-4.9); POTASSIUM 5.1 mmol/L (3.5-5.1); SODIUM 140 mmol/L (135-144)
[2018-08-15 06:12] LABS: HEMOGLOBIN A1C 9.6 % (0-5.9)
[2018-08-15 06:16] LABS: GLUCOSE 406 mg/dl (70-220)
[2018-08-15] MEDS: D10/0.45% NACL + KCL 30 MEQ 1,000 ML IV ×2 (07:00→14:30)
[2018-08-15 07:50] LABS: MODE ROOM AIR; MetHgb Venous 0.3 %; Sample Type Blood venous; Site VENOUS LINE; Venous COHb 0.3 %; Venous Oxygen Sat 88.5 mmHG (55.0-75.0); Venous Total Hemglobin 12.7 g/dl
[2018-08-15] MEDS: THIAMINE 100 MG TAB PO (08:12)
[2018-08-15] MEDS: FOLIC ACID 1 MG TAB PO (08:12)
[2018-08-15] MEDS: MULTIVITAMINS THERAPEUTIC TAB PO (08:12)
[2018-08-15 08:18] LABS: ANION GAP 17 (5-13); BLOOD UREA NITROGEN 10 mg/dl (7-20); CALCIUM 9.3 mg/dl (8.4-10.2); CARBON DIOXIDE 22 mmol/L (21-31); CHLORIDE 103 mmol/L (97-110); CREATININE 0.67 mg/dl (0.61-1.24); Estimated GFR > 60 mL/min (>60); GLUCOSE 274 mg/dl (70-220); MAGNESIUM 1.8 mg/dl (1.7-2.5); POTASSIUM 4.2 mmol/L (3.5-5.1); SODIUM 142 mmol/L (135-144)
[2018-08-15 08:24] LABS: TROPONIN-I < 0.012 ng/ml (0.000-0.120)
[2018-08-15] MEDS: CHLORDIAZEPOXIDE 25 MG CAP PO ×3 (08:25→21:00)
[2018-08-15] MEDS: HEPARIN 5,000 UNIT/1 ML VIAL SC ×2 (08:25→23:00)
[2018-08-15 09:55] LABS: AMPHETAMINE/METHAMPHETAMINE Negative (NEGATIVE); BARBITURATES Negative (NEGATIVE); BENZODIAZEPINES Positive (NEGATIVE); CANNABINOIDS Negative (NEGATIVE); COCAINE Negative (NEGATIVE); OPIATES Negative (NEGATIVE)
[2018-08-15 11:40] LABS: MODE ROOM AIR; MetHgb Venous 0.3 %; Sample Type Blood venous; Site VENOUS LINE; Venous COHb 0.2 %; Venous Fraction OxyHgb 63.7 %; Venous Total Hemglobin 12.9 g/dl
[2018-08-15 13:26] LABS: ADD UMIC NO; UR ASCORBIC ACID NEGATIVE (NEGATIVE); UR BILIRUBIN (Dip) NEGATIVE (NEGATIVE); UR BLOOD (Dip) NEGATIVE (NEGATIVE); UR CLARITY CLEAR (CLEAR); UR COLOR YELLOW (YELLOW); UR GLUCOSE (Dip) 3+ mg/dL (NEGATIVE); UR KETONES (Dip) 1+ mg/dL (NEGATIVE); UR LEUKOCYTE ESTERASE (Dip) NEGATIVE Leu/ul (NEGATIVE); UR NITRITE (Dip) NEGATIVE (NEGATIVE); UR TOTAL PROTEIN (Dip) NEGATIVE (NEGATIVE); UR UROBILINOGEN (Dip) NEGATIVE (NEGATIVE)
[2018-08-15 13:30] LABS: ANION GAP 8 (5-13); BLOOD UREA NITROGEN 9 mg/dl (7-20); CARBON DIOXIDE 30 mmol/L (21-31); CHLORIDE 104 mmol/L (97-110); CREATININE 0.71 mg/dl (0.61-1.24); Estimated GFR > 60 mL/min (>60); GLUCOSE 54 mg/dl (70-220); MAGNESIUM 1.8 mg/dl (1.7-2.5); POTASSIUM 3.9 mmol/L (3.5-5.1); SODIUM 142 mmol/L (135-144)
[2018-08-15] MEDS ORDERED: NICOTINE (14 MG/24 HR) PATCH TRANSDERM (13:30)
[2018-08-15] MEDS: ONDANSETRON 4 MG INJ IV (13:38)
[2018-08-15] MEDS: DEXTROSE 50% 50 ML SYRINGE IV (13:43)
[2018-08-15] MEDS: INSULIN GLARGINE [LANTus] (100 UNITS/ML) SYG SC ×2 (14:47→17:56)
[2018-08-15] MEDS: KETOROLAC 15 MG INJ IV (14:49)
[2018-08-15] MEDS ORDERED: GLUCAGON 1 MG INJ IM (17:30)
[2018-08-15] MEDS ORDERED: GLUCOSE GEL 15 GRAM TUBE BUCCAL (17:30)
[2018-08-15] MEDS ORDERED: GLUCOSE GEL 15 GRAM TUBE PO (17:30)
[2018-08-15] MEDS: INSULIN ASPART [NOVOLOG] 3 ML PEN SC ×4 (17:57→23:00)
[2018-08-15 21:11] LABS: ANION GAP 8 (5-13); BLOOD UREA NITROGEN 9 mg/dl (7-20); CARBON DIOXIDE 28 mmol/L (21-31); CHLORIDE 102 mmol/L (97-110); CREATININE 0.68 mg/dl (0.61-1.24); Estimated GFR > 60 mL/min (>60); GLUCOSE 152 mg/dl (70-220); MAGNESIUM 1.7 mg/dl (1.7-2.5); PHOSPHORUS 2.1 mg/dl (2.5-4.9); POTASSIUM 3.5 mmol/L (3.5-5.1); SODIUM 138 mmol/L (135-144)
[2018-08-16 01:14] LABS: ANION GAP 9 (5-13); BLOOD UREA NITROGEN 10 mg/dl (7-20); CALCIUM 8.8 mg/dl (8.4-10.2); CARBON DIOXIDE 28 mmol/L (21-31); CHLORIDE 99 mmol/L (97-110); Estimated GFR > 60 mL/min (>60); GLUCOSE 111 mg/dl (70-220); MAGNESIUM 1.6 mg/dl (1.7-2.5); PHOSPHORUS 4.3 mg/dl (2.5-4.9); POTASSIUM 3.5 mmol/L (3.5-5.1); SODIUM 136 mmol/L (135-144)
[2018-08-16] MEDS: ACCU-CHEK XX (02:30)
[2018-08-16] MEDS: LORAZEPAM 2 MG INJ IV ×2 (02:54→13:01)
[2018-08-16] MEDS: KETOROLAC 15 MG INJ IV (02:55)
[2018-08-16] MEDS: MULTIVITAMINS THERAPEUTIC TAB PO (08:22)
[2018-08-16] MEDS: THIAMINE 100 MG TAB PO (08:22)
[2018-08-16] MEDS: FOLIC ACID 1 MG TAB PO (08:22)
[2018-08-16] MEDS: CHLORDIAZEPOXIDE 25 MG CAP PO ×3 (08:22→21:01)
[2018-08-16] MEDS: HEPARIN 5,000 UNIT/1 ML VIAL SC ×2 (08:26→21:04)
[2018-08-16] MEDS: ENOXAPARIN 40 MG/0.4 ML SYG SC (08:27)
[2018-08-16 08:43] LABS: ABNORMAL IP MESSAGE 1; HEMATOCRIT 35.2 % (42.0-52.0); MEAN CORPUSCULAR HEMOGLOBIN 31.2 pg (29.0-33.0); MEAN CORPUSCULAR HGB CONC 34.1 g/dl (32.0-37.0); MEAN CORPUSCULAR VOLUME 91.4 fl (82.0-101.0); MEAN PLATELET VOLUME 8.9 fl (7.4-10.4); POSITIVE DIFF @See below; RED BLOOD COUNT 3.85 10^6/ul (4.70-6.10); RED CELL DISTRIBUTION WIDTH 14.8 % (11.5-14.5)
[2018-08-16 08:43] LABS: WHITE BLOOD COUNT 2.2 10^3/ul (4.8-10.8)
[2018-08-16] MEDS: INSULIN ASPART [NOVOLOG] 3 ML PEN SC ×7 (08:50→21:05)
[2018-08-16 08:55] LABS: PLATELET COUNT 237 10^3/UL (140-415)
[2018-08-16 08:56] LABS: ADD MAN DIFF? YES
[2018-08-16 09:04] LABS: ALANINE AMINOTRANSFERASE 14 IU/L (13-69); ALBUMIN 3.5 g/dl (3.3-4.9); ALBUMIN/GLOBULIN RATIO 1.12; ALKALINE PHOSPHATASE 68 IU/L (42-121); ANION GAP 8 (5-13); ASPARTATE AMINO TRANSFERASE 25 IU/L (15-46); BILIRUBIN,INDIRECT 0.8 mg/dl (0-1.1); BILIRUBIN,TOTAL 0.8 mg/dl (0.2-1.3); BLOOD UREA NITROGEN 10 mg/dl (7-20); CALCIUM 8.9 mg/dl (8.4-10.2); CARBON DIOXIDE 27 mmol/L (21-31); CHLORIDE 102 mmol/L (97-110); CREATININE 0.73 mg/dl (0.61-1.24); Estimated GFR > 60 mL/min (>60); GLUCOSE 341 mg/dl (70-220); SODIUM 137 mmol/L (135-144); TOTAL PROTEIN 6.6 g/dl (6.1-8.1)
[2018-08-16 09:05] LABS: LIPASE 81 U/L (23-300); MAGNESIUM 1.6 mg/dl (1.7-2.5)
[2018-08-16 09:05] LABS: PHOSPHORUS 4.5 mg/dl (2.5-4.9)
[2018-08-16 09:15] LABS: TROPONIN-I < 0.012 ng/ml (0.000-0.120)
[2018-08-16 09:41] LABS: HEMOGLOBIN A1C 9.6 % (0-5.9)
[2018-08-16 09:48] LABS: BAND NEUTROPHILS % (M) 4 % (0-4); BASOPHILS % (M) 1 % (0-2); EOSINOPHILS % (M) 2 % (0-7); LYMPHOCYTES #M 0.9 10^3/ul (0.8-2.9); LYMPHOCYTES % (M) 42 % (15-51); MONOCYTE #M 0.4 10^3/ul (0.3-0.9); MONOCYTES % (M) 19 % (0-11); PLATELET ESTIMATE NORMAL; POIKILOCYTOSIS 1+ (0-0); POLYCHROMASIA 3+ (0-0); REACTIVE LYMPHOCYTES #M 0.1 10^3/ul (0.0-0.0); REACTIVE LYMPHOCYTES% (M) 6 % (0-0); SEG NEUT #M 0.6 10^3/ul (1.6-7.5); SEGMENTED NEUTROPHILS (M) % 26 % (39-77); SMUDGE%M 12 % (0-0); TARGET CELLS 1+ (0-0)
[2018-08-16] MEDS: SOD CHLORIDE 0.9% 1,000 ML IV (11:11)
[2018-08-16] MEDS: MAGNESIUM SULFATE 3 GM in DEXTROSE 5% 100 ML IVPB (11:11)
[2018-08-16 12:58] LABS: PHOSPHORUS 4.7 mg/dl (2.5-4.9)
[2018-08-16] MEDS: ONDANSETRON 4 MG INJ IV (12:59)
[2018-08-16 16:16] LABS: ANION GAP 6 (5-13); BLOOD UREA NITROGEN 10 mg/dl (7-20); CALCIUM 8.8 mg/dl (8.4-10.2); CARBON DIOXIDE 27 mmol/L (21-31); CHLORIDE 101 mmol/L (97-110); CREATININE 0.69 mg/dl (0.61-1.24); Estimated GFR > 60 mL/min (>60); GLUCOSE 372 mg/dl (70-220); MAGNESIUM 2.6 mg/dl (1.7-2.5); PHOSPHORUS 4.3 mg/dl (2.5-4.9); POTASSIUM 4.5 mmol/L (3.5-5.1); SODIUM 134 mmol/L (135-144)
[2018-08-16] MEDS ORDERED: INSULIN GLARGINE [LANTus] (100 UNITS/ML) SYG SC (20:00)
[2018-08-16 20:39] LABS: ANION GAP 8 (5-13); BLOOD UREA NITROGEN 8 mg/dl (7-20); CALCIUM 9.2 mg/dl (8.4-10.2); CARBON DIOXIDE 28 mmol/L (21-31); CHLORIDE 103 mmol/L (97-110); CREATININE 0.75 mg/dl (0.61-1.24); Estimated GFR > 60 mL/min (>60); GLUCOSE 186 mg/dl (70-220); MAGNESIUM 2.4 mg/dl (1.7-2.5); PHOSPHORUS 3.3 mg/dl (2.5-4.9); POTASSIUM 3.7 mmol/L (3.5-5.1); SODIUM 139 mmol/L (135-144)
[2018-08-16] MEDS: INSULIN GLARGINE [LANTus] (100 UNITS/ML) SYG SC (21:03)
[2018-08-16] MEDS: AL HYDROX/MG HYDROX/SIMETH 30 ML CUP PO (23:56)
[2018-08-16] MEDS: ZOLPIDEM 5 MG TAB PO (23:58)
[2018-08-17] MEDS: SOD CHLORIDE 0.9% 1,000 ML IV ×3 (00:01→10:31)
[2018-08-17 01:18] LABS: ANION GAP 8 (5-13); BLOOD UREA NITROGEN 9 mg/dl (7-20); CALCIUM 8.8 mg/dl (8.4-10.2); CARBON DIOXIDE 28 mmol/L (21-31); CHLORIDE 100 mmol/L (97-110); Estimated GFR > 60 mL/min (>60); GLUCOSE 325 mg/dl (70-220); MAGNESIUM 1.9 mg/dl (1.7-2.5); PHOSPHORUS 4.2 mg/dl (2.5-4.9); SODIUM 136 mmol/L (135-144)
[2018-08-17] MEDS: ACCU-CHEK XX (02:00)
[2018-08-17 05:00] LABS: ADD MAN DIFF? NO
[2018-08-17 05:07] LABS: WHITE BLOOD COUNT 3.5 10^3/ul (4.8-10.8)
[2018-08-17 05:07] LABS: BASOPHILS % 0.3 % (0.0-2.0); EOSINOPHILS % 0.9 % (0.0-7.0); HEMATOCRIT 33.2 % (42.0-52.0); HEMOGLOBIN 11.2 g/dl (14.0-18.0); LYMPHOCYTES # 1.2 10^3/ul (0.8-2.9); LYMPHOCYTES % 35.2 % (15.0-51.0); MEAN CORPUSCULAR HGB CONC 33.7 g/dl (32.0-37.0); MEAN PLATELET VOLUME 8.5 fl (7.4-10.4); MONOCYTE # 0.5 10^3/ul (0.3-0.9); MONOCYTES % 15.2 % (0.0-11.0); NEUTROPHIL # 1.7 10^3/ul (1.6-7.5); NEUTROPHILS % 48.1 % (39.0-77.0); PLATELET COUNT 258 10^3/UL (140-415); RED BLOOD COUNT 3.61 10^6/ul (4.70-6.10); RED CELL DISTRIBUTION WIDTH 14.6 % (11.5-14.5)
[2018-08-17 05:53] LABS: ALANINE AMINOTRANSFERASE 21 IU/L (13-69); ALBUMIN 3.3 g/dl (3.3-4.9); ALBUMIN/GLOBULIN RATIO 1.17; ALKALINE PHOSPHATASE 66 IU/L (42-121); ANION GAP 7 (5-13); ASPARTATE AMINO TRANSFERASE 19 IU/L (15-46); BILIRUBIN,INDIRECT 0.5 mg/dl (0-1.1); BILIRUBIN,TOTAL 0.5 mg/dl (0.2-1.3); BLOOD UREA NITROGEN 8 mg/dl (7-20); CALCIUM 9.1 mg/dl (8.4-10.2); CARBON DIOXIDE 28 mmol/L (21-31); CHLORIDE 104 mmol/L (97-110); CREATININE 0.78 mg/dl (0.61-1.24); Estimated GFR > 60 mL/min (>60); GLUCOSE 291 mg/dl (70-220); POTASSIUM 3.9 mmol/L (3.5-5.1); SODIUM 139 mmol/L (135-144); TOTAL PROTEIN 6.1 g/dl (6.1-8.1)
[2018-08-17 06:02] LABS: PHOSPHORUS 4.4 mg/dl (2.5-4.9)
[2018-08-17] MEDS: INSULIN ASPART [NOVOLOG] 3 ML PEN SC ×7 (08:57→21:00)
[2018-08-17] MEDS ORDERED: FOLIC ACID 1 MG TAB PO (09:00)
[2018-08-17] MEDS: FOLIC ACID 1 MG TAB PO (09:00)
[2018-08-17] MEDS: CHLORDIAZEPOXIDE 25 MG CAP PO ×3 (09:00→21:00)
[2018-08-17] MEDS: THIAMINE 100 MG TAB PO (09:00)
[2018-08-17] MEDS: MULTIVITAMINS THERAPEUTIC TAB PO (09:00)
[2018-08-17] MEDS: ENOXAPARIN 40 MG/0.4 ML SYG SC (13:52)
[2018-08-17] MEDS: FAMOTIDINE 20 MG TAB PO ×2 (14:37→22:23)
[2018-08-17] MEDS: METOCLOPRAMIDE 5 MG TAB PO ×2 (14:37→22:23)
[2018-08-17] MEDS: LIDOCAINE/MYLANTA 40 ML BTL PO (14:37)
[2018-08-17] MEDS: INSULIN GLARGINE [LANTus] (100 UNITS/ML) SYG SC (20:00)
[2018-08-17] MEDS: GLUCOSE GEL 15 GRAM TUBE PO (22:22)
[2018-08-17] MEDS: KETOROLAC 15 MG INJ IV (22:22)
[2018-08-18] MEDS: CHLORDIAZEPOXIDE 25 MG CAP PO ×2 (00:34→08:37)
[2018-08-18] MEDS: ZOLPIDEM 5 MG TAB PO (01:29)
[2018-08-18] MEDS: ACCU-CHEK XX (02:00)
[2018-08-18 05:15] LABS: ADD MAN DIFF? NO
[2018-08-18 05:32] LABS: WHITE BLOOD COUNT 3.4 10^3/ul (4.8-10.8)
[2018-08-18 05:32] LABS: BASOPHILS % 0.3 % (0.0-2.0); EOSINOPHILS % 0.6 % (0.0-7.0); HEMATOCRIT 33.8 % (42.0-52.0); HEMOGLOBIN 11.3 g/dl (14.0-18.0); LYMPHOCYTES # 1.4 10^3/ul (0.8-2.9); LYMPHOCYTES % 41.1 % (15.0-51.0); MEAN CORPUSCULAR HGB CONC 33.4 g/dl (32.0-37.0); MEAN CORPUSCULAR VOLUME 92.6 fl (82.0-101.0); MEAN PLATELET VOLUME 8.8 fl (7.4-10.4); MONOCYTE # 0.4 10^3/ul (0.3-0.9); MONOCYTES % 12.5 % (0.0-11.0); NEUTROPHIL # 1.5 10^3/ul (1.6-7.5); NEUTROPHILS % 45.2 % (39.0-77.0); PLATELET COUNT 263 10^3/UL (140-415); RED BLOOD COUNT 3.65 10^6/ul (4.70-6.10); RED CELL DISTRIBUTION WIDTH 14.8 % (11.5-14.5)
[2018-08-18 05:48] LABS: LIPASE 106 U/L (23-300)
[2018-08-18 05:49] LABS: ALANINE AMINOTRANSFERASE 23 IU/L (13-69); ALBUMIN 3.5 g/dl (3.3-4.9); ALKALINE PHOSPHATASE 65 IU/L (42-121); ANION GAP 11 (5-13); ASPARTATE AMINO TRANSFERASE 24 IU/L (15-46); BILIRUBIN,INDIRECT 0.3 mg/dl (0-1.1); BILIRUBIN,TOTAL 0.3 mg/dl (0.2-1.3); BLOOD UREA NITROGEN 10 mg/dl (7-20); CALCIUM 9.1 mg/dl (8.4-10.2); CARBON DIOXIDE 27 mmol/L (21-31); CHLORIDE 100 mmol/L (97-110); CREATININE 0.81 mg/dl (0.61-1.24); Estimated GFR > 60 mL/min (>60); GLUCOSE 317 mg/dl (70-220); SODIUM 138 mmol/L (135-144); TOTAL PROTEIN 6.4 g/dl (6.1-8.1)
[2018-08-18] MEDS: ENOXAPARIN 40 MG/0.4 ML SYG SC (08:35)
[2018-08-18] MEDS: INSULIN ASPART [NOVOLOG] 3 ML PEN SC ×2 (08:36)
[2018-08-18] MEDS: METOCLOPRAMIDE 5 MG TAB PO (08:37)
[2018-08-18] MEDS: THIAMINE 100 MG TAB PO (08:37)
[2018-08-18] MEDS: FAMOTIDINE 20 MG TAB PO (08:37)
[2018-08-18] MEDS: FOLIC ACID 1 MG TAB PO (08:37)
[2018-08-18] MEDS: MULTIVITAMINS THERAPEUTIC TAB PO (08:37)
[2018-08-18] MEDS ORDERED: ZOLPIDEM 5 MG TAB PO (21:00)
== END 2018-08-18 12:41 | disposition left against medical advice (07) | DRG 638 ==
LOC: MS1 08-16 12:10 → E/R 00:58 → 6WM 22:15
PROVIDERS: Internal Medicine
DX: E11.10 Type 2 diabetes mellitus with ketoacidosis without coma (principal); I42.9 Cardiomyopathy, unspecified; F10.229 Alcohol dependence with intoxication, unspecified; Z91.14 Patient's other noncompliance with medication regimen; Z72.0 Tobacco use
CPT/HCPCS: 36415; 71045; 80048; 80053; 80307; 81003; 82803; 82962; 83036; 83690; 83735; 83880; 84100; 84443; 84484; 85025; 85610; 85730; 90686; 93005; 96360; 99291-25

== ENCOUNTER 2018-08-19 02:04 | Inpatient (IN) | payer BC ==
[2018-08-19 03:38] LABS: ADD MAN DIFF? NO
[2018-08-19 03:45] LABS: ADD UMIC NO; UR ASCORBIC ACID NEGATIVE (NEGATIVE); UR BILIRUBIN (Dip) NEGATIVE (NEGATIVE); UR BLOOD (Dip) NEGATIVE (NEGATIVE); UR CLARITY CLEAR (CLEAR); UR COLOR COLORLESS (YELLOW); UR GLUCOSE (Dip) 3+ mg/dL (NEGATIVE); UR KETONES (Dip) NEGATIVE (NEGATIVE); UR LEUKOCYTE ESTERASE (Dip) NEGATIVE Leu/ul (NEGATIVE); UR NITRITE (Dip) NEGATIVE (NEGATIVE); UR SPECIFIC GRAVITY (Dip) 1.022 (1.003-1.030); UR TOTAL PROTEIN (Dip) NEGATIVE (NEGATIVE); UR UROBILINOGEN (Dip) NEGATIVE (NEGATIVE)
[2018-08-19 03:58] LABS: ANION GAP 19 (5-13); BLOOD UREA NITROGEN 10 mg/dl (7-20); CALCIUM 9.7 mg/dl (8.4-10.2); CARBON DIOXIDE 22 mmol/L (21-31); CHLORIDE 102 mmol/L (97-110); CREATININE 0.93 mg/dl (0.61-1.24); Estimated GFR > 60 mL/min (>60); MAGNESIUM 2.1 mg/dl (1.7-2.5); PHOSPHORUS 4.7 mg/dl (2.5-4.9); SODIUM 143 mmol/L (135-144)
[2018-08-19 04:05] LABS: GLUCOSE 653 mg/dl (70-220)
[2018-08-19 04:09] LABS: TROPONIN-I < 0.012 ng/ml (0.000-0.120)
[2018-08-19] MEDS ORDERED: NS + KCL 40 MEQ 1,000 ML IV (04:14)
[2018-08-19] MEDS ORDERED: NS + KCL 30 MEQ 1,000 ML IV (04:14)
[2018-08-19] MEDS ORDERED: D10/0.45% NACL + KCL 30 MEQ 1,000 ML IV (04:14)
[2018-08-19] MEDS ORDERED: DEXTROSE 10 %/0.45 % NACL 1,000 ML IV (04:14)
[2018-08-19] MEDS ORDERED: SOD CHLORIDE 0.9% 1,000 ML IV (04:14)
[2018-08-19] MEDS ORDERED: D10/0.45% NACL + KCL 40 MEQ 1,000 ML IV (04:14)
[2018-08-19 04:19] LABS: POTASSIUM 5.3 mmol/L (3.5-5.1)
[2018-08-19] MEDS ORDERED: LACTATED RINGER'S 740 ML IV (04:30)
[2018-08-19] MEDS ORDERED: DEXTROSE 50% 50 ML SYRINGE IV ×4 (04:30→09:00)
[2018-08-19 04:41] LABS: MODE ROOM AIR; MetHgb Venous 0.4 %; Sample Type Blood venous; Site VENOUS LINE; Venous COHb 0 %; Venous Fraction OxyHgb 77.1 %; Venous Oxygen Sat 77.4 mmHG (55.0-75.0); Venous Total Hemglobin 12.6 g/dl
[2018-08-19] MEDS: SOD CHLORIDE 0.9% 740 ML IV (05:07)
[2018-08-19 05:09] LABS: HEMOGLOBIN A1C 9.8 % (0-5.9)
[2018-08-19] MEDS: INSULIN REGULAR, HUMAN 100 UNIT in SOD CHLORIDE 0.9% 100 ML IV (06:52)
[2018-08-19] MEDS: SOD CHLORIDE 0.9% 1,000 ML IV (06:52)
[2018-08-19] MEDS: ONDANSETRON 4 MG INJ IV (06:57)
[2018-08-19] MEDS: HYDROCODONE/APAP (5/325) TAB PO ×3 (06:57→18:51)
[2018-08-19 07:14] LABS: ANION GAP 14 (5-13); BLOOD UREA NITROGEN 11 mg/dl (7-20); CALCIUM 9.5 mg/dl (8.4-10.2); CARBON DIOXIDE 26 mmol/L (21-31); CHLORIDE 103 mmol/L (97-110); CREATININE 0.93 mg/dl (0.61-1.24); Estimated GFR > 60 mL/min (>60); PHOSPHORUS 4.5 mg/dl (2.5-4.9); POTASSIUM 4.6 mmol/L (3.5-5.1); SODIUM 143 mmol/L (135-144)
[2018-08-19 07:16] LABS: GLUCOSE 533 mg/dl (70-220)
[2018-08-19 07:52] LABS: WHITE BLOOD COUNT 3.5 10^3/ul (4.8-10.8)
[2018-08-19 07:52] LABS: BASOPHILS % 0.3 % (0.0-2.0); EOSINOPHILS % 0.6 % (0.0-7.0); HEMATOCRIT 34.5 % (42.0-52.0); HEMOGLOBIN 11.7 g/dl (14.0-18.0); LYMPHOCYTES # 1.6 10^3/ul (0.8-2.9); LYMPHOCYTES % 44.6 % (15.0-51.0); MEAN CORPUSCULAR HEMOGLOBIN 31.4 pg (29.0-33.0); MEAN CORPUSCULAR HGB CONC 33.9 g/dl (32.0-37.0); MEAN CORPUSCULAR VOLUME 92.5 fl (82.0-101.0); MEAN PLATELET VOLUME 8.6 fl (7.4-10.4); MONOCYTE # 0.4 10^3/ul (0.3-0.9); NEUTROPHIL # 1.5 10^3/ul (1.6-7.5); NEUTROPHILS % 43.9 % (39.0-77.0); PLATELET COUNT 286 10^3/UL (140-415); POSITIVE DIFF @See below; RED BLOOD COUNT 3.73 10^6/ul (4.70-6.10); RED CELL DISTRIBUTION WIDTH 15.6 % (11.5-14.5)
[2018-08-19] MEDS: LORAZEPAM 2 MG INJ IV (08:16)
[2018-08-19] MEDS: FOLIC ACID 1 MG TAB PO (08:16)
[2018-08-19] MEDS: MULTIVITAMINS THERAPEUTIC TAB PO (08:16)
[2018-08-19] MEDS ORDERED: GLUCOSE GEL 15 GRAM TUBE PO ×2 (09:00)
[2018-08-19] MEDS ORDERED: GLUCAGON 1 MG INJ IM (09:00)
[2018-08-19] MEDS ORDERED: GLUCOSE GEL 15 GRAM TUBE BUCCAL (09:00)
[2018-08-19 09:06] LABS: ANISOCYTOSIS 2+ (0-0); BAND NEUTROPHILS % (M) 1 % (0-4); HYPOCHROMASIA 1+ (0-0); LYMPHOCYTES #M 1.3 10^3/ul (0.8-2.9); LYMPHOCYTES % (M) 38 % (15-51); MICROCYTOSIS 1+ (0-0); MONOCYTE #M 0.4 10^3/ul (0.3-0.9); MONOCYTES % (M) 12 % (0-11); PLATELET ESTIMATE NORMAL; POLYCHROMASIA 3+ (0-0); REACTIVE LYMPHOCYTES% (M) 2 % (0-0); SEG NEUT #M 1.6 10^3/ul (1.6-7.5); SEGMENTED NEUTROPHILS (M) % 47 % (39-77); SMUDGE%M 5 % (0-0)
[2018-08-19 10:39] LABS: CREATINE KINASE 178 IU/L (23-200)
[2018-08-19] MEDS: THIAMINE 200 MG INJ IM (10:46)
[2018-08-19] MEDS: INSULIN GLARGINE [LANTus] (100 UNITS/ML) SYG SC (10:48)
[2018-08-19 10:50] LABS: CK INDEX 0.5; CK-MB 0.94 ng/ml (0.0-2.4); TROPONIN-I < 0.012 ng/ml (0.000-0.120)
[2018-08-19] MEDS ORDERED: LORAZEPAM 1 MG TAB PO (11:00)
[2018-08-19 11:16] LABS: ALANINE AMINOTRANSFERASE 23 IU/L (13-69); ALBUMIN 4.1 g/dl (3.3-4.9); ALBUMIN/GLOBULIN RATIO 1.36; ALKALINE PHOSPHATASE 68 IU/L (42-121); ANION GAP 16 (5-13); ASPARTATE AMINO TRANSFERASE 38 IU/L (15-46); BILIRUBIN,INDIRECT 0.2 mg/dl (0-1.1); BILIRUBIN,TOTAL 0.2 mg/dl (0.2-1.3); BLOOD UREA NITROGEN 10 mg/dl (7-20); CALCIUM 9.6 mg/dl (8.4-10.2); CARBON DIOXIDE 25 mmol/L (21-31); CHLORIDE 106 mmol/L (97-110); CREATININE 0.74 mg/dl (0.61-1.24); Estimated GFR > 60 mL/min (>60); GLUCOSE 109 mg/dl (70-220); POTASSIUM 3.9 mmol/L (3.5-5.1); SODIUM 147 mmol/L (135-144); TOTAL PROTEIN 7.1 g/dl (6.1-8.1)
[2018-08-19] MEDS: INSULIN ASPART [NOVOLOG] 3 ML PEN SC ×5 (11:30→21:00)
[2018-08-19 15:42] LABS: CREATINE KINASE 143 IU/L (23-200)
[2018-08-19 15:53] LABS: CK INDEX 0.4; CK-MB 0.64 ng/ml (0.0-2.4); TROPONIN-I < 0.012 ng/ml (0.000-0.120)
[2018-08-20] MEDS: HYDROCODONE/APAP (5/325) TAB PO ×2 (02:34→08:34)
[2018-08-20] MEDS ORDERED: PANTOPRAZOLE 40 MG INJ IV (06:00)
[2018-08-20] MEDS: FAMOTIDINE 20 MG TAB PO ×2 (08:29→20:45)
[2018-08-20] MEDS: FOLIC ACID 1 MG TAB PO (08:29)
[2018-08-20] MEDS: MULTIVITAMINS THERAPEUTIC TAB PO (08:29)
[2018-08-20] MEDS: INSULIN ASPART [NOVOLOG] 3 ML PEN SC ×7 (08:32→20:48)
[2018-08-20] MEDS: INSULIN GLARGINE [LANTus] (100 UNITS/ML) SYG SC (08:33)
[2018-08-20 09:05] LABS: ADD MAN DIFF? NO
[2018-08-20 09:07] LABS: WHITE BLOOD COUNT 3.9 10^3/ul (4.8-10.8)
[2018-08-20 09:07] LABS: BASOPHILS % 0.5 % (0.0-2.0); EOSINOPHILS # 0.1 10^3/ul (0.0-0.5); EOSINOPHILS % 1.3 % (0.0-7.0); HEMATOCRIT 33.1 % (42.0-52.0); LYMPHOCYTES # 1.8 10^3/ul (0.8-2.9); LYMPHOCYTES % 45.5 % (15.0-51.0); MEAN CORPUSCULAR HEMOGLOBIN 31.2 pg (29.0-33.0); MEAN CORPUSCULAR HGB CONC 33.2 g/dl (32.0-37.0); MEAN CORPUSCULAR VOLUME 93.8 fl (82.0-101.0); MEAN PLATELET VOLUME 8.4 fl (7.4-10.4); MONOCYTE # 0.4 10^3/ul (0.3-0.9); MONOCYTES % 11.1 % (0.0-11.0); NEUTROPHIL # 1.6 10^3/ul (1.6-7.5); NEUTROPHILS % 41.1 % (39.0-77.0); PLATELET COUNT 243 10^3/UL (140-415); POSITIVE DIFF @See below; RED BLOOD COUNT 3.53 10^6/ul (4.70-6.10); RED CELL DISTRIBUTION WIDTH 14.9 % (11.5-14.5)
[2018-08-20 09:26] LABS: ANION GAP 9 (5-13); BLOOD UREA NITROGEN 13 mg/dl (7-20); CALCIUM 8.5 mg/dl (8.4-10.2); CARBON DIOXIDE 31 mmol/L (21-31); CHLORIDE 98 mmol/L (97-110); CREATININE 0.76 mg/dl (0.61-1.24); Estimated GFR > 60 mL/min (>60); GLUCOSE 229 mg/dl (70-220); MAGNESIUM 1.7 mg/dl (1.7-2.5); PHOSPHORUS 4.8 mg/dl (2.5-4.9); POTASSIUM 3.6 mmol/L (3.5-5.1); SODIUM 138 mmol/L (135-144)
[2018-08-20 09:41] LABS: ANISOCYTOSIS 1+ (0-0); BAND NEUTROPHILS % (M) 1 % (0-4); EOSINOPHILS % (M) 1 % (0-7); HYPOCHROMASIA 2+ (0-0); LYMPHOCYTES % (M) 52 % (15-51); MONOCYTE #M 0.3 10^3/ul (0.3-0.9); MONOCYTES % (M) 8 % (0-11); PLATELET ESTIMATE NORMAL; POLYCHROMASIA 1+ (0-0); SEG NEUT #M 1.5 10^3/ul (1.6-7.5); SEGMENTED NEUTROPHILS (M) % 38 % (39-77); SMUDGE%M 5 % (0-0)
[2018-08-20] MEDS: THIAMINE 200 MG INJ IM (11:39)
[2018-08-20] MEDS: ACETAMINOPHEN 650MG/20.3ML CUP PO ×2 (15:24→22:16)
[2018-08-20] MEDS: LORAZEPAM 1 MG TAB PO (22:40)
[2018-08-21] MEDS: INSULIN ASPART [NOVOLOG] 3 ML PEN SC ×2 (08:32→08:33)
[2018-08-21] MEDS: INSULIN GLARGINE [LANTus] (100 UNITS/ML) SYG SC (08:34)
[2018-08-21] MEDS: THIAMINE 200 MG INJ IM (09:00)
[2018-08-21] MEDS: FAMOTIDINE 20 MG TAB PO (09:17)
[2018-08-21] MEDS: ACETAMINOPHEN 650MG/20.3ML CUP PO (09:20)
== END 2018-08-21 11:45 | disposition home or self-care (01) | DRG 638 ==
LOC: E/R 02:04 → ICU 05:41 → 2NE 19:07
PROVIDERS: Family Medicine
DX: E11.65 Type 2 diabetes mellitus with hyperglycemia (principal); I42.6 Alcoholic cardiomyopathy; F10.188 Alcohol abuse with other alcohol-induced disorder; D72.818 Other decreased white blood cell count; F10.129 Alcohol abuse with intoxication, unspecified; F17.200 Nicotine dependence, unspecified, uncomplicated; J45.909 Unspecified asthma, uncomplicated; R07.9 Chest pain, unspecified; Y90.7 Blood alcohol level of 200-239 mg/100 ml; Z91.14 Patient's other noncompliance with medication regimen; Z79.4 Long term (current) use of insulin
CPT/HCPCS: 36415; 71045; 80048; 80053; 80307; 81003; 82550; 82553; 82803; 82962; 83036; 83735; 84100; 84484; 85025; 87040-91; 87081; 87086; 93005; 93306; 99285-25

== ENCOUNTER 2018-10-25 19:54 | Emergency (ER) | payer BC ==
[2018-10-25] MEDS: SOD CHLORIDE 0.9% 1,000 ML IV (20:26)
[2018-10-25] MEDS: ONDANSETRON 4 MG INJ IV (20:26)
== END 2018-10-26 03:42 | disposition home or self-care (01) ==
LOC: E/R 10-26 03:42
DX: F10.920 Alcohol use, unspecified with intoxication, uncomplicated (principal); J45.909 Unspecified asthma, uncomplicated; E11.9 Type 2 diabetes mellitus without complications; I50.9 Heart failure, unspecified; F17.210 Nicotine dependence, cigarettes, uncomplicated; R94.02 Abnormal brain scan; Z79.4 Long term (current) use of insulin
CPT/HCPCS: 70450; 82962; 96374; 99285-25

== ENCOUNTER 2018-10-27 05:16 | Emergency (ER) | payer BC ==
[2018-10-27] MEDS: KETOROLAC 30 MG INJ IM (06:54)
== END 2018-10-27 08:08 | disposition home or self-care (01) ==
LOC: E/R 05:16
DX: R07.9 Chest pain, unspecified (principal); I50.9 Heart failure, unspecified; E11.9 Type 2 diabetes mellitus without complications; J45.909 Unspecified asthma, uncomplicated; F17.210 Nicotine dependence, cigarettes, uncomplicated; Z79.4 Long term (current) use of insulin
CPT/HCPCS: 71045; 82962; 93005; 96372; 99284-25

== ENCOUNTER 2018-11-13 21:26 | Emergency (ER) | payer BC ==
[2018-11-14] MEDS: SOD CHLORIDE 0.9% 1,000 ML IV (02:16)
[2018-11-14 02:25] LABS: ADD MAN DIFF? NO
[2018-11-14 02:27] LABS: WHITE BLOOD COUNT 3.3 10^3/ul (4.8-10.8)
[2018-11-14 02:27] LABS: ABNORMAL IP MESSAGE 1; BASOPHILS % 0.9 % (0.0-2.0); EOSINOPHILS % 0.9 % (0.0-7.0); HEMATOCRIT 37.1 % (42.0-52.0); HEMOGLOBIN 12.3 g/dl (14.0-18.0); LYMPHOCYTES # 2.1 10^3/ul (0.8-2.9); LYMPHOCYTES % 64.9 % (15.0-51.0); MEAN CORPUSCULAR HEMOGLOBIN 29.4 pg (29.0-33.0); MEAN CORPUSCULAR HGB CONC 33.2 g/dl (32.0-37.0); MEAN CORPUSCULAR VOLUME 88.5 fl (82.0-101.0); MEAN PLATELET VOLUME 8.4 fl (7.4-10.4); MONOCYTE # 0.3 10^3/ul (0.3-0.9); MONOCYTES % 9.1 % (0.0-11.0); NEUTROPHIL # 0.8 10^3/ul (1.6-7.5); NEUTROPHILS % 24.2 % (39.0-77.0); PLATELET COUNT 315 10^3/UL (140-415); POSITIVE DIFF @See below; RED BLOOD COUNT 4.19 10^6/ul (4.70-6.10); RED CELL DISTRIBUTION WIDTH 14.9 % (11.5-14.5)
[2018-11-14 02:39] LABS: ADD UMIC NO; UR ASCORBIC ACID NEGATIVE (NEGATIVE); UR BILIRUBIN (Dip) NEGATIVE (NEGATIVE); UR BLOOD (Dip) NEGATIVE (NEGATIVE); UR CLARITY CLEAR (CLEAR); UR COLOR STRAW (YELLOW); UR GLUCOSE (Dip) 3+ mg/dL (NEGATIVE); UR KETONES (Dip) TRACE mg/dL (NEGATIVE); UR LEUKOCYTE ESTERASE (Dip) NEGATIVE Leu/ul (NEGATIVE); UR NITRITE (Dip) NEGATIVE (NEGATIVE); UR SPECIFIC GRAVITY (Dip) 1.029 (1.003-1.030); UR TOTAL PROTEIN (Dip) NEGATIVE (NEGATIVE); UR UROBILINOGEN (Dip) NEGATIVE (NEGATIVE)
[2018-11-14 02:47] LABS: INR 0.98; PROTIME 13.1 Sec (11.9-14.9)
[2018-11-14 02:59] LABS: ALANINE AMINOTRANSFERASE 23 IU/L (13-69); ALBUMIN 4.4 g/dl (3.3-4.9); ALBUMIN/GLOBULIN RATIO 1.25; ALKALINE PHOSPHATASE 91 IU/L (42-121); ANION GAP 15 (5-13); ASPARTATE AMINO TRANSFERASE 36 IU/L (15-46); BILIRUBIN,INDIRECT 0.6 mg/dl (0-1.1); BILIRUBIN,TOTAL 0.6 mg/dl (0.2-1.3); BLOOD UREA NITROGEN 11 mg/dl (7-20); CALCIUM 8.8 mg/dl (8.4-10.2); CARBON DIOXIDE 24 mmol/L (21-31); CHLORIDE 109 mmol/L (97-110); CREATININE 0.97 mg/dl (0.61-1.24); Estimated GFR > 60 mL/min (>60); GLUCOSE 327 mg/dl (70-220); POTASSIUM 4.4 mmol/L (3.5-5.1); SODIUM 148 mmol/L (135-144); TOTAL PROTEIN 7.9 g/dl (6.1-8.1)
[2018-11-14 03:10] LABS: TROPONIN-I < 0.012 ng/ml (0.000-0.120)
[2018-11-14] MEDS: FAMOTIDINE 20 MG INJ IV (04:10)
[2018-11-14] MEDS: BELLADONNA/PHENOBARBITAL TAB PO (04:10)
[2018-11-14] MEDS: LIDOCAINE/MYLANTA 40 ML BTL PO (04:10)
[2018-11-14] MEDS: ONDANSETRON 4 MG INJ IV (04:10)
== END 2018-11-14 05:52 | disposition home or self-care (01) ==
LOC: E/R 21:26
DX: D72.819 Decreased white blood cell count, unspecified (principal); D64.9 Anemia, unspecified; R10.13 Epigastric pain; E11.65 Type 2 diabetes mellitus with hyperglycemia; I50.9 Heart failure, unspecified; J45.909 Unspecified asthma, uncomplicated; F17.210 Nicotine dependence, cigarettes, uncomplicated; Z79.4 Long term (current) use of insulin
CPT/HCPCS: 36415; 71045; 80053; 80307; 81003; 82962; 84484; 85025; 85610; 93005; 96374; 96375; 99285-25

== ENCOUNTER 2018-11-16 00:20 | Emergency (ER) | payer BC | END 2018-11-16 04:22 | disposition home or self-care (01) | LOC: E/R 00:20 | DX: F10.920 Alcohol use, unspecified with intoxication, uncomplicated (principal); E11.9 Type 2 diabetes mellitus without complications; I11.0 Hypertensive heart disease with heart failure; I50.9 Heart failure, unspecified; J44.9 Chronic obstructive pulmonary disease, unspecified; Z79.4 Long term (current) use of insulin; Z87.891 Personal history of nicotine dependence | CPT/HCPCS: 82962; 99282 ==

== ENCOUNTER 2018-11-16 17:02 | Emergency (ER) | payer BC ==
[2018-11-16 19:00] LABS: ADD MAN DIFF? NO
[2018-11-16 19:03] LABS: WHITE BLOOD COUNT 3.3 10^3/ul (4.8-10.8)
[2018-11-16 19:03] LABS: BASOPHILS % 0.6 % (0.0-2.0); EOSINOPHILS # 0.1 10^3/ul (0.0-0.5); EOSINOPHILS % 1.8 % (0.0-7.0); HEMATOCRIT 38.3 % (42.0-52.0); LYMPHOCYTES # 1.4 10^3/ul (0.8-2.9); LYMPHOCYTES % 43.8 % (15.0-51.0); MEAN CORPUSCULAR HEMOGLOBIN 29.5 pg (29.0-33.0); MEAN CORPUSCULAR HGB CONC 33.9 g/dl (32.0-37.0); MEAN CORPUSCULAR VOLUME 86.8 fl (82.0-101.0); MEAN PLATELET VOLUME 8.6 fl (7.4-10.4); MONOCYTE # 0.3 10^3/ul (0.3-0.9); MONOCYTES % 8.8 % (0.0-11.0); NEUTROPHIL # 1.5 10^3/ul (1.6-7.5); PLATELET COUNT 305 10^3/UL (140-415); RED BLOOD COUNT 4.41 10^6/ul (4.70-6.10); RED CELL DISTRIBUTION WIDTH 15.1 % (11.5-14.5)
[2018-11-16 19:21] LABS: ALANINE AMINOTRANSFERASE 30 IU/L (13-69); ALBUMIN 4.6 g/dl (3.3-4.9); ALBUMIN/GLOBULIN RATIO 1.21; ALKALINE PHOSPHATASE 101 IU/L (42-121); ANION GAP 20 (5-13); ASPARTATE AMINO TRANSFERASE 83 IU/L (15-46); BILIRUBIN,INDIRECT 1.3 mg/dl (0-1.1); BILIRUBIN,TOTAL 1.3 mg/dl (0.2-1.3); BLOOD UREA NITROGEN 9 mg/dl (7-20); CALCIUM 8.8 mg/dl (8.4-10.2); CARBON DIOXIDE 20 mmol/L (21-31); CHLORIDE 103 mmol/L (97-110); CREATININE 0.88 mg/dl (0.61-1.24); Estimated GFR > 60 mL/min (>60); POTASSIUM 4.4 mmol/L (3.5-5.1); SODIUM 143 mmol/L (135-144); TOTAL PROTEIN 8.4 g/dl (6.1-8.1)
[2018-11-16 19:26] LABS: GLUCOSE 525 mg/dl (70-220)
== END 2018-11-16 21:09 | disposition home or self-care (01) ==
LOC: E/R 17:02
DX: K92.0 Hematemesis (principal); F10.20 Alcohol dependence, uncomplicated
CPT/HCPCS: 36415; 80053; 80307; 85025; 86850; 86900; 86901; 99283

== ENCOUNTER 2018-12-01 19:48 | Emergency (ER) | payer BC ==
[2018-12-01] MEDS: ONDANSETRON (ODT) 4 MG TAB ODT (20:21)
[2018-12-01] MEDS: KETOROLAC 30 MG INJ IM (20:21)
== END 2018-12-01 21:40 | disposition home or self-care (01) ==
LOC: E/R 19:48
DX: R07.9 Chest pain, unspecified (principal); I50.9 Heart failure, unspecified; J45.909 Unspecified asthma, uncomplicated; F17.210 Nicotine dependence, cigarettes, uncomplicated; R11.10 Vomiting, unspecified; Z79.4 Long term (current) use of insulin
CPT/HCPCS: 71045; 82962; 93005; 96372; 99284-25

== ENCOUNTER 2018-12-05 22:37 | Emergency (ER) | payer BC ==
[2018-12-06 00:09] LABS: ADD MAN DIFF? NO
[2018-12-06 00:11] LABS: BASOPHILS % 0.8 % (0.0-2.0); EOSINOPHILS # 0.1 10^3/ul (0.0-0.5); EOSINOPHILS % 2.3 % (0.0-7.0); HEMATOCRIT 40.3 % (42.0-52.0); HEMOGLOBIN 13.2 g/dl (14.0-18.0); LYMPHOCYTES # 2.1 10^3/ul (0.8-2.9); LYMPHOCYTES % 53.5 % (15.0-51.0); MEAN CORPUSCULAR HEMOGLOBIN 29.7 pg (29.0-33.0); MEAN CORPUSCULAR HGB CONC 32.8 g/dl (32.0-37.0); MEAN CORPUSCULAR VOLUME 90.6 fl (82.0-101.0); MEAN PLATELET VOLUME 8.2 fl (7.4-10.4); MONOCYTE # 0.2 10^3/ul (0.3-0.9); MONOCYTES % 5.8 % (0.0-11.0); NEUTROPHIL # 1.5 10^3/ul (1.6-7.5); NEUTROPHILS % 37.6 % (39.0-77.0); PLATELET COUNT 353 10^3/UL (140-415); RED BLOOD COUNT 4.45 10^6/ul (4.70-6.10)
[2018-12-06 00:28] LABS: ALANINE AMINOTRANSFERASE 21 IU/L (13-69); ALBUMIN 4.7 g/dl (3.3-4.9); ALBUMIN/GLOBULIN RATIO 1.27; ALKALINE PHOSPHATASE 124 IU/L (42-121); ANION GAP 22 (5-13); ASPARTATE AMINO TRANSFERASE 34 IU/L (15-46); BILIRUBIN,INDIRECT 0.6 mg/dl (0-1.1); BILIRUBIN,TOTAL 0.6 mg/dl (0.2-1.3); BLOOD UREA NITROGEN 13 mg/dl (7-20); CALCIUM 9.5 mg/dl (8.4-10.2); CARBON DIOXIDE 23 mmol/L (21-31); CHLORIDE 103 mmol/L (97-110); CREATININE 0.86 mg/dl (0.61-1.24); Estimated GFR > 60 mL/min (>60); GLUCOSE 373 mg/dl (70-220); POTASSIUM 4.3 mmol/L (3.5-5.1); SODIUM 148 mmol/L (135-144); TOTAL PROTEIN 8.4 g/dl (6.1-8.1)
[2018-12-06 00:39] LABS: TROPONIN-I < 0.012 ng/ml (0.000-0.120)
== END 2018-12-06 01:27 | disposition home or self-care (01) ==
LOC: E/R 22:37
DX: R07.9 Chest pain, unspecified (principal); E11.9 Type 2 diabetes mellitus without complications; I11.0 Hypertensive heart disease with heart failure; I50.9 Heart failure, unspecified; J45.909 Unspecified asthma, uncomplicated; F17.210 Nicotine dependence, cigarettes, uncomplicated; Z79.4 Long term (current) use of insulin
CPT/HCPCS: 71045; 80053; 84484; 85025; 99284-25

== ENCOUNTER 2018-12-06 22:42 | Emergency (ER) | payer BC ==
[2018-12-07] MEDS: ONDANSETRON (ODT) 4 MG TAB ODT (05:48)
[2018-12-07] MEDS: KETOROLAC 30 MG INJ IM (05:48)
== END 2018-12-07 06:11 | disposition home or self-care (01) ==
LOC: E/R 22:42
DX: E11.65 Type 2 diabetes mellitus with hyperglycemia (principal); J45.909 Unspecified asthma, uncomplicated; I11.0 Hypertensive heart disease with heart failure; I50.9 Heart failure, unspecified; F17.210 Nicotine dependence, cigarettes, uncomplicated; R11.2 Nausea with vomiting, unspecified; Z79.4 Long term (current) use of insulin
CPT/HCPCS: 82962; 93005; 96372; 99284-25

== ENCOUNTER 2018-12-16 23:21 | Emergency (ER) | payer BC ==
[2018-12-17] MEDS: SOD CHLORIDE 0.9% 750 ML IV (03:08)
[2018-12-17 03:13] LABS: WHITE BLOOD COUNT 5.2 10^3/ul (4.8-10.8)
[2018-12-17 03:13] LABS: HEMATOCRIT 34.2 % (42.0-52.0); HEMOGLOBIN 11.3 g/dl (14.0-18.0); MEAN CORPUSCULAR HEMOGLOBIN 29.8 pg (29.0-33.0); MEAN CORPUSCULAR VOLUME 90.2 fl (82.0-101.0); MEAN PLATELET VOLUME 7.7 fl (7.4-10.4); PLATELET COUNT 249 10^3/UL (140-415); POSITIVE DIFF @See below; RED BLOOD COUNT 3.79 10^6/ul (4.70-6.10); RED CELL DISTRIBUTION WIDTH 15.2 % (11.5-14.5)
[2018-12-17 03:16] LABS: ADD MAN DIFF? YES
[2018-12-17 03:17] LABS: MODE ROOM AIR; MetHgb Venous 0.3 %; Sample Type Blood venous; Site VENOUS LINE; Venous COHb 0 %; Venous Fraction OxyHgb 79.5 %; Venous Oxygen Sat 79.7 mmHG (55.0-75.0); Venous Total Hemglobin 12.2 g/dl
[2018-12-17 03:26] LABS: ADD UMIC NO; UR ASCORBIC ACID NEGATIVE (NEGATIVE); UR BILIRUBIN (Dip) NEGATIVE (NEGATIVE); UR BLOOD (Dip) NEGATIVE (NEGATIVE); UR CLARITY CLEAR (CLEAR); UR COLOR STRAW (YELLOW); UR GLUCOSE (Dip) 3+ mg/dL (NEGATIVE); UR KETONES (Dip) 1+ mg/dL (NEGATIVE); UR LEUKOCYTE ESTERASE (Dip) NEGATIVE Leu/ul (NEGATIVE); UR NITRITE (Dip) NEGATIVE (NEGATIVE); UR SPECIFIC GRAVITY (Dip) 1.023 (1.003-1.030); UR TOTAL PROTEIN (Dip) NEGATIVE (NEGATIVE); UR UROBILINOGEN (Dip) NEGATIVE (NEGATIVE)
[2018-12-17 03:41] LABS: ANION GAP 14 (5-13); BLOOD UREA NITROGEN 9 mg/dl (7-20); CALCIUM 9.1 mg/dl (8.4-10.2); CARBON DIOXIDE 28 mmol/L (21-31); CHLORIDE 102 mmol/L (97-110); CREATININE 0.96 mg/dl (0.61-1.24); Estimated GFR > 60 mL/min (>60); GLUCOSE 378 mg/dl (70-220); LIPASE 72 U/L (23-300); MAGNESIUM 1.9 mg/dl (1.7-2.5); PHOSPHORUS 4.8 mg/dl (2.5-4.9); POTASSIUM 4.6 mmol/L (3.5-5.1); SODIUM 144 mmol/L (135-144)
[2018-12-17 04:22] LABS: EOSINOPHILS % (M) 1 % (0-7); LYMPHOCYTES #M 2.3 10^3/ul (0.8-2.9); LYMPHOCYTES % (M) 46 % (15-51); MONOCYTE #M 0.3 10^3/ul (0.3-0.9); MONOCYTES % (M) 6 % (0-11); PLATELET ESTIMATE NORMAL; SEGMENTED NEUTROPHILS (M) % 47 % (39-77); SMUDGE%M 10 % (0-0)
== END 2018-12-17 06:09 | disposition home or self-care (01) ==
LOC: E/R 23:21
DX: E11.65 Type 2 diabetes mellitus with hyperglycemia (principal); I50.9 Heart failure, unspecified; J45.909 Unspecified asthma, uncomplicated; F17.210 Nicotine dependence, cigarettes, uncomplicated; R07.9 Chest pain, unspecified; Z79.4 Long term (current) use of insulin
CPT/HCPCS: 36415; 80048; 81003; 82803; 82962; 83690; 83735; 84100; 85025; 93005; 99284-25

== ENCOUNTER 2018-12-17 11:54 | Emergency (ER) | payer BC ==
[2018-12-17 12:50] LABS: WHITE BLOOD COUNT 3.7 10^3/ul (4.8-10.8)
[2018-12-17 12:50] LABS: HEMATOCRIT 35.6 % (42.0-52.0); HEMOGLOBIN 11.7 g/dl (14.0-18.0); MEAN CORPUSCULAR HEMOGLOBIN 29.3 pg (29.0-33.0); MEAN CORPUSCULAR HGB CONC 32.9 g/dl (32.0-37.0); MEAN CORPUSCULAR VOLUME 89.2 fl (82.0-101.0); MEAN PLATELET VOLUME 8.2 fl (7.4-10.4); PLATELET COUNT 290 10^3/UL (140-415); POSITIVE DIFF @See below; RED BLOOD COUNT 3.99 10^6/ul (4.70-6.10); RED CELL DISTRIBUTION WIDTH 14.9 % (11.5-14.5)
[2018-12-17 12:51] LABS: ADD MAN DIFF? YES
[2018-12-17 13:10] LABS: ALANINE AMINOTRANSFERASE 61 IU/L (13-69); ALBUMIN 4.8 g/dl (3.3-4.9); ALKALINE PHOSPHATASE 139 IU/L (42-121); ANION GAP 22 (5-13); ASPARTATE AMINO TRANSFERASE 82 IU/L (15-46); BILIRUBIN,INDIRECT 0.6 mg/dl (0-1.1); BILIRUBIN,TOTAL 0.6 mg/dl (0.2-1.3); BLOOD UREA NITROGEN 12 mg/dl (7-20); CALCIUM 9.2 mg/dl (8.4-10.2); CARBON DIOXIDE 21 mmol/L (21-31); CHLORIDE 101 mmol/L (97-110); CREATININE 0.88 mg/dl (0.61-1.24); Estimated GFR > 60 mL/min (>60); LIPASE 86 U/L (23-300); POTASSIUM 4.8 mmol/L (3.5-5.1); SODIUM 144 mmol/L (135-144); TOTAL PROTEIN 7.8 g/dl (6.1-8.1)
[2018-12-17 13:14] LABS: GLUCOSE 470 mg/dl (70-220)
[2018-12-17 13:20] LABS: TROPONIN-I < 0.012 ng/ml (0.000-0.120)
[2018-12-17 13:21] LABS: EOSINOPHILS % (M) 1 % (0-7); LYMPHOCYTES #M 1.3 10^3/ul (0.8-2.9); LYMPHOCYTES % (M) 36 % (15-51); MONOCYTE #M 0.1 10^3/ul (0.3-0.9); MONOCYTES % (M) 4 % (0-11); PLATELET ESTIMATE NORMAL; POLYCHROMASIA 1+ (0-0); REACTIVE LYMPHOCYTES #M 0.1 10^3/ul (0.0-0.0); REACTIVE LYMPHOCYTES% (M) 5 % (0-0); SEGMENTED NEUTROPHILS (M) % 54 % (39-77); SMUDGE%M 2 % (0-0)
[2018-12-17] MEDS: SOD CHLORIDE 0.9% 1,000 ML IV ×2 (14:03→14:23)
[2018-12-17] MEDS: INSULIN REGULAR, HUMAN 100 UNIT/1 ML 3ML VIAL SC (14:12)
[2018-12-17] MEDS: KETOROLAC 30 MG INJ IV (14:21)
== END 2018-12-17 16:46 | disposition home or self-care (01) ==
LOC: FTE 11:54
DX: E11.65 Type 2 diabetes mellitus with hyperglycemia (principal); J45.909 Unspecified asthma, uncomplicated; I50.9 Heart failure, unspecified; Z79.4 Long term (current) use of insulin; Z87.891 Personal history of nicotine dependence
CPT/HCPCS: 36415; 71045; 80053; 80307; 82962; 83690; 84484; 85025; 93005; 96372; 96374; 99285-25

== ENCOUNTER 2018-12-17 20:17 | Emergency (ER) | payer SELFPAY, BC | END 2018-12-17 20:25 | disposition left against medical advice (07) | LOC: E/R 20:17 | DX: Z53.21 Procedure and treatment not carried out due to patient leaving prior to being seen by health care provider (principal) ==

== ENCOUNTER 2018-12-26 16:27 | Emergency (ER) | payer BC ==
[2018-12-26] MEDS: SOD CHLORIDE 0.9% 1,000 ML IV (17:11)
[2018-12-26 17:26] LABS: ADD MAN DIFF? NO
[2018-12-26 17:28] LABS: WHITE BLOOD COUNT 3.4 10^3/ul (4.8-10.8)
[2018-12-26 17:28] LABS: BASOPHILS % 0.6 % (0.0-2.0); EOSINOPHILS # 0.1 10^3/ul (0.0-0.5); EOSINOPHILS % 1.8 % (0.0-7.0); HEMATOCRIT 34.3 % (42.0-52.0); HEMOGLOBIN 11.3 g/dl (14.0-18.0); LYMPHOCYTES # 1.4 10^3/ul (0.8-2.9); LYMPHOCYTES % 41.8 % (15.0-51.0); MEAN CORPUSCULAR HEMOGLOBIN 29.9 pg (29.0-33.0); MEAN CORPUSCULAR HGB CONC 32.9 g/dl (32.0-37.0); MEAN CORPUSCULAR VOLUME 90.7 fl (82.0-101.0); MEAN PLATELET VOLUME 8.2 fl (7.4-10.4); MONOCYTE # 0.3 10^3/ul (0.3-0.9); MONOCYTES % 10.1 % (0.0-11.0); NEUTROPHIL # 1.5 10^3/ul (1.6-7.5); NEUTROPHILS % 45.7 % (39.0-77.0); PLATELET COUNT 240 10^3/UL (140-415); RED BLOOD COUNT 3.78 10^6/ul (4.70-6.10); RED CELL DISTRIBUTION WIDTH 15.1 % (11.5-14.5)
[2018-12-26] MEDS: KETOROLAC 15 MG INJ IV (17:33)
[2018-12-26 17:51] LABS: ALANINE AMINOTRANSFERASE 35 IU/L (13-69); ALBUMIN 4.1 g/dl (3.3-4.9); ALBUMIN/GLOBULIN RATIO 1.28; ALKALINE PHOSPHATASE 132 IU/L (42-121); ANION GAP 12 (5-13); ASPARTATE AMINO TRANSFERASE 37 IU/L (15-46); BILIRUBIN,INDIRECT 0.5 mg/dl (0-1.1); BILIRUBIN,TOTAL 0.5 mg/dl (0.2-1.3); BLOOD UREA NITROGEN 14 mg/dl (7-20); CALCIUM 9.2 mg/dl (8.4-10.2); CARBON DIOXIDE 27 mmol/L (21-31); CHLORIDE 105 mmol/L (97-110); CREATININE 0.87 mg/dl (0.61-1.24); Estimated GFR > 60 mL/min (>60); GLUCOSE 375 mg/dl (70-220); LIPASE 174 U/L (23-300); POTASSIUM 3.7 mmol/L (3.5-5.1); SODIUM 144 mmol/L (135-144); TOTAL PROTEIN 7.3 g/dl (6.1-8.1)
[2018-12-26 18:01] LABS: TROPONIN-I < 0.012 ng/ml (0.000-0.120)
== END 2018-12-26 18:42 | disposition home or self-care (01) ==
LOC: E/R 16:27
DX: F10.129 Alcohol abuse with intoxication, unspecified (principal); E11.9 Type 2 diabetes mellitus without complications; I11.0 Hypertensive heart disease with heart failure; I50.9 Heart failure, unspecified; J45.909 Unspecified asthma, uncomplicated; F17.210 Nicotine dependence, cigarettes, uncomplicated; Z79.4 Long term (current) use of insulin
CPT/HCPCS: 36415; 80053; 80307; 83690; 84484; 85025; 93005; 96361; 96374; 99284-25

== ENCOUNTER 2019-01-01 21:59 | Emergency (ER) | payer BC ==
[2019-01-02] MEDS: ONDANSETRON (ODT) 4 MG TAB ODT (00:22)
[2019-01-02 00:30] LABS: ADD MAN DIFF? NO; BASOPHILS % 0.9 % (0.0-2.0); EOSINOPHILS # 0.1 10^3/ul (0.0-0.5); EOSINOPHILS % 2.5 % (0.0-7.0); HEMATOCRIT 37.2 % (42.0-52.0); HEMOGLOBIN 12.1 g/dl (14.0-18.0); LYMPHOCYTES # 1.7 10^3/ul (0.8-2.9); LYMPHOCYTES % 38.6 % (15.0-51.0); MEAN CORPUSCULAR HEMOGLOBIN 29.9 pg (29.0-33.0); MEAN CORPUSCULAR HGB CONC 32.5 g/dl (32.0-37.0); MEAN CORPUSCULAR VOLUME 91.9 fl (82.0-101.0); MEAN PLATELET VOLUME 8.4 fl (7.4-10.4); MONOCYTE # 0.3 10^3/ul (0.3-0.9); MONOCYTES % 6.9 % (0.0-11.0); NEUTROPHIL # 2.3 10^3/ul (1.6-7.5); NEUTROPHILS % 50.9 % (39.0-77.0); PLATELET COUNT 336 10^3/UL (140-415); RED BLOOD COUNT 4.05 10^6/ul (4.70-6.10); RED CELL DISTRIBUTION WIDTH 15.2 % (11.5-14.5)
[2019-01-02 00:30] LABS: WHITE BLOOD COUNT 4.5 10^3/ul (4.8-10.8)
[2019-01-02 00:49] LABS: ALANINE AMINOTRANSFERASE 70 IU/L (13-69); ALBUMIN 4.6 g/dl (3.3-4.9); ALBUMIN/GLOBULIN RATIO 1.27; ALKALINE PHOSPHATASE 104 IU/L (42-121); ANION GAP 14 (5-13); ASPARTATE AMINO TRANSFERASE 111 IU/L (15-46); BILIRUBIN,INDIRECT 0.6 mg/dl (0-1.1); BILIRUBIN,TOTAL 0.6 mg/dl (0.2-1.3); BLOOD UREA NITROGEN 19 mg/dl (7-20); CALCIUM 9.5 mg/dl (8.4-10.2); CARBON DIOXIDE 28 mmol/L (21-31); CHLORIDE 101 mmol/L (97-110); CREATININE 1.01 mg/dl (0.61-1.24); Estimated GFR > 60 mL/min (>60); LIPASE 124 U/L (23-300); POTASSIUM 4.8 mmol/L (3.5-5.1); SODIUM 143 mmol/L (135-144); TOTAL PROTEIN 8.2 g/dl (6.1-8.1)
[2019-01-02 01:07] LABS: GLUCOSE 459 mg/dl (70-220)
[2019-01-02] MEDS ORDERED: ACCU-CHEK XX ×4 (01:30→04:00)
[2019-01-02] MEDS ORDERED: SOD CHLORIDE 0.9% 1,000 ML IV (01:30)
[2019-01-02] MEDS ORDERED: INSULIN LISPRO 100 UNIT/ML VIAL SC (01:30)
[2019-01-02] MEDS: INSULIN LISPRO 100 UNIT/ML VIAL SC (01:51)
== END 2019-01-02 02:48 | disposition home or self-care (01) ==
LOC: E/R 01-02 02:48
DX: F10.10 Alcohol abuse, uncomplicated (principal); J45.909 Unspecified asthma, uncomplicated; I50.9 Heart failure, unspecified; I11.0 Hypertensive heart disease with heart failure; E11.65 Type 2 diabetes mellitus with hyperglycemia; D64.9 Anemia, unspecified; Z79.4 Long term (current) use of insulin; Z87.891 Personal history of nicotine dependence
CPT/HCPCS: 80053; 80307; 82962; 83690; 85025; 93005; 96372; 99284-25

== ENCOUNTER 2019-01-03 21:10 | Emergency (ER) | payer BC ==
[2019-01-03 22:01] LABS: ADD MAN DIFF? NO
[2019-01-03 22:03] LABS: WHITE BLOOD COUNT 4.8 10^3/ul (4.8-10.8)
[2019-01-03 22:03] LABS: BASOPHILS % 0.6 % (0.0-2.0); EOSINOPHILS # 0.1 10^3/ul (0.0-0.5); EOSINOPHILS % 1.2 % (0.0-7.0); HEMATOCRIT 41.5 % (42.0-52.0); HEMOGLOBIN 13.3 g/dl (14.0-18.0); LYMPHOCYTES # 1.5 10^3/ul (0.8-2.9); LYMPHOCYTES % 30.4 % (15.0-51.0); MEAN CORPUSCULAR HEMOGLOBIN 29.1 pg (29.0-33.0); MEAN CORPUSCULAR VOLUME 90.8 fl (82.0-101.0); MEAN PLATELET VOLUME 8.1 fl (7.4-10.4); MONOCYTE # 0.2 10^3/ul (0.3-0.9); MONOCYTES % 4.5 % (0.0-11.0); NEUTROPHILS % 62.9 % (39.0-77.0); PLATELET COUNT 381 10^3/UL (140-415); RED BLOOD COUNT 4.57 10^6/ul (4.70-6.10); RED CELL DISTRIBUTION WIDTH 15.1 % (11.5-14.5)
[2019-01-03] MEDS: KETOROLAC 60 MG INJ IM (22:15)
[2019-01-03] MEDS: ONDANSETRON (ODT) 4 MG TAB ODT (22:15)
[2019-01-03 22:23] LABS: ALANINE AMINOTRANSFERASE 61 IU/L (13-69); ALBUMIN 4.8 g/dl (3.3-4.9); ALKALINE PHOSPHATASE 101 IU/L (42-121); ANION GAP 20 (5-13); ASPARTATE AMINO TRANSFERASE 71 IU/L (15-46); BILIRUBIN,INDIRECT 0.6 mg/dl (0-1.1); BILIRUBIN,TOTAL 0.6 mg/dl (0.2-1.3); BLOOD UREA NITROGEN 11 mg/dl (7-20); CALCIUM 9.2 mg/dl (8.4-10.2); CARBON DIOXIDE 26 mmol/L (21-31); CHLORIDE 95 mmol/L (97-110); CREATININE 0.94 mg/dl (0.61-1.24); Estimated GFR > 60 mL/min (>60); GLUCOSE 322 mg/dl (70-220); POTASSIUM 4.7 mmol/L (3.5-5.1); SODIUM 141 mmol/L (135-144); TOTAL PROTEIN 8.8 g/dl (6.1-8.1)
[2019-01-03 22:34] LABS: TROPONIN-I < 0.012 ng/ml (0.000-0.120)
== END 2019-01-03 23:17 | disposition home or self-care (01) ==
LOC: E/R 23:17
DX: M94.0 Chondrocostal junction syndrome [Tietze] (principal); J45.909 Unspecified asthma, uncomplicated; I50.9 Heart failure, unspecified; E11.65 Type 2 diabetes mellitus with hyperglycemia; Z79.84 Long term (current) use of oral hypoglycemic drugs
CPT/HCPCS: 80053; 80307; 82962; 84484; 85025; 93005; 96372; 99284-25

== ENCOUNTER 2019-01-09 21:17 | Emergency (ER) | payer BC | END 2019-01-10 00:35 | disposition home or self-care (01) | LOC: E/R 01-10 00:35 | DX: F10.921 Alcohol use, unspecified with intoxication delirium (principal); E11.9 Type 2 diabetes mellitus without complications; J45.909 Unspecified asthma, uncomplicated; I50.9 Heart failure, unspecified; R41.82 Altered mental status, unspecified; Z79.4 Long term (current) use of insulin | CPT/HCPCS: 70450; 82962; 99284-25 ==

== ENCOUNTER 2019-01-19 12:14 | Emergency (ER) | payer SELFPAY, BC ==
[2019-01-19] MEDS ORDERED: SOD CHLORIDE 0.9% 800 ML IV (15:30)
== END 2019-01-19 18:12 | disposition left against medical advice (07) ==
LOC: E/R 12:14
DX: Z53.21 Procedure and treatment not carried out due to patient leaving prior to being seen by health care provider (principal)
CPT/HCPCS: 82962